=== PATIENT | female | born 1955 | race Caucasian/White ===

== ENCOUNTER → 2018-03-02 07:37 | Outpatient (CLI) | payer BC, SELFPAY ==
--- NOTE | 2018-03-02 07:54 | MR_ITS ---
MR lumbar spine wo con , MR 3-d myelogram/MRCP Ordering Physician: Elier Helms Patient Age: 62 years: Female HISTORY: ITS.REASON: LUMBAGO W/SCIATICA, LT LEG WEAKNESS, LEFT LEG NUMBNESS Low back pain. 2 weeks. Left leg pain numbness tingling. Patient bent forward and could not get up. TECHNIQUE: MRI lumbar spine without contrast Sagittal STIR, T1, T2, axial T1 and T2. On 1.5T Siemens wide bore MRI. 3-D MR myelogram image set obtained & performed on MRI workstation. Additional sagittal thin section T2 weighted dataset obtained from this latter acquisition as well (---76 CPT) COMPARISON :March 14, 2014 FINDINGS Slight progression of degenerative changes since 2013. L5/S1. Disc intact. Bilateral facet arthropathy only slightly narrows the central canal.. L4/5. Mild disc bulge most evident towards left foramen. Moderate/generous posterior element and facet hypertrophy. Bilateral foraminal and recess encroachment most pronounced on LEFT. Slight additional bulge the left since 2013 Mild spinal stenosis. L3/4 degenerative disc space narrowing most notable this level. Diffuse disc bulge with mild posterior hypertrophic ridging. Disc bulge most pronounced at encroach upon left foramen.. Generous facet and posterior element hypertrophy. Combination of features yield generous foraminal recess encroachment on LEFT more so than right. Mild progression of findings here since 2013. Borderline/Mild central canal stenosis L2/3. Mild disc space narrowing mild asymmetric bulge slightly more evident to the left. Bilateral Foraminal disc bulge most evident towards left foramen Mild to moderate left foraminal encroachment more so than right . L1/2, T12/L1 T 11/12. Disc intact neural foramen widely patent. Conus ends appropriately at L1. 3-D myelogram image set shows tapering, narrowing of the spinal canal most evident at L3/4 & L4/5. Scant on the left at L2/3 . The vertebral bodies appear intact. No lesions. Normal alignment. Facets appear satisfactory and unit L1 upper sacrum unremarkable. note: This study was dictated with a voice-recognition system. There may be typographical error is related to such. If they are significant please notify us for corrections IMPRESSION: Only slight progression of degenerative changes with slight additional encroachment upon left recess and left foramen L3/4 and L4/5 versus 2014 L4/5. It mild central canal stenosis and left foraminal encroachment. Only perhaps subtle progression since since 2014 Prominent facet hypertrophy mild disc bulge most evident towards left foramen. Recess and foraminal encroachment most evident the left. L3/L4 generous left foraminal & recess encroachment more so than right. Only perhaps subtle progression since since 2013 Borderline/mild spinal stenosis Degenerative disc space narrowing, with diffuse disc bulge most evident towards the left foramen. Bilateral facet hypertrophy. L2/3. Mild disc bulge towards left foramen. Mild facet hypertrophy.. Mild/moderate left foraminal encroachment L2 5/S1 Bilateral facet hypertrophy with mild disc bulge
== END ==
PROVIDERS: PCP Internal Medicine; Visit Provider Internal Medicine
DX: M54.42 Lumbago with sciatica, left side (principal); R29.898 Other symptoms and signs involving the musculoskeletal system
CPT/HCPCS: 72148; 76376

== ENCOUNTER → 2018-03-20 15:24 | Outpatient (CLI) | payer BC, SELFPAY ==
--- NOTE | 2018-03-20 | NVE_ITS ---
Venous Exam Indications: 729.5 Pain in limb. 729.81 Swelling of limb. IMPRESSIONS 1. There is no evidence of significant Reflux. 2. No evidence of deep vein thrombusinvolving the left lower extremity. 3. Superficial thrombophelbitis seen back of calf. History: c/o knot back of calf x 2 days Left lower extremity venous duplex evaluation. Doppler flow study including spectral analysis, color and hutchison scale imaging. Location: Vascular laboratory. Patient status: Outpatient. CRITICAL FINDINGS - Reported to: Dayana Saeed @ Dr. Helms office - 03/20/2018 - 15:55 - Superficial thrombophelbitis lt calf. Tables: Venous flow and imaging: + +-------+ + Location Overall Flow properties + +-------+ + Left common femoral Patent Normal phasicity; spontaneous; normal augmentation; compressible + +-------+ + Left saphenofemoral junction Patent Compressible + +-------+ + Left profunda femoral Patent Compressible + +-------+ + Left femoral Patent Normal phasicity; spontaneous; normal augmentation; compressible + +-------+ + Left greater saphenous Patent Normal phasicity; spontaneous; normal augmentation; compressible + +-------+ + Left popliteal Patent Normal phasicity; spontaneous; normal augmentation; compressible + +-------+ + Left posterior tibial Patent Compressible + +-------+ + Left peroneal Patent Compressible + +-------+ + Left gastrocnemius Patent Compressible + +-------+ + Left soleal Patent Compressible + +-------+ + (Report amended ) Electronically signed by: Ethan Carlosn [id number]
== END ==
PROVIDERS: PCP Internal Medicine; Visit Provider Internal Medicine
DX: M79.605 Pain in left leg (principal); M79.89 Other specified soft tissue disorders
CPT/HCPCS: 93971

== ENCOUNTER 2018-05-28 08:00 | Outpatient (RCR) | payer BC, SELFPAY | END 2018-05-28 08:05 | disposition home or self-care (01) | LOC: PT 08:00 | PROVIDERS: Visit Provider Physician Assistant | DX: M54.16 Radiculopathy, lumbar region (principal) | CPT/HCPCS: 97010; 97012; 97014; 97035; 97110; 97140; 97163; 97164; G0283 ==

== ENCOUNTER → 2018-06-19 08:26 | Outpatient (CLI) | payer BC, SELFPAY ==
--- NOTE | 2018-06-19 08:29 | MM_ITS ---
MM Dig screening mamm BI w/CAD CAD Screening COMPARISON: Digital mammograms with CAD 04/25/2016 and 03/23/2015 INDICATION: There is no personal or family history of breast cancer TECHNIQUE: Standard CC and MLO images were obtained. R2 CAD reviewed. FINDINGS: Scattered fibroglandular densities are seen throughout both breasts. There are few benign-appearing microcalcifications right breast. There are 2 tiny stable benign-appearing nodular densities near the axillary tail right breast. There is no suspicious lesion in either breast and there are no suspicious microcalcifications. IMPRESSION: Fibrofatty parenchyma no suspicious lesion seen BI-RADS Category: 2 Benign Finding(s) RECOMMENDED FOLLOW-UP: 1YR - 1 YEAR FOLLOW-UP (A letter has been sent to the patient regarding results of the study.)
== END ==
PROVIDERS: PCP Internal Medicine; Visit Provider Nurse Practitioner Obstetrics & Gynecology
DX: Z12.31 Encounter for screening mammogram for malignant neoplasm of breast (principal)
CPT/HCPCS: 77067

== ENCOUNTER 2018-07-08 09:01 | Observation (INO) ==
[2018-07-08 09:20] LABS: Basophils % 0.4 % (0.1-2.0); Eosinophils # 0.1 K/mm3 (0.0-0.4); Eosinophils % 1.2 % (0.1-12.0); Hemoglobin 14.6 g/dL (12.2-16.2); Lymphocytes # 2.3 K/mm3 (0.7-4.5); Lymphocytes % 24.5 % (10-50); Mean Corpuscular HGB Conc 34.7 g/dL (31.8-35.4); Mean Corpuscular Hemoglobin 31.5 pg (27.0-31.2); Mean Corpuscular Volume 90.8 fl (81-99); Mean Platelet Volume 7.7 fl (7.4-10.4); Monocytes # 0.5 K/mm3 (0.1-1.0); Monocytes % 4.9 % (1.7-9.3); Neutrophils # 6.6 K/mm3 (1.8-7.8); Platelet Count 207 K/mm3 (142-424); Red Blood Count 4.62 M/mm3 (4.20-5.40); Red Cell Distribution Width 12.8 % (11.5-17.5); White Blood Count 9.5 K/mm3 (4.8-10.8)
[2018-07-08 09:35] LABS: Anion Gap 13.9 mEq/L (5-15); Blood Urea Nitrogen 9 mg/dL (7-18); Calcium 9.2 mg/dL (8.5-10.1); Carbon Dioxide 25 mmol/L (21.0-32.0); Chloride 104 mmol/L (98-107); Glucose 185 mg/dL (74-106); Potassium 3.9 mmoL/L (3.5-5.1); Sodium 139 mmol/L (136-145)
[2018-07-08 09:42] LABS: Microscopic, Urine URINE MICROSCOPIC (MICROSCOPIC)
[2018-07-08 09:50] LABS: Appearance,Urine CLEAR (Clear); Bilirubin,Urine Negative (Negative); Blood, Urine Negative (Negative); Color,Urine STRAW (Yellow); Glucose,Urine (UA) Negative (Negative); Ketones,Urine Negative (Negative); Leukocyte Esterase,Urine 1+ (Negative); PH,Urine 6.5 (5.0-8.5); Protein,Urine Negative (Negative); Specific Gravity, Urine <= 1.005 (1.005-1.030); Urobilinogen,Urine 0.2 EU/dl (0.2)
[2018-07-08 10:06] LABS: Bacteria,Urine Trace /lpf
--- NOTE | 2018-07-08 10:30 | Emergency Department Note ---
ED Disposition Clinical Impression: Pulmonary embolism, bilateral Disposition: Admitted As Inpatient Condition on Discharge: Fair Referrals: Provider,Referral, [Primary Care Provider] - - Critical Care Critical Care Time: Yes Attestation: On 07/08/18, the high probability of a clinically significant, sudden or life threatening deterioration of the following system(s) required my full and direct attention, intervention and personal management. The time I documented below is in addition to time spent performing reported procedures but includes the following listed in this critical care notation. Vital system(s) involved:: Circulatory Failure My critical care processes included: Assessment & monitoring of V/S, Initial and Re-exams, Data Review/Interpretation, Coordinating Care, Medication Orders and management, Documentation Medical Decision Making - Graham Inquiry Pt receiving controlled substance: No Vital Signs: 07/08/18 09:02 07/08/18 09:20 07/08/18 09:32 Temperature 98.2 F Temperature Source Oral Pulse Rate [Apical] 75 69 68 Respiratory Rate 18 20 Blood Pressure [Right Arm] 159/87 H 127/66 Blood Pressure Mean [Right Arm] 111 86 Blood Pressure Source [Right Arm] Automatic Cuff Automatic Cuff Blood Pressure Position [Right Arm] Sitting Sitting 02 Sat by Pulse Oximetry 96 97 98 Oxygen Delivery Method Room Air Room Air Room Air 07/08/18 10:11 07/08/18 10:39 07/08/18 11:05 Temperature Temperature Source Pulse Rate [Apical] 65 68 77 Respiratory Rate Blood Pressure [Right Arm] 116/66 148/82 H 114/62 Blood Pressure Mean [Right Arm] 82 104 79 Blood Pressure Source [Right Arm] Automatic Cuff Automatic Cuff Automatic Cuff Blood Pressure Position [Right Arm] Sitting Sitting 02 Sat by Pulse Oximetry 97 97 97 Oxygen Delivery Method Room Air Room Air Room Air 07/08/18 12:11 07/08/18 12:33 Temperature Temperature Source Pulse Rate [Apical] 70 66 Respiratory Rate Blood Pressure [Right Arm] 139/68 124/66 Blood Pressure Mean [Right Arm] 91 85 Blood Pressure Source [Right Arm] Automatic Cuff Automatic Cuff Blood Pressure Position [Right Arm] Sitting Sitting 02 Sat by Pulse Oximetry 97 96 Oxygen Delivery Method Room Air Room Air - Lab Data Lab Results 07/08/18 09:10: WBC 9.5, RBC 4.62, Hgb 14.6, Hct 42.0, MCV 90.8, MCH 31.5 H, MCHC 34.7, RDW 12.8, Plt Count 207, MPV 7.7, Neut % (Auto) 69.0, Lymph % (Auto) 24.5, [place] % (Auto) 4.9, Eos % (Auto) 1.2, Baso % (Auto) 0.4, Neut # (Auto) 6.6, Lymph # (Auto) 2.3, [place] # (Auto) 0.5, Eos # (Auto) 0.1, Baso # (Auto) 0.0 07/08/18 09:10: Sodium 139, Potassium 3.9, Chloride 104, Carbon Dioxide 25, Anion Gap 13.9, BUN 9, Creatinine 0.92, Estimated Creat Clear 100, Estimated GFR 62, Est GFR ( Amer) 75, Glucose 185 H, Calcium 9.2, Troponin I < 0.02 07/08/18 09:35: Urine Color Straw, Urine Appearance Clear, Urine pH 6.5, Ur Specific [place] <= 1.005, Urine Protein Negative, Urine Glucose (UA) Negative, Urine Ketones Negative, Urine Blood Negative, Urine Nitrate Negative, Urine Bilirubin Negative, Urine Urobilinogen 0.2, Ur Leukocyte Esterase 1+ A, Urine RBC None, Urine WBC 10-20, Ur Squamous Epith Cells 5-10, Urine Bacteria Trace Result diagrams: 07/08/18 09:10 07/08/18 09:10 Orders (Tests/Meds): ED MEDICATIONS Generic Name Dose Route Start Last Admin Trade Name Freq PRN Reason Stop Dose Admin Ceftriaxone Sodium 1 gm/ 50 mls @ 100 mls/hr 07/08/18 10:45 07/08/18 11:00 Sodium Chloride IV 07/22/18 10:44 100 mls/hr Q24H [facility] Administration Protocol Miscellaneous 1 each 07/08/18 12:45 Heparin Drip Consult Request * 08/07/18 12:44 CONSULT PHARMACY [facility] Sodium Chloride 10 ml 07/08/18 09:10 Saline Flush 10ml Syringe IV 08/07/18 09:09 NEEDED PRN Maintain IV Site Discontinued Medications Generic Name Dose Route Start Last Admin Trade Name Freq PRN Reason Stop Dose Admin Ceftriaxone Sodium 1 gm/ 50 mls @ 100 mls/hr 07/08/18 10:15 Sodium Chloride IV 07/22/18 10:14 Q24H [facility] Protocol Azithromycin 500 mg/ Sodium 250 mls @ 250 mls/hr 07/08/18 10:15 Chloride IV 07/22/18 10:14 Q24H [facility] Protocol Ioversol 100 ml 07/08/18 12:10 07/08/18 12:10 Rad-Optiray 350 100ml Vial IV 07/08/18 12:11 100 ml ONCE ONE Administration Sodium Chloride 50 ml 07/08/18 12:10 07/08/18 12:10 Rad-Ns 50ml Vial IV 07/08/18 12:11 50 ml ONCE ONE Administration Sodium Chloride 10 ml 07/08/18 12:10 07/08/18 12:10 Rad-Saline Flush 10ml Syringe IV 07/08/18 12:11 10 ml ONCE ONE Administration ORDERS Category Date Time Status PT/PTT Stat Lab 07/08/18 09:10 Received Urine Culture Stat Micro 07/08/18 09:35 Received - CT Data CT Scan: Chest (CTA) Time Received: 12:[address] Reviewed: Yes: I discussed the CT results w/the radiologist Findings Narrative: Bilateral pulmonary emboli - US Data US Images: Lower Extremity Findings Narrative: As per [facility] procedure, ultrasound report received from mathematical engineering technician: Negative for DVT - ECG Data Tracing #1 EKG interpreted by Adrian Ortega MD: Rhythm: sinus Rate: 72 [place]: normal Ectopy: none Conduction: normal ST Segment Changes: none T Wave Changes: none Q Waves: none No evidence of acute ischemia or injury Normal electrocardiogram - Physician Consults Physician Consulted: kathy Time: 12:44 Reason -: Admission Comment/Response: Agrees to admit the patient to the hospital. We discussed the patient's clinical information, including history, exam, laboratory and radiolog y results and ED course. Per hospital procedure, I will write temporary bridge inpatient orders on the patient. Specific orders requested by the admitting physician: Heparin bolus and drip Medical Decision Narrative: March 20 the patient had a Doppler ultrasound of her left leg which showed superficial thrombophlebitis posterior left calf. General Adult HPI - General Chief complaint: Chest Pain Stated complaint: SOA, Chest pain Time Seen by Provider: 07/08/18 10:00 Mode of Arrival: Ambulatory Limitations: No Limitations Description of Symptoms (Recalled from ER Triage Doc. by RN): Pt reports feeling SOA since yesterday. Pt reports began having chest pain this morning, pt reports the pain woke her up. Pt reports pain is on the L side of her chest in her upper back and down her L arm. Pt reports pain has improved since it began but still present. - History of Present Illness HPI narrative: Complains of shortness of breath since yesterday. Has also developed pain in her left posterior chest and CVA area overnight which radiates into her left shoulder. It is not pleuritic. No cough or fever. States that she had a se mariam mac horse in her right leg last 6 days ago that went all the way up to her groin. She says it caused her to pass out and become very nauseated. Her leg was sore for 3 days afterwards. It does not hurt now. No swelling. She says she has a history of a blood clot in her left leg last February, not treated with blood thinners. - Related Data Home Medications Medication Instructions Recorded Confirmed Fexofenadine/Pseudoephedrine 1 each PO DAILY PRN 06/25/18 07/08/18 [Alee-D 24 Hour Tablet] Allergies Allergy/AdvReac Type Severity Reaction Status Date / Time SULFA (SULFONAMIDE) Allergy Intermediate I-HIVES Uncoded 04/22/17 15:22 Ciprofloxacin Allergy Unknown Uncoded 04/22/17 15:22 [facility] History - Hepatitis A Screen Drug use history?: No High risk sexual behaviors?: No History of sexually transmitted infection?: No Currently employed?: No Childcare worker?: No Do you have indoor plumbing?: Yes Do you have electricity?: Yes Attestation statement:: This patient has been screened for Hepatitis A risk factors. I have reviewed the patient's past medical history: Yes Medical History: Denies:: Cancer, Diabetes Mellitus Type 1, Diabetes Mellitus Type 2 Other Medical History: Reports: Other (allergies) Laterality Cases: Bilateral: Arthroscopy Shoulder, Tonsillectomy Other Surgeries: Yes: Tubal Ligation, Other (rotator cuff) - Social History Smoking Status: Current every day smoker Tobacco Type: cigarettes # Packs/Day (cigarettes): 2 Alcohol Intake: never Occupational Status: employed - Psychiatric History Expresses thoughts of harming self/others: None Suicide Plan Description: No Plan ROS Obtained: Yes All systems reviewed & no additional complaints - Constitutional Constitutional: Denies fever(s) - Cardiovascular Cardiovascular: Reports chest pain - Respiratory Respiratory: No cough, Yes dyspnea, No coughing up blood - Gastrointestinal Gastrointestingal: Denies: abdominal pain - Genitourinary Female Genitourinary: Denies dysuria, Reports flank pain, Denies urinary freq uency Physical Exam - General General appearance: alert, in no apparent distress - Head Head exam: atraumatic, normocephalic - Eye Eye exam: Present: normal appearance, PERRL, EOMI - ENT ENT exam: Present: mucous membranes moist - Neck Neck exam: Present: normal inspection, trachea midline - Chest Chest inspection: Present: normal inspection, symmetric chest wall rise. Absent: tenderness, rash - Respiratory Respiratory exam: Present: normal lung sounds bilaterally. Absent: respiratory distress - Cardiovascular Cardiovascular exam: Present: regular rate, normal rhythm, normal heart sounds - Abdominal Exam Abdominal exam: Present: soft. Absent: distention, tenderness - Extremities Exam Extremities exam: Present: normal inspection, other (Normal pedal pulses). Absent: tenderness, pedal edema - Neurological Exam Neurological exam: Present: alert, oriented X3 - Psychiatric Psychiatric exam: Present: normal affect, normal mood - Skin Skin exam: Present: warm, dry
--- NOTE | 2018-07-08 11:41 | Non-Invasive Vascular Report ---
"Venous Exam IMPRESSIONS No evidence of deep or superficial vein thrombosis involving the right lower extremity History: Right lower extremity pain. Risk factors: Hypertension. Obese. Patient had an episode of right leg pain 07/09/18 that seems to have resolved. Patient denies trauma. Right lower extremity venous duplex evaluation. Doppler flow study including spectral analysis, color and hutchison scale imaging. Location: Emergency department. Patient status: Emergency department. Tables: Venous flow and imaging: + +-------+ + |Location |Overall|Flow properties | + +-------+ + |Right common femoral |Patent |Normal phasicity; spontaneous; | | | |normal augmentation; compressible| + +-------+ + |Right saphenofemoral junction|Patent |Compressible | + +-------+ + |Right profunda femoral |Patent |Compressible | + +-------+ + |Right femoral |Patent |Normal phasicity; spontaneous; | | | |normal augmentation; compressible| + +-------+ + |Right greater saphenous |Patent |Normal phasicity; spontaneous; | | | |normal augmentation; compressible| + +-------+ + |Right popliteal |Patent |Normal phasicity; spontaneous; | | | |normal augmentation; compressible| + +-------+ + |Right posterior tibial |Patent |Compressible | + +-------+ + |Right peroneal |Patent |Compressible | + +-------+ + |Right gastrocnemius |Patent |Compressible | + +-------+ + |Right soleal |Patent |Compressible | + +-------+ + (Report amended ) Electronically signed by: Ethan Carlson [id number]"
[2018-07-08 12:53] LABS: Activated Partial Thrombo Time 27.9 seconds (23.6-34.0); INR 0.94 (0.9-1.1); Prothrombin Time 9.7 seconds (9.4-11.8)
--- NOTE | 2018-07-08 13:07 | Pharmacy Consult Notes ---
[facility] Pharmacy Heparin Dosing - Demographic Data Admission date:: 07/08/18 Date: 07/08/18 Time: 13:05 Allergies/Adverse Reactions: Allergies Allergy/AdvReac Type Severity Reaction Status Date / Time Sulfa (Sulfonamide Allergy Intermediate Hives Verified 07/08/18 12:51 Antibiotics) ciprofloxacin Allergy Unknown Verified 07/08/18 12:51 allergy reaction Height: 1.63 m Weight: 108.9 kg - Indication Medication therapy:: Heparin Patient Problems: Current Active Problems Pulmonary embolism, bilateral (Acute) Obesity, morbid, BMI 40.0-49.9 (Chronic) CVA?: No Bleeding problem?: No Kidney disease?: No [place]?: No Desired PTT range:: 60-80 seconds - Labs Anticoagulation Lab Results:: 07/08/18 09:10 Hgb 14.6 Hct 42.0 Plt Count 207 - Monitoring Dose Monitor 1 Date: 07/08/18 Time: 13:00 PTT Result:: 27.9 Infusion Rate:: 26 ML/HR WITH 5000 UNIT BOLUS Dose Monitor 2 Date: 07/08/18 Time: 19:30 PTT Result:: 44.6 Infusion Rate:: INCREASE TO 30ML/HR Dose Monitor 3 Date: 07/09/18 Time: 02:00 PTT Result:: 60.2 Infusion Rate:: 30 ML/HR Dose Monitor 4 Date: 07/09/18 Time: 09:00 PTT Result:: 63.0 Infusion Rate:: 30 ML/HR - Core Measures Is INR > or = 2 at discharge?: No Most Recent Labs:: Laboratory Results - last 24 hr 07/08/18 09:10: WBC 9.5, RBC 4.62, Hgb 14.6, Hct 42.0, MCV 90.8, MCH 31.5 H, MCHC 34.7, RDW 12.8, Plt Count 207, MPV 7.7, Neut % (Auto) 69.0, Lymph % (Auto) 24.5, [place] % (Auto) 4.9, Eos % (Auto) 1.2, Baso % (Auto) 0.4, Neut # (Auto) 6.6, Lymph # (Auto) 2.3, [place] # (Auto) 0.5, Eos # (Auto) 0.1, Baso # (Auto) 0.0 07/08/18 09:10: Sodium 139, Potassium 3.9, Chloride 104, Carbon Dioxide 25, Anion Gap 13.9, BUN 9, Creatinine 0.92, Estimated Creat Clear 100, Estimated GFR 62, Est GFR ( Amer) 75, Glucose 185 H, Calcium 9.2, Troponin I < 0.02 07/08/18 09:10: PT 9.7, INR 0.94, APTT 27.9 07/08/18 09:35: Urine Color Straw, Urine Appearance Clear, Urine pH 6.5, Ur Specific [place] <= 1.005, Urine Protein Negative, Urine Glucose (UA) Negative, Urine Ketones Negative, Urine Blood Negative, Urine Nitrate Negative, Urine Bilirubin Negative, Urine Urobilinogen 0.2, Ur Leukocyte Esterase 1+ A, Urine RBC None, Urine WBC 10-20, Ur Squamous Epith Cells 5-10, Urine Bacteria Trace Were Heparin and Warfarin started on the same day?: No If not, why?: PATIENT WAS SWITCHED TO ELIQUIS FROM HEPARIN DRIP
--- NOTE | 2018-07-08 13:17 | Pharmacy Consult Notes ---
[facility] Pharmacy VTE Monitoring - Patient Demographics Admission date: 07/08/18 Report Date: 07/08/18 Time: 13:16 Allergies/Adverse Reactions: Patient Allergies Sulfa (Sulfonamide Antibiotics) Allergy (Intermediate, Verified 07/08/18 12:51) Hives ciprofloxacin Allergy (Verified 07/08/18 12:51) Unknown allergy reaction Height: 1.63 m Weight: 108.9 kg Patient Problems: Current Active Problems Pulmonary embolism, bilateral (Acute) - VTE Risk Labs: VTE Related Lab Results Hgb 14.6 g/dL (12.2-16.2) 07/08/18 09:10 Hct 42.0 % (37.0-47.0) 07/08/18 09:10 Plt Count 207 K/mm3 (142-424) 07/08/18 09:10 PT 9.7 seconds (9.4-11.8) 07/08/18 09:10 INR 0.94 (0.9-1.1) 07/08/18 09:10 APTT 27.9 seconds (23.6-34.0) 07/08/18 09:10 BUN 9 mg/dL (7-18) 07/08/18 09:10 Creatinine 0.92 mg/dL (0.55-1.02) 07/08/18 09:10 Estimated Creat Clear 100 mL/min (50-200) 07/08/18 09:10 - Prophylaxis VTE Prophylaxis Ordered?: Yes Types of VTE Prophylaxis: Pharmacological Pharmacologic Type: Heparin (HEPARIN DRIP) - VTE Diagnosis Confirmed Treatment or plan recommended: Continue Current Treatment
--- NOTE | 2018-07-08 17:44 | History & Physical Report ---
*Admission Date: 07/08/18 *Chief complaint: Dyspnea and chest pain *History of present illness: 63-year-old white female with fairly minimal medical history who presented to the emergency department this morning with 24 hours of increased shortness of air with the sudden onset this morning of left-sided pleuritic chest pain. 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 Pleuritic chest pain prompted her to go to the ER. Workup was essentially negative to begin with but she also reported a significant history of right leg pain with leg cramping 1 week ago at her home that caused significant pain/nausea/vasovagal syncope and this prompted workup for Doppler testing of the right leg which was negative but CT scan of the chest showed bilateral pulmonary emboli. She is admitted for observation, heparinization and further diagnostic testing. She has a remote history of an SVT in February 2018, no treatment was started other than heat and supportive care, she has not been on aspirin therapy. She has the remote history of recurrent angioedema and hives, requiring EpiPen x1 but the last episode was 5 years ago. No other clotting disorder issues. No family history of clotting disorder. [facility] History I have reviewed the patient's past medical history: Yes Medical History: Denies:: Cancer, Diabetes Mellitus Type 1, Diabetes Mellitus Type 2, MRSA *Have you ever received a pneumonia vaccine?: No *Have you received a flu vaccine this season?: No Other Medical History: Reports: Arthritis, Other (allergies) Laterality Cases: Bilateral: Arthroscopy Shoulder, Tonsillectomy Other Surgeries: Yes: Tubal Ligation, Other (rotator cuff) Amputation: No Fractures: No - *Social History Educational Level: Attended College Smoking Status: Current every day smoker Tobacco Type: cigarettes # Packs/Day (cigarettes): 1 Alcohol Intake: never *Occupational Status:: employed Housing: house Household Members: spouse *Travel in the last 8 weeks: None - Psychiatric History Expresses thoughts of harming self/others: None Suicide Plan Description: No Plan Family Hx:: Coronary Artery Disease, Diabetes Comment: One brother has had a DVT, provoked by trauma Review of Systems - Review of Systems Review of systems:: pertinent systems reviewed and negative unless documented below - Constitutional Denies anorexia, Denies body ache(s), Denies chills, Denies excessive sweating, Denies fatigue, Denies fever(s), Denies lack of energy, Denies malaise - Eyes Denies blind spots, Denies blurry vision - ENT Denies abnormal hearing, Denies bleeding gums, Denies change in voice - *Cardiovascular Reports chest pain, Reports shortness of breath, Reports shortness of breath with activity, Reports leg swelling, Denies irregular heart rhythm, Denies lightheadedness, Denies shortness of breath when lying down, Denies rapid, pounding, or irregular heartbeat, Denies shortness of breath causing sudden awakening - *Respiratory Denies change in phlegm color, Denies chest congestion, Denies cough, Denies excessive phlegm production - *Gastrointestinal Denies abdominal pain, Denies belching, Denies bloating - *Genitourinary Denies abnormal periods, Denies abnormal vaginal bleeding - *Musculoskeletal Denies abnormal walking, Denies joint pain, Denies decreased muscle mass - Integumentary/Breasts Denies acne, Denies change in skin color, Denies changing lesions - *Neurologic Denies abnormal walking, Denies abnormal hearing - Psychiatric Denies abnormal sleep pattern, Denies hearing things others do not hear - Endocrine Denies cold intolerance, Denies excessive sweating, Denies rapid, pounding, or irregular heartbeat - Allergic/Immunologic Reports tongue swelling Meds Home Medications Medication Instructions Recorded Confirmed Type Fexofenadine/Pseudoephedrine 1 each PO DAILY PRN 06/25/18 07/08/18 History [Alee-D 24 Hour Tablet] Allergies Allergy/AdvReac Type Severity Reaction Status Date / Time Sulfa (Sulfonamide Allergy Intermediate Hives Verified 07/08/18 12:51 Antibiotics) ciprofloxacin Allergy Unknown Verified 07/08/18 12:51 allergy reaction Exam Vital signs and Labs for Last 24 Hours: Temp Pulse Resp BP Pulse Ox 98.2 F 73 19 153/75 H 98 07/08/18 15:25 07/08/18 15:25 07/08/18 15:25 07/08/18 15:25 07/08/18 15:25 Laboratory Results - last 24 hr 07/08/18 09:10: WBC 9.5, RBC 4.62, Hgb 14.6, Hct 42.0, MCV 90.8, MCH 31.5 H, MCHC 34.7, RDW 12.8, Plt Count 207, MPV 7.7, Neut % (Auto) 69.0, Lymph % (Auto) 24.5, [place] % (Auto) 4.9, Eos % (Auto) 1.2, Baso % (Auto) 0.4, Neut # (Auto) 6.6, Lymph # (Auto) 2.3, [place] # (Auto) 0.5, Eos # (Auto) 0.1, Baso # (Auto) 0.0 07/08/18 09:10: Sodium 139, Potassium 3.9, Chloride 104, Carbon Dioxide 25, Anion Gap 13.9, BUN 9, Creatinine 0.92, Estimated Creat Clear 100, Estimated GFR 62, Est GFR ( Amer) 75, Glucose 185 H, Calcium 9.2, Troponin I < 0.02 07/08/18 09:10: PT 9.7, INR 0.94, APTT 27.9 07/08/18 09:35: Urine Color Straw, Urine Appearance Clear, Urine pH 6.5, Ur Specific [place] <= 1.005, Urine Protein Negative, Urine Glucose (UA) Negative, Urine Ketones Negative, Urine Blood Negative, Urine Nitrate Negative, Urine Bilirubin Negative, Urine Urobilinogen 0.2, Ur Leukocyte Esterase 1+ A, Urine RBC None, Urine WBC 10-20, Ur Squamous Epith Cells 5-10, Urine Bacteria Trace I & O for Last 24 hours: Intake & Output 07/06/18 07/07/18 07/08/18 07/09/18 11:59 11:59 11:59 11:59 Weight 240 lb 240 lb 3 oz Narrative: Patient is morbidly obese but otherwise appears to be in good health. No JVD. Oropharynx clear. Cranial nerves and peripheral nerves are intact. Lungs are clear. Heart rate regular. Abdomen obese but soft, no skin lesions. Trace ankle edema bilaterally. Assessment and Plan (1) Obesity, morbid, BMI 40.0-49.9 Current visit: Yes Status: Chronic Category: Medical Code(s): E66.01 - Morbid (severe) obesity due to excess calories Chronic, complicates her care. (2) Pulmonary embolism, bilateral Current visit: Yes Status: Acute Category: Medical Code(s): I26.99 - Other pulmonary embolism without acute cor pulmonale Seems to be an unprovoked clot. I will order Doppler of the left leg to be complete tomorrow. Echocardiogram and carotid Doppler. Clotting disorder workup given lack of provoking event. Discussed options for oral anticoagulation with patient. Probable discharge home tomorrow on oral anticoagulation therapy.
--- NOTE | 2018-07-09 08:24 | Carotid Imaging Report ---
"Cerebrovascular Exam Indications: 780.2 Syncope and collapse. IMPRESSIONS 1. The bilateral vertebral arteries are patent with normal antegrade flow. 2. Study suggests less than 20% stenosis involving the right internal carotid artery. 3. Study suggests less than 20% stenosis involving the left internal carotid artery. History: Syncope. Risk factors: Current tobacco use. Carotid duplex study. Complete study and Doppler flow study including spectral analysis, color and hutchison scale imaging. Location: Bedside. Patient status: Inpatient. Tables: Arterial flow: + +--------+--------+ |Location |V sys |V ed | + +--------+--------+ |Right CCA - proximal|127cm/s |21.2cm/s| + +--------+--------+ |Right CCA - distal |104cm/s |23.6cm/s| + +--------+--------+ |Right ECA |83.3cm/s|--------| + +--------+--------+ |Right ICA - proximal|90.4cm/s|23.2cm/s| + +--------+--------+ |Right ICA - mid |80cm/s |35.8cm/s| + +--------+--------+ |Right ICA - distal |78.9cm/s|34.2cm/s| + +--------+--------+ |Right vertebral |61.2cm/s|--------| + +--------+--------+ |Left CCA - proximal |128cm/s |25.1cm/s| + +--------+--------+ |Left CCA - distal |103cm/s |22.3cm/s| + +--------+--------+ |Left ECA |78.2cm/s|--------| + +--------+--------+ |Left ICA - proximal |75.4cm/s|20.3cm/s| + +--------+--------+ |Left ICA - mid |99.2cm/s|31.4cm/s| + +--------+--------+ |Left ICA - distal |101cm/s |39.1cm/s| + +--------+--------+ |Left vertebral |44cm/s |--------| + +--------+--------+ Velocity ratios: + + + + + + | |Right, V sys|Right, V ed|Left, V sys|Left, V ed| + + + + + + |Max ICA/dist CCA|0.87 |1.52 |0.98 |1.75 | + + + + + + (Report amended ) Electronically signed by: Ethan Carlson [id number]"
--- NOTE | 2018-07-09 10:48 | Non-Invasive Vascular Report ---
"Venous Exam Indications: 729.5 Pain in limb. IMPRESSIONS 1. There is no evidence of significant Reflux. 2. Deep vein thrombosis involving the left popliteal vein History: Left lower extremity pain. PMH: Pulmonary embolus. Risk factors: Hypertension. Left lower extremity venous duplex evaluation. Doppler flow study including spectral analysis, color and hutchison scale imaging. Location: Bedside. Patient status: Inpatient. Tables: Venous flow and imaging: + + + + |Location |Overall |Flow properties | + + + + |Left common femoral |Patent |Normal phasicity; | | | |spontaneous; normal | | | |augmentation; | | | |compressible | + + + + |Left saphenofemoral |Patent |Compressible | |junction | | | + + + + |Left profunda femoral |Patent |Compressible | + + + + |Left femoral |Patent |Normal phasicity; | | | |spontaneous; normal | | | |augmentation; | | | |compressible | + + + + |Left greater saphenous |Patent |Normal phasicity; | | | |spontaneous; normal | | | |augmentation; | | | |compressible | + + + + |Left popliteal |Partially occluded|Normal phasicity; | | | |spontaneous; normal | | | |augmentation; partially | | | |compressible | + + + + |Left posterior tibial |Patent |Compressible | + + + + |Left peroneal |Patent |Compressible | + + + + |Left gastrocnemius |Patent |Compressible | + + + + |Left soleal |Patent |Compressible | + + + + (Report amended ) Electronically signed by: Ethan Carlson [id number]"
--- NOTE | 2018-07-09 14:21 | Discharge Summary ---
General - General Admission date:: 07/08/18 Discharge date: 07/09/18 HPI HPI: 63-year-old white female with fairly minimal medical history who presented to the emergency department this morning with 24 hours of increased shortness of air with the sudden onset this morning of left-sided pleuritic chest pain. 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 Pleuritic chest pain prompted her to go to the ER. Workup was essentially negative to begin with but she also reported a significant history of right leg pain with leg cramping 1 week ago at her home that caused significant pain/nausea/vasovagal syncope and this prompted workup for Doppler testing of the right leg which was negative but CT scan of the chest showed She is admitted for observation, heparinization and further diagnostic testing. bilateral pulmonary emboli. She has a remote history of an SVT in February 2018, no treatment was started other than heat and supportive care, she has not been on aspirin therapy. She has the remote history of recurrent angioedema and hives, requiring EpiPen x1 but the last episode was 5 years ago. No other clotting disorder issues. No family history of clotting disorder. Hospital Course Hospital Course: Patient was admitted and placed on a Heparin gtt. Venous dopplers, Echo and Carotid dopplers were obtained which were unremarkable. She is tolerating oral intake and able to ambulate to BR with minimal shortness of breath. Oxygen saturations are good on RA. Heparin gtt was d/c'd and she was given a dose of Eliquis. Discharge home on Eliquis 10 mg po BID x 7 days, then decrease to 5 mg po BID. FU with Dr. Monsivais on Friday. Objective Vital signs: Temp Pulse Resp BP Pulse Ox 98.0 F 62 18 118/83 96 07/09/18 11:24 07/09/18 11:24 07/09/18 11:24 07/09/18 11:24 07/09/18 11:24 Narrative: Alert and oriented x3. Rate and rhythm regular. Lung sounds clear and equal. No neuro deficits. Abd soft and nontender Results Labs on day of discharge: Labs from last 24 hours 07/09/18 07/09/18 07/08/18 09:25 02:47 20:13 APTT 63.0 H* 60.2 H* D 44.6 H D Preliminary micro results at discharge 07/08/18 09:35 Urine Culture - Preliminary Urine,Clean Catch NO GROWTH AFTER 24 HOURS DS: Diagnosis - Discharge Diagnosis (1) Obesity, morbid, BMI 40.0-49.9 Status: Chronic (2) Pulmonary embolism, bilateral Status: Acute Discharge Plan - Patient Discharge Instructions ACTIVITY: Continue current activity DIET: continue same diet Patient Instructions: DI for Pulmonary Embolism, DI for Urinary Tract Infection (UTI) - Follow up Plan Follow up with: Robert Monsivais MD [Staff Physician] - 07/13/18 Disposition: Home, Self-Alf Medications: Home Medications Medication Instructions Recorded Confirmed Type Apixaban [Eliquis] 5 mg PO BID 30 Days tab.ds.pk 07/09/18 Rx Prescriptions/Medication Reconciliation: New Apixaban [Eliquis] 5 mg PO BID 30 Days tab.ds.pk Discontinued Fexofenadine/Pseudoephedrine [Alee-D 24 Hour Tablet] 1 each PO DAILY PRN PRN Reason: allergies
--- NOTE | 2018-07-09 17:01 | Cardiology Report ---
PROCEDURE: 2-D M-mode and color Doppler study INDICATIONS FOR THE TEST: Chest pain COPD Heart Murmur Tobacco Smoking Palpitations Fatigue Syncope+ Edema+ Hypertension Diabetes Mellitus Rheumatic Fever SOB+LEMON Obesity+Hyperlipidemia Family History HD Additional History PE PATIENT INFORMATION HEIGHT: 64 WEIGHT:240 GENDER: Female B/P: 153/75 2-D/M-MODE INTERPRETATION: 2-D MEASUREMENTS OBSERVED VALUES IN CMS Right Ventricular Dimension (RVDd) 2.5 Interventricular Septum (Thickness)(IVsd) 1.2 Left Ventricular Internal Dimensions(LVIDd) 2.7 Left Ventricular Posterior Wall (Thickness)(LVPWd) 1.1 Aortic Root 2.9 Aortic Cusp Separation 2.0 Left Atrial Dimensions (LAD) 3.2 2D 1. Left atrium is normal size, left ventricle is normal size, left ventricle wall thickness is upper limit of the normal, preserved left ventricular systolic function, visually estimated ejection fraction of 55% with no regional wall motion abnormality. 2. The right atrium and right ventricle are normal size and contractility. 3. The aortic valve is minimally thickened and fibrosed. 4. The mitral and tricuspid valvular grossly normal. 5. The pulmonic valve is poorly visualized. 6. No significant pericardial effusion noted. DOPPLER INTERROGATION: Doppler interrogation of the aortic, mitral and tricuspid valvular presence of mild mitral and tricuspid regurgitation, tricuspid regurgitation jet velocity is inadequate for calculation of the right ventricular systolic pressure, grade 1 diastolic dysfunction seen without tissue Doppler evidence of raised left atrial pressure. CONCLUSION: 1. Normal left ventricular size, preserved left ventricular systolic function, visually estimated ejection fraction of 55% with no regional wall motion abnormality, grade 1 diastolic dysfunction seen without tissue Doppler evidence of raised left atrial pressure. 2. Mild mitral and tricuspid regurgitation 3. No significant pericardial effusion noted.
[2018-07-13 08:00] LABS: Anti-Thrombin III Antigen 91 % (72-124); Protein S Antigen, Total 122 % (60-150)
[2018-07-14 03:11] LABS: Protein C Antigen 119 % (60-150)
== END 2018-07-09 13:24 | disposition home or self-care (01) ==
LOC: ER 09:01 → 2ND 13:00 → INTOOBSV 13:00 → 2ND 14:05
PROVIDERS: ADMIT Internal Medicine Adolescent Medicine; ATTEND Internal Medicine Adolescent Medicine
CPT/HCPCS: 36415; 71020; 71046; 71275; 80048; 81001; 84484; 85025; 85220; 85301; 85302; 85305; 85306; 85610; 85730; 87086; 93005; 93306; 93880; 93971; 96365; 96375; 99284; G0378; Q9967

== ENCOUNTER → 2018-07-20 15:44 | Outpatient (CLI) | payer BC, SELFPAY ==
--- NOTE | 2018-07-20 | CT_ITS ---
CT head/brain wo con HISTORY: HISTORY of pulmonary emboli 07/08/2018 patient now on blood thinner ITS.REASON: INTRACTABLE HEADACHE ORDERING PHYSICIAN: Robert Monsivais MD PATIENT AGE: 63 years COMPARISON: None TECHNIQUE: Axial images obtained without contrast. Brain and bone windows reviewed. All CT scans at the facility use one or more dose reduction, viz: automated exposure control, ma/kV adjustment per patient size (including targeted exams where dose is matched to indication, i.e. head), or iterative reconstruction technique. FINDINGS: No acute intracranial findings. No midline shift, mass effect, intracranial hemorrhage, hydrocephalus. No subdural nor Extra-axial fluid collection is evident. . Posterior fossa unremarkable. The calvarium has an unremarkable appearance. Mastoid air cells well-developed and clear. No mastoid effusion. Visualized Ethmoid sphenoid and frontal sinuses clear. No sinus air-fluid levels.. Maxillary sinus is grossly unremarkable on the hook up view IMPRESSION: -------- No acute intracranial findings.. Negative CT of brain
[2018-07-20 16:20] LABS: Basophils # 0.1 K/mm3 (0-0.2); Basophils % 0.9 % (0.1-2.0); Eosinophils # 0.2 K/mm3 (0.0-0.4); Eosinophils % 2.8 % (0.1-12.0); Hematocrit 39.9 % (37.0-47.0); Hemoglobin 13.5 g/dL (12.2-16.2); Lymphocytes # 1.8 K/mm3 (0.7-4.5); Lymphocytes % 33.2 % (10-50); Mean Corpuscular HGB Conc 33.9 g/dL (31.8-35.4); Mean Corpuscular Hemoglobin 30.8 pg (27.0-31.2); Mean Corpuscular Volume 90.9 fl (81-99); Mean Platelet Volume 6.9 fl (7.4-10.4); Monocytes # 0.3 K/mm3 (0.1-1.0); Monocytes % 5.6 % (1.7-9.3); Neutrophils % 57.4 % (37.0-80.0); Platelet Count 402 K/mm3 (142-424); Red Blood Count 4.39 M/mm3 (4.20-5.40); Red Cell Distribution Width 12.7 % (11.5-17.5); White Blood Count 5.3 K/mm3 (4.8-10.8)
[2018-07-20 17:17] LABS: Erythrocyte Sedimentation Rate 49 mm/hr (0-30)
[2018-07-20 17:27] LABS: Alanine Aminotransferase 31 U/L (12-78); Albumin Level 3.4 gm/dL (3.4-5.0); Alkaline Phosphatase 69 U/L (46-116); Aspartate Amino Transferase 21 U/L (15-37); Bilirubin,Total 0.3 mg/dL (0.2-1.0); Blood Urea Nitrogen 12 mg/dL (7-18); Calcium 9.5 mg/dL (8.5-10.1); Carbon Dioxide 26 mmol/L (21.0-32.0); Chloride 106 mmol/L (98-107); Creatinine,Serum 1.07 mg/dL (0.55-1.02); Estimated Glomerular Filt Rate 52 ml/min (>60); GFR (African American) 63 ML/MIN (>60); Globulin 3.5 gm/dl (1.3-3.2); Glucose 116 mg/dL (74-106); Sodium 143 mmol/L (136-145); Total Protein,Serum 6.9 gm/dL (6.4-8.2)
== END ==
LOC: LAB 15:44 → RAD 15:59
PROVIDERS: PCP Internal Medicine Adolescent Medicine; Visit Provider Internal Medicine Adolescent Medicine
DX: R51 Headache (principal)
CPT/HCPCS: 36415; 70450; 80053; 85025; 85651

== ENCOUNTER → 2019-02-09 10:12 | Outpatient (POV) | payer BC, SELFPAY | PROVIDERS: Visit Provider Dermatology | DX: Z00.00 Encounter for general adult medical examination without abnormal findings (principal) ==

== ENCOUNTER → 2019-03-04 07:47 | Outpatient (CLI) | payer BC, SELFPAY ==
[2019-03-04 08:12] LABS: Basophils # 0.1 K/mm3 (0-0.2); Basophils % 0.8 % (0.1-2.0); Eosinophils # 0.1 K/mm3 (0.0-0.4); Eosinophils % 2.6 % (0.1-12.0); Hematocrit 42.1 % (37.0-47.0); Hemoglobin 14.3 g/dL (12.2-16.2); Lymphocytes # 2.6 K/mm3 (0.7-4.5); Lymphocytes % 46.3 % (10-50); Mean Corpuscular HGB Conc 33.9 g/dL (31.8-35.4); Mean Corpuscular Hemoglobin 31.8 pg (27.0-31.2); Mean Corpuscular Volume 93.8 fl (81-99); Mean Platelet Volume 7.7 fl (7.4-10.4); Monocytes # 0.3 K/mm3 (0.1-1.0); Monocytes % 4.6 % (1.7-9.3); Neutrophils # 2.6 K/mm3 (1.8-7.8); Neutrophils % 45.6 % (37.0-80.0); Platelet Count 249 K/mm3 (142-424); Red Blood Count 4.49 M/mm3 (4.20-5.40); White Blood Count 5.6 K/mm3 (4.8-10.8)
[2019-03-04 10:19] LABS: Alanine Aminotransferase 26 U/L (12-78); Albumin Level 3.4 gm/dL (3.4-5.0); Albumin/Globulin Ratio 1.1 (1.1-1.8); Alkaline Phosphatase 57 U/L (46-116); Anion Gap 12.2 mEq/L (5-15); Aspartate Amino Transferase 14 U/L (15-37); Bilirubin,Total 0.4 mg/dL (0.2-1.0); Blood Urea Nitrogen 17 mg/dL (7-18); Calcium 9.3 mg/dL (8.5-10.1); Carbon Dioxide 25 mmol/L (21.0-32.0); Chloride 106 mmol/L (98-107); Chol/HDL Ratio 4.6 (1-3.5); Cholesterol 179 mg/dL (140-200); Creatinine,Serum 0.95 mg/dL (0.55-1.02); Estimated Glomerular Filt Rate 60 ml/min (>60); GFR (African American) 72 ML/MIN (>60); Globulin 3.2 gm/dl (1.3-3.2); Glucose 148 mg/dL (74-106); HDL Cholesterol 39 mg/dL (29-89); LDL Cholesterol 104 mg/dL (0-130); Potassium 4.2 mmoL/L (3.5-5.1); Sodium 139 mmol/L (136-145); Thyroid Stimulating Hormone 5.21 uIU/ml (0.358-3.740); Total Protein,Serum 6.6 gm/dL (6.4-8.2); Triglycerides 178 mg/dL (30-200); VLDL Cholesterol 36 mg/dL (0-40)
[2019-03-04 15:16] LABS: Hemoglobin A1C 6.1 % (0.0-7.0)
== END ==
PROVIDERS: Visit Provider Internal Medicine Adolescent Medicine
DX: G43.109 Migraine with aura, not intractable, without status migrainosus (principal); R73.09 Other abnormal glucose; Z86.711 Personal history of pulmonary embolism
CPT/HCPCS: 36415; 80053; 80061; 83036; 84443; 85025

== ENCOUNTER → 2019-06-09 08:07 | Outpatient (CLI) | payer BC, SELFPAY ==
[2019-06-09 08:28] LABS: Basophils % 0.5 % (0.1-2.0); Eosinophils # 0.2 K/mm3 (0.0-0.4); Eosinophils % 3.1 % (0.1-12.0); Hematocrit 41.5 % (37.0-47.0); Hemoglobin 14.2 g/dL (12.2-16.2); Lymphocytes # 2.2 K/mm3 (0.7-4.5); Mean Corpuscular HGB Conc 34.2 g/dL (31.8-35.4); Mean Corpuscular Hemoglobin 30.9 pg (27.0-31.2); Mean Corpuscular Volume 90.3 fl (81-99); Monocytes # 0.2 K/mm3 (0.1-1.0); Monocytes % 4.5 % (1.7-9.3); Neutrophils # 2.7 K/mm3 (1.8-7.8); Neutrophils % 50.8 % (37.0-80.0); Platelet Count 263 K/mm3 (142-424); White Blood Count 5.4 K/mm3 (4.8-10.8)
[2019-06-09 09:50] LABS: Alanine Aminotransferase 31 U/L (12-78); Albumin Level 3.7 gm/dL (3.4-5.0); Albumin/Globulin Ratio 1.3 (1.1-1.8); Alkaline Phosphatase 59 U/L (46-116); Aspartate Amino Transferase 22 U/L (15-37); Bilirubin,Total 0.5 mg/dL (0.2-1.0); Blood Urea Nitrogen 13 mg/dL (7-18); Calcium 8.9 mg/dL (8.5-10.1); Carbon Dioxide 27 mmol/L (21.0-32.0); Chloride 106 mmol/L (98-107); Chol/HDL Ratio 4.7 (1-3.5); Cholesterol 179 mg/dL (140-200); Creatinine,Serum 1.13 mg/dL (0.55-1.02); Estimated Glomerular Filt Rate 49 ml/min (>60); GFR (African American) 59 ML/MIN (>60); Globulin 2.8 gm/dl (1.3-3.2); Glucose 153 mg/dL (74-106); HDL Cholesterol 38 mg/dL (29-89); LDL Cholesterol 103 mg/dL (0-130); Sodium 142 mmol/L (136-145); Thyroid Stimulating Hormone 2.64 uIU/ml (0.358-3.740); Total Protein,Serum 6.5 gm/dL (6.4-8.2); Triglycerides 188 mg/dL (30-200); VLDL Cholesterol 38 mg/dL (0-40)
== END ==
PROVIDERS: Visit Provider Internal Medicine Adolescent Medicine
DX: Z00.00 Encounter for general adult medical examination without abnormal findings (principal); E03.9 Hypothyroidism, unspecified; Z86.711 Personal history of pulmonary embolism
CPT/HCPCS: 36415; 80053; 80061; 84443; 85025

== ENCOUNTER → 2019-06-14 10:38 | Outpatient (CLI) | payer BC, SELFPAY ==
--- NOTE | 2019-06-14 10:48 | XR_ITS ---
PROCEDURE: XR HAND RT MIN 3V CLINICAL INDICATION: BILATERAL HAND OSTEOARTHRITIS COMPARISON: No exams were available for comparison FINDINGS: No fracture or dislocation. No lytic or blastic change. There is normal mineralization. There are mild osteoarthritic changes at the PIP joint of the 3rd digit Other findings:None. IMPRESSION: Mild osteoarthritic change PIP joint of the 3rd digit otherwise negative Dictated by: Ethan Carlson MD 06/14/2019 11:17 Electronically signed by Ethan Carlson MD in [facility] 06/14/2019 11:17
--- NOTE | 2019-06-14 10:48 | XR_ITS ---
PROCEDURE: XR HAND LT MIN 3V CLINICAL INDICATION: BILATERAL HAND OSTEOARTHRITIS COMPARISON: XR HAND RT MIN 3V from 06/14/2019 FINDINGS: No fracture or dislocation. No lytic or blastic change. There is normal mineralization. Minimal osteoarthritic change PIP joint of the 3rd digit Other findings:None. IMPRESSION: Minimal osteoarthritic change PIP joint 3rd digit otherwise negative Dictated by: Ethan Carlson MD 06/14/2019 11:18 Electronically signed by Ethan Carlson MD in [facility] 06/14/2019 11:18
== END ==
PROVIDERS: PCP Internal Medicine Adolescent Medicine; Visit Provider Internal Medicine Adolescent Medicine
DX: M19.042 Primary osteoarthritis, left hand (principal); M19.041 Primary osteoarthritis, right hand
CPT/HCPCS: 73130

== ENCOUNTER → 2019-06-22 09:33 | Outpatient (CLI) | payer BC, SELFPAY ==
--- NOTE | 2019-06-22 09:36 | MM_ITS ---
PROCEDURE: MM DIG SCREENING MAMM BI W/CAD CLINICAL INDICATION: SCREENING COMPARISON: [facility] DIG MAMM-SCREEN IVY from 03/23/2015 [facility] DIG MAMM-SCREEN IVY from 04/25/2016 [facility] MM Dig screening mamm BI w/CAD from 06/19/2018 TECHNIQUE: Standard CC and MLO images and 3D Tomosynthesis was obtained. R2 CAD reviewed. FINDINGS: Breasts are of average density. Benign appearing nodules in the upper-outer quadrant of the right breast are unchanged and likely benign lymph nodes. Benign appearing calcifications are seen bilaterally. There are no discrete masses suspicious clustered microcalcifications to suggest malignancy. IMPRESSION: BI-RAD Category: 2 benign findings FOLLOW-UP: 1 year follow-up recommended (A letter has been sent to the patient regarding results of the study.) Dictated by: Gumaro Conroy 06/22/2019 18:13 Electronically signed by Gumaro Conroy in [facility] 06/22/2019 18:13
== END ==
PROVIDERS: PCP Internal Medicine Adolescent Medicine; Visit Provider Internal Medicine Adolescent Medicine
DX: Z12.31 Encounter for screening mammogram for malignant neoplasm of breast (principal)
CPT/HCPCS: 77063; 77067

== ENCOUNTER → 2019-08-02 12:41 | Outpatient (CLI) | payer BC, SELFPAY ==
[2019-08-02 13:35] LABS: Basophils # 0.1 K/mm3 (0-0.2); Basophils % 0.8 % (0.1-2.0); Eosinophils # 0.2 K/mm3 (0.0-0.4); Eosinophils % 2.5 % (0.1-12.0); Hematocrit 43.6 % (37.0-47.0); Hemoglobin 14.6 g/dL (12.2-16.2); Lymphocytes # 2.7 K/mm3 (0.7-4.5); Lymphocytes % 41.3 % (10-50); Mean Corpuscular HGB Conc 33.5 g/dL (31.8-35.4); Mean Corpuscular Volume 92.3 fl (81-99); Mean Platelet Volume 7.7 fl (7.4-10.4); Monocytes # 0.3 K/mm3 (0.1-1.0); Monocytes % 4.5 % (1.7-9.3); Neutrophils # 3.3 K/mm3 (1.8-7.8); Platelet Count 260 K/mm3 (142-424); Red Blood Count 4.72 M/mm3 (4.20-5.40); Red Cell Distribution Width 13.4 % (11.5-17.5); White Blood Count 6.4 K/mm3 (4.8-10.8)
[2019-08-02 14:53] LABS: Alanine Aminotransferase 35 U/L (12-78); Albumin Level 4.3 g/dl (3.5-5.0); Albumin/Globulin Ratio 1.5 (1.1-1.8); Alkaline Phosphatase 55 U/L (38-126); Anion Gap 13.1 mEq/L (5-15); Aspartate Amino Transferase 37 U/L (14-36); Bilirubin,Total 0.4 mg/dl (0.2-1.3); Blood Urea Nitrogen 15 mg/dl (7-17); Calcium 10.1 mg/dl (8.4-10.2); Carbon Dioxide 26 mmol/L (22.0-30.0); Chloride 103 mmol/L (98-107); Creatine Kinase 78 U/L (30-135); Estimated Glomerular Filt Rate 63 ml/min (>60); GFR (African American) 77 ML/MIN (>60); Globulin 2.9 g/dL (1.3-3.2); Glucose 119 mg/dl (74-100); Potassium 4.1 mmoL/L (3.5-5.1); Sodium 138 mmol/L (136-145); Total Protein,Serum 7.2 g/dl (6.3-8.2)
[2019-08-02 14:59] LABS: C-Reactive Protein 6.8 mg/L (0-4)
[2019-08-02 15:02] LABS: Erythrocyte Sedimentation Rate 17 mm/hr (0-30)
[2019-08-03 13:50] LABS: Anti-Centromere B Antibodies <0.2 AI (0.0-0.9); Anti-Jo-1 <0.2 AI (0.0-0.9); Anti-Smith Antibody <0.2 AI (0.0-0.9); Antichromatin Antibodies <0.2 AI (0.0-0.9); Antiscleroderma-70 Antibodies 0.4 AI (0.0-0.9); RNP Antibodies <0.2 AI (0.0-0.9); Sjogren's Anti-SS-A <0.2 AI (0.0-0.9); Sjogren's Anti-SS-B <0.2 AI (0.0-0.9)
[2019-08-05 13:09] LABS: Anti-DNA (DS) Ab Qn 1 IU/mL (0-9)
== END ==
PROVIDERS: Visit Provider Internal Medicine Adolescent Medicine
DX: R21 Rash and other nonspecific skin eruption (principal); M79.10 Myalgia, unspecified site
CPT/HCPCS: 36415; 80053; 82550; 85025; 85651; 86140; 86225; 86235

== ENCOUNTER → 2019-09-09 08:22 | Outpatient (CLI) | payer BC, SELFPAY ==
[2019-09-09 08:48] LABS: Basophils # 0.1 K/mm3 (0-0.2); Basophils % 0.8 % (0.1-2.0); Eosinophils # 0.2 K/mm3 (0.0-0.4); Hematocrit 42.4 % (37.0-47.0); Lymphocytes # 2.6 K/mm3 (0.7-4.5); Lymphocytes % 42.7 % (10-50); Mean Corpuscular Volume 93.9 fl (81-99); Mean Platelet Volume 7.9 fl (7.4-10.4); Monocytes # 0.3 K/mm3 (0.1-1.0); Monocytes % 4.1 % (1.7-9.3); Neutrophils # 3.1 K/mm3 (1.8-7.8); Neutrophils % 49.4 % (37.0-80.0); Platelet Count 249 K/mm3 (142-424); Red Blood Count 4.51 M/mm3 (4.20-5.40); Red Cell Distribution Width 13.3 % (11.5-17.5); White Blood Count 6.2 K/mm3 (4.8-10.8)
[2019-09-09 09:27] LABS: Alanine Aminotransferase 35 U/L (12-78); Albumin Level 4.3 g/dl (3.5-5.0); Albumin/Globulin Ratio 1.6 (1.1-1.8); Alkaline Phosphatase 55 U/L (38-126); Aspartate Amino Transferase 36 U/L (14-36); Bilirubin,Total 0.4 mg/dl (0.2-1.3); Blood Urea Nitrogen 10 mg/dl (7-17); Calcium 9.6 mg/dl (8.4-10.2); Carbon Dioxide 23 mmol/L (22.0-30.0); Chloride 106 mmol/L (98-107); Estimated Glomerular Filt Rate 72 ml/min (>60); GFR (African American) 88 ML/MIN (>60); Globulin 2.7 g/dL (1.3-3.2); Glucose 157 mg/dl (74-100); Sodium 135 mmol/L (136-145)
[2019-09-09 09:58] LABS: Thyroid Stimulating Hormone 2.94 uIU/mL (0.465-4.68)
== END ==
PROVIDERS: Visit Provider Internal Medicine Adolescent Medicine
DX: E03.9 Hypothyroidism, unspecified (principal); Z86.711 Personal history of pulmonary embolism
CPT/HCPCS: 36415; 80053; 84443; 85025

== ENCOUNTER → 2019-09-21 07:50 | Outpatient (CLI) | payer BC, SELFPAY ==
--- NOTE | 2019-09-21 08:10 | CT_ITS ---
PROCEDURE: CT LUNG SCREENING CLINICAL INDICATION: FORMER SMOKER Thirty-five pack-year smoking history, asymptomatic for lung cancer [facility] TECHNIQUE: The exam was performed on a GE Light Speed [address] scanner using 2.90 mGy CTDI. A low dose helical CT CHEST was performed on a multi-detector scanner. All CT scans at the facility use one or more dose reduction, viz: automated exposure control, ma/kV adjustment per patient size (including targeted exams where dose is matched to indication, i.e. head), or iterative reconstruction technique. The LDCT was performed in a facility that meets the criteria for the screening program. Data regarding this exam was submitted to ACR which is an approved registry. The order for this exam indicates that it came as a result of a lung cancer screening counseling shard decision-making visit that included all the elements required of such a visit including smoking cessation. The radiologist interpreting this exam meets the CMS criteria for the LDCT lung cancer screening program. The exam is reported using the Lung-RADS classification scale and reported to the ACR registry. NOTE: This study was performed for the specific purposes of lung cancer screening and is not an alternative to diagnostic chest CT. RADIATION DOSE: CTDI vol(CT dose Index-volume) = 2.90mG DLP (Dose Length Product) = 91.69 mGcm Lung Rads Category: FINDINGS: COPD with mild prominence of the interstitium. Old granulomatous disease. Scattered areas of scarring no suspicious pulmonary nodules OTHER FINDINGS: There are few scattered small mediastinal nodes which are nonspecific and not significantly changed. IMPRESSION: Lung rads category 2 benign. Recommend 12 month LDCT screening Dictated by: Ethan Carlson MD 09/26/2019 11:00 Electronically signed by Ethan Carlson MD in [facility] 09/26/2019 11:00
== END ==
PROVIDERS: PCP Internal Medicine Adolescent Medicine; Visit Provider Internal Medicine Adolescent Medicine
DX: Z87.891 Personal history of nicotine dependence (principal); Z12.2 Encounter for screening for malignant neoplasm of respiratory organs

== ENCOUNTER → 2019-10-12 09:25 | Outpatient (POV) | payer BC, SELFPAY ==
[2019-10-12 09:55] VITALS: BP 138/92; PULSE 65; RESP 18; TEMP 36.8; O2SAT 98; BMI 45.5
--- NOTE | 2019-10-12 15:43 | HMH.PMCON ---
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 Patient has had good relief in the past with injections. She is on Xarelto we will find out if she can come off of this prior to her injection I will follow-up with her afterwards reassess her symptoms at that time she has been instructed to call the office if she has any issues prior to next appointment.Dr. Mcelroy has reviewed this note and agrees with this plan of care. This note was dictated using voice recognition software and may contain errors or omissions HPI - Data of Consult Consult date: 10/12/19 Requesting Physician: Michelle Griffiths APRN Primary Care Provider: Robert Monsivais MD - Consult Narrative Reason for consult: Back pain and leg pain History of present illness: Ms. Leyva is a 64 year old female who presents today for consultation in regards to her back and leg pain. She rates her pain a 1 out of 10 at this time however it does flare she is had much more pain in the recent months. She does have a MRI showing facet arthropathy mild spinal stenosis degenerative disc disease and disc bulge. Patient has had injections in the past which worked for her somewhat however she is having quite a bit more nerve pain in her legs especially her right leg. She did have a blood clot in his leg and she seems to continue to have some nerve pain related to that. Patient and I talked about options in regards to chronic pain management including injective therapies, neuro stimulation and intrathecal therapies were briefly mentioned. Patient currently on Xarelto. CC: Michelle Griffiths APRN [facility] History I have reviewed the patient's past medical history: Yes Medical History: Reports:: Deep Vein Thrombosis, Diabetes Mellitus Type 2, Hypertension Denies:: Cancer, Diabetes Mellitus Type 1, MRSA *Have you ever received a pneumonia vaccine?: Yes *Have you received a flu vaccine this season?: Yes Other Medical History: Reports: Arthritis, Thyroid Disease, Other (allergies) Laterality Cases: Bilateral: Arthroscopy Shoulder, Tonsillectomy Other Surgeries: Yes: Tubal Ligation, Other (rotator cuff) Amputation: No Fractures: No - *Social History Smoking Status: Former smoker Tobacco Type: cigarettes # Packs/Day (cigarettes): 1 Alcohol Intake: never *Occupational Status:: other Housing: house Household Members: other *Travel in the last 8 weeks: None Family Hx:: Coronary Artery Disease, Diabetes Review of Systems - Review of Systems ROS General: no recent weight change, no fever, no sleep disturbances Respiratory: no cough, no shortness of air, no recurring pulmonary infections Cardiovascular/Peripheral Vascular: No chest pain, No palpitations, no edema, no shortness of breath. Gastrointestinal: no new onset incontinence, normal bowel movements reported Genitourinary: no new onset incontinence Musculoskeletal: Back pain, leg pain Psychiatric: normal mood/ affect Neurological: [denies new onset weakness in extremities], [denies new onset balance issues] Meds Allergies Allergy/AdvReac Type Severity Reaction Status Date / Time Sulfa (Sulfonamide Allergy Intermediate Hives Verified 07/08/18 12:51 Antibiotics) ciprofloxacin Allergy Unknown Verified 07/08/18 12:51 allergy reaction Objective Vital signs: Temp Pulse Resp BP Pulse Ox 98.2 F 65 18 138/92 H 98 10/12/19 09:55 10/12/19 09:55 10/12/19 09:55 10/12/19 09:55 10/12/19 09:55 Narrative: Physi
== END ==
PROVIDERS: PCP Internal Medicine Adolescent Medicine; Visit Provider Clinical Nurse Specialist Family Health
DX: M47.896 Other spondylosis, lumbar region (principal)
CPT/HCPCS: 99202

== ENCOUNTER 2019-10-21 13:08 | Emergency (ER) | payer BC, SELFPAY ==
[2019-10-21 13:23] VITALS: BP 142/91; PULSE 72; RESP 19; TEMP 36.6; O2SAT 96; BMI 100.3
--- NOTE | 2019-10-21 13:27 | XR_ITS ---
PROCEDURE: XR FOOT LT MIN 3V CLINICAL INDICATION: splinter in foot COMPARISON: No exams were available for comparison FINDINGS: No fracture or dislocation. No lytic or blastic change. There is normal mineralization. The joint spaces are well-preserved. No significant degenerative/arthritic changes. No erosive changes evident. Other findings:There are prominent spurs of the calcaneus at the insertion of Achilles tendon and plantar tendon. There is no definite opaque or semi opaque foreign body with seen within the soft tissues of the foot IMPRESSION: Prominent calcaneal spurs otherwise unremarkable left foot Dictated by: Dr. Eduardo Joyce MD 10/21/2019 13:[address] Eduardo Joyce MD in [place] 10/21/2019 13:48
--- NOTE | 2019-10-21 13:33 | HMH.EDUTC ---
[facility] [place] Impression: Splinter in skin Disposition: Home, Self-Care Condition on Discharge: Good Instructions: Amoxicillin and Clavulanic Acid, DI for Splinter Removal Additional Instructions: Keep area clean and dry Watch for signs of infection such as but not limited too redness, drainage swelling, warmth etc Return if needed Follow up with family doctor if no improvement and immediately if any worsening of symptoms Take antibiotics as prescribed Straight to ER if any life threatening symptoms Prescriptions: Amoxicillin/Potassium Clav [Augmentin 500mg tab] 1 tab PO BID 5 Days #10 tab Transmission Status: Received by [facility] Referrals: Robert Monsivais MD [Primary Care Provider] - As needed Time of Disposition: 14:25 Medical Decision Making - Graham Inquiry Pt receiving controlled substance: No Graham was queried for this patient: No Vital Signs: 10/21/19 13:23 10/21/19 14:35 Temperature 97.9 F 97.9 F Temperature Source Oral Pulse Rate 72 Pulse Rate [Right Brachial] 72 Respiratory Rate 19 19 Blood Pressure 142/91 H Blood Pressure [Right Arm] 142/91 H Blood Pressure Mean [Right Arm] 108 Blood Pressure Source [Right Arm] Automatic Cuff Blood Pressure Position [Right Arm] Sitting 02 Sat by Pulse Oximetry 96 Oxygen Delivery Method Room Air Orders (Tests/Meds): ED MEDICATIONS Discontinued Medications Generic Name Dose Route Start Last Admin Trade Name Freq PRN Reason Stop Dose Admin Tetanus/Reduced Diphtheria/Acell Pertussis 0.5 ml 10/21/19 14:20 10/21/19 14:25 Adacel Tdap 0.5ml Syringe IM 10/21/19 14:21 0.5 ml .ONCE ONE Administration - Radiology Data #1 Image(s): Foot/Toes Image Reviewed: Yes I have reviewed radiologist's interpretation Prominent calcaneal spurs otherwise unremarkable left foot - Reevaluation(s) Time: 14:25 Reevaluation #1: Patient states that she has taken Augmentin before without complications or reactions [facility] [place] - General Stated complaint: AO [id number] splinter left foot, home Time Seen by Provider: 10/21/19 13:34 Mode of Arrival: Ambulatory Source of Information: Patient Limitations: No Limitations Description of Symptoms (Recalled from Triage Doc. by RN): PATIENT STATES SHE WAS ON HER DECK TODAY WITH HER GRANDSON AND GOT A SPLINTER IN HER LEFT HEEL HEENT Symptoms (Recalled from RN notes): No Resp Symptoms (Recalled from RN notes): No Skin Symptoms (Recalled from RN notes): Yes MS Symptoms (Recalled from RN notes): No Functional Status (Recalled from RN notes): WNL - History of Present Illness Provider Complaint: Patient states that she was on her deck at home around 11am when she felt something sharp in the bottom of her left heel States that she looked and it was a large splinter States that she immediately come to hospital to the [facility] but it wasnt open yet so she went home and tried to get it out and couldnt so she came back after [facility] opened to see if we could get it out - Related Data Home Medications Medication Instructions Recorded Confirmed Levothyroxine Sodium 100 mcg PO DAILY 10/13/19 [Levothyroxine 100mcg (0.1MG) Tab] Metformin HCl [Metformin 1000mg 500 mg PO DAILY 10/13/19 Tablets] Rivaroxaban [Xarelto 20mg Tablet*] 20 mg PO DAILY 10/13/19 Previous Rx's Medication Instructions Recorded Amoxicillin/Potassium Clav 1 tab PO BID 5 Days #10 tab 10/21/19 [Augmentin 500mg tab] Allergies Allergy/AdvReac Type Severity Reaction Status Date / Time Sulfa (Sulfonamide Allergy Intermediate Hives Verified 07/08/18 12:51 Antibiotics) ciprofloxacin Allergy Unknown Verified 07/08/18 12:51 allergy reaction - Worker's Comp Is this a Worker's Comp case?: No H History - Hepatitis A Screen Drug use history?: No High risk sexual behaviors?: No History of sexually transmitted infection?: No Currently employed?: No Childcare worker?: N
[2019-10-21 14:35] VITALS: BP 142/91; PULSE 72; RESP 19; TEMP 36.6; O2SAT 96
== END 2019-10-21 14:40 | disposition home or self-care (01) ==
PROVIDERS: Emergency Provider Nurse Practitioner; PCP Internal Medicine Adolescent Medicine
DX: S90.852A Superficial foreign body, left foot, initial encounter (principal); W45.8XXA Other foreign body or object entering through skin, initial encounter; Y92.018 Other place in single-family (private) house as the place of occurrence of the external cause; E11.9 Type 2 diabetes mellitus without complications; Z79.84 Long term (current) use of oral hypoglycemic drugs; Z87.891 Personal history of nicotine dependence; I10 Essential (primary) hypertension; E03.9 Hypothyroidism, unspecified; Z86.718 Personal history of other venous thrombosis and embolism; Z79.01 Long term (current) use of anticoagulants; Z23 Encounter for immunization
CPT/HCPCS: 10120; 73630; 90471; 90715; 99202

== ENCOUNTER 2020-01-14 09:00 | Outpatient (RCR) | payer BC, SELFPAY ==
--- NOTE | 2019-12-29 10:05 | HMH.PTOPEV ---
PT Outpatient Evaluation Rehab PT Outpatient Evaluation Start: 12/29/19 09:54 Freq: Status: Active Protocol: Document 12/29/19 09:54 FREDA (Rec: 12/29/19 10:05 FREDA [id number]) Electronically Signed By Shubham Hercules, PT 12/29/19 09:54 Outpatient Therapy Subjective History Subjective History Pt reports acute onset L sided LBP on 12/20/19 after 'bending over'. Pt reports pain progressed w/LLE radicular s/s to L knee area. Pt reports radicular s/s have improved since steroid injection, but ' it's still definitely there in my back.' Pt reports h/o chronic LBP, 'last episode was on the right'. Chief Complaint Pain,Stiff,Paresthesia Symptom Type Ache,Sharp,Dull Symptoms Relieved By Rest/Positioning,Ice, Prescription Meds Symptoms Aggravated By Standing,Bending/Stooping, Physical Activity,Twisting, Walking,Lifting Prior Functional Limitations None Current Functional Limitations Lifting,Housework,Standing, Walking,Bending/Stooping Symptom Description Constant but Variable Level of pain today (0-10) 2 Pain scale - at its best (0-10) 2 Pain scale - at its worst (0-10) 8 Lumbopelvic Eval Posture Thoracic Spine Posture Standing Position Neutral Lumbar Spine Posture Standing Position Increased Lordosis Assistive device Assistive Devices None / NA Gait Observation General Gait Pattern Observation Antalgic Gait Palapation tenderness bilateral lumbar spinal tenderness Yes: 3/4 paraspinal tenderness Yes: 3/4 buttock tenderness Yes: 3/4 Lumbar/Sacral Palpation Findings Tenderness,Trigger Point, Muscle Guarding Accessory Movement L-spine Vertebrae Accessory Movements Central P/A [place] that Elicit Symptoms L3 bilateral L4 bilateral L5 bilateral Range of Motion Lumbar Spine Active Flexion Range of 0-60 Motion (degrees) Lumbar Spine Active Extension Range of 0-10 Motion (degrees) Left Lumbar Spine Lateral Flexion Active 0-20 Range of Motion (degrees) Right Lumbar Spine Lateral Flexion 0-20 Active Range of Motion (degrees) Lumbar Spine ROM Limitations Pain Manual Muscle Test Bilateral Knee Extension Strength Grade 5 Normal Knee Flexion Strength Grade 5 Normal Hip Flexion Strength Grade
== END 2020-01-14 10:03 | disposition home or self-care (01) ==
LOC: PT 09:00
PROVIDERS: PCP Internal Medicine Adolescent Medicine; Visit Provider Internal Medicine Adolescent Medicine
DX: M54.32 Sciatica, left side (principal)
CPT/HCPCS: 97010; 97014; 97035; 97110; 97140; 97163; G0283

== ENCOUNTER → 2020-07-06 07:51 | Outpatient (CLI) | payer BC, SELFPAY ==
[2020-07-06 08:49] LABS: Basophils # 0.1 K/mm3 (0-0.2); Eosinophils # 0.1 K/mm3 (0.0-0.4); Eosinophils % 1.4 % (0.1-12.0); Hematocrit 45.8 % (37.0-47.0); Hemoglobin 15.1 g/dL (12.2-16.2); Lymphocytes # 3.2 K/mm3 (0.7-4.5); Lymphocytes % 46.4 % (10-50); Mean Platelet Volume 7.8 fl (7.4-10.4); Monocytes # 0.3 K/mm3 (0.1-1.0); Monocytes % 4.8 % (1.7-9.3); Neutrophils # 3.2 K/mm3 (1.8-7.8); Neutrophils % 46.3 % (37.0-80.0); Platelet Count 274 K/mm3 (142-424); Red Blood Count 4.88 M/mm3 (4.20-5.40); Red Cell Distribution Width 13.3 % (11.5-17.5); White Blood Count 6.9 K/mm3 (4.8-10.8)
[2020-07-06 09:23] LABS: Alanine Aminotransferase 29 U/L (12-78); Albumin Level 4.4 g/dl (3.5-5.0); Albumin/Globulin Ratio 1.5 (1.1-1.8); Alkaline Phosphatase 53 U/L (38-126); Anion Gap 11.5 mEq/L (5-15); Aspartate Amino Transferase 31 U/L (14-36); Bilirubin,Total 0.6 mg/dl (0.2-1.3); Blood Urea Nitrogen 17 mg/dl (7-17); Carbon Dioxide 30 mmol/L (22.0-30.0); Chloride 103 mmol/L (98-107); Chol/HDL Ratio 3.9 (1-3.5); Cholesterol 220 mg/dl (140-200); Estimated Glomerular Filt Rate 56 ml/min (>60); GFR (African American) 68 ML/MIN (>60); Glucose 135 mg/dl (74-100); HDL Cholesterol 57 mg/dl (40-60); Potassium 4.5 mmoL/L (3.5-5.1); Sodium 140 mmol/L (136-145); Total Protein,Serum 7.4 g/dl (6.3-8.2); Triglycerides 168 mg/dl (30-150); VLDL Cholesterol 34 mg/dL (0-40)
[2020-07-06 09:34] LABS: Direct LDL Cholesterol 130.83 mg/dL (100-129)
[2020-07-06 09:53] LABS: Thyroid Stimulating Hormone 3.02 uIU/mL (0.465-4.68)
== END ==
PROVIDERS: Visit Provider Internal Medicine Adolescent Medicine
DX: E03.9 Hypothyroidism, unspecified (principal); Z86.711 Personal history of pulmonary embolism
CPT/HCPCS: 36415; 80053; 80061; 84443; 85025

== ENCOUNTER → 2020-07-10 15:49 | Outpatient (CLI) | payer BC, SELFPAY ==
--- NOTE | 2020-07-10 15:52 | MM_ITS ---
PROCEDURE: MM DIG SCREENING MAMM BI W/CAD Digital Breast Tomosynthesis Included CLINICAL INDICATION: SCREENING There is no personal or family history of breast cancer. COMPARISON: MG DMSB DIG MAMM-SCREEN IVY from 04/25/2016 MG SCBI MM Dig screening mamm BI w/CAD from 06/19/2018 MG MM DIG SCREENING MAMM BI W/CAD from 06/22/2019 TECHNIQUE: Standard CC and MLO images and 3D Tomosynthesis was obtained. R2 CAD reviewed. FINDINGS: Mild scattered fibroglandular densities are seen throughout both breasts on a background of primarily fatty breast parenchyma. There has been some interval fatty replacement of the breast parenchyma when compared to previous studies. There are scattered benign-appearing microcalcifications in each breast there is no suspicious lesion and no suspicious microcalcifications. IMPRESSION: Fibrofatty parenchyma with no suspicious lesions seen BI-RAD Category: 2 Benign Finding(s) FOLLOW-UP: 1YR 1 Year Follow-up (A letter has been sent to the patient regarding results of the study.) Dictated by: Dr. Eduardo Joyce MD 07/16/2020 10:25 Dr. Eduardo Joyce MD in [place] 07/16/2020 10:25
== END ==
PROVIDERS: PCP Internal Medicine Adolescent Medicine; Visit Provider Internal Medicine Adolescent Medicine
DX: Z12.31 Encounter for screening mammogram for malignant neoplasm of breast (principal)
CPT/HCPCS: 77063; 77067

== ENCOUNTER → 2020-09-21 11:00 | Outpatient (CLI) | payer BC, SELFPAY ==
--- NOTE | 2020-09-21 11:31 | CA_ITS ---
APPROVED REPORT Right Lower Extremity Venous Study for DVT. Blacksmith Supervisor: Cinthya Thapa RDCS Indications Lower Extremity Pain: Right PAIN BEHIND RT KNEE Risk Factors Prior Phlebitis/DVT Obesity History of Smoking Past History DVT : Right Medications XARELTO Vein Imaging CFV (R): compressive, spontaneous, phasic, augmentation FEM (R): compressive, spontaneous, phasic, augmentation POP (R): compressive, spontaneous, phasic, augmentation PTV (R): Compressible GSV (R): Compressible Peroneals (R):Compressible GAS (R): Compressible Findings Study suggests no evidence DVT of the right lower extremity. Study suggests no evidence of SVT of the right lower extremity. Conclusion Study suggests no evidence DVT of the right lower extremity. Study suggests no evidence of SVT of the right lower extremity. Critical Notification Physician Notified Date: 09/21/2020 Time: 12:04 Physician Name: Sheldon Monsivais's office Electronically signed by : Ethan Carlson MD 09/21/2020 15:55:33
--- NOTE | 2020-09-21 12:58 | XR_ITS ---
PROCEDURE: XR LUMBAR SPINE MIN 4V CLINICAL INDICATION: LOW BACK PAIN,DORSALGIA COMPARISON: No exams were available for comparison FINDINGS: No fracture or dislocation. No lytic or blastic change. There is normal mineralization. There are 6 lumbar segments. There is normal alignment with no evidence of acute fracture or dislocation. There is mild multilevel degenerative disc disease from L1 to the sacrum with some decrease in the disc spaces and small endplate osteophytes. Other findings:Facet arthritic changes are present at L5 and L6. IMPRESSION: Lumbar spondylosis as described above. Dictated by: Ethan Carlson MD 09/21/2020 16:37 Ethan Carlson MD in [place] 09/21/2020 16:37
--- NOTE | 2020-09-21 12:58 | XR_ITS ---
PROCEDURE: XR SACROILIAC JOINT BI MIN 3V CLINICAL INDICATION: LOW BACK PAIN,DORSALGIA COMPARISON: No exams were available for comparison FINDINGS: No fracture or dislocation. No lytic or blastic change. There is normal mineralization. There are minimal degenerative changes of the SI joints with minimal spurring along the inferior aspect and minimal sclerosis. No SI joint effusion or blastic or lytic change apparent. Other findings:None. 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 Dictated by: Ethan Carlson MD 09/21/2020 16:38 Ethan Carlson MD in [place] 09/21/2020 16:38
[2020-09-21 14:38] LABS: Hemoglobin A1C 5.8 % (4.0-6.0)
[2020-09-21 15:10] LABS: Chloride 104 mmol/L (98-107); Potassium 4.2 mmoL/L (3.5-5.1); Sodium 139 mmol/L (136-145)
[2020-09-21 15:13] LABS: Alanine Aminotransferase 28 U/L (12-78); Albumin Level 4.4 g/dl (3.5-5.0); Albumin/Globulin Ratio 1.6 (1.1-1.8); Alkaline Phosphatase 72 U/L (38-126); Anion Gap 12.2 mEq/L (5-15); Aspartate Amino Transferase 32 U/L (14-36); Bilirubin,Total 0.6 mg/dl (0.2-1.3); Blood Urea Nitrogen 13 mg/dl (7-17); Carbon Dioxide 27 mmol/L (22.0-30.0); Cholesterol 193 mg/dl (140-200); Estimated Glomerular Filt Rate 72 ml/min (>60); GFR (African American) 87 ML/MIN (>60); Globulin 2.8 g/dL (1.3-3.2); Total Protein,Serum 7.2 g/dl (6.3-8.2); Triglycerides 138 mg/dl (30-150); VLDL Cholesterol 28 mg/dL (0-40)
[2020-09-21 15:14] LABS: Calcium 10.1 mg/dl (8.4-10.2); Chol/HDL Ratio 3.9 (1-3.5); Glucose 104 mg/dl (74-100); HDL Cholesterol 49 mg/dl (40-60)
[2020-09-21 15:25] LABS: Direct LDL Cholesterol 113.75 mg/dL (100-129)
== END ==
PROVIDERS: PCP Internal Medicine Adolescent Medicine; Visit Provider Internal Medicine Adolescent Medicine
DX: M25.561 Pain in right knee (principal); M54.9 Dorsalgia, unspecified; M54.5 Low back pain; E11.69 Type 2 diabetes mellitus with other specified complication; E78.5 Hyperlipidemia, unspecified
CPT/HCPCS: 36415; 72110; 72202; 80053; 80061; 83036; 93971

== ENCOUNTER → 2021-01-02 13:10 | Outpatient (POV) | payer BC, SELFPAY | PROVIDERS: Visit Provider Dermatology | DX: Z00.00 Encounter for general adult medical examination without abnormal findings (principal) ==

== ENCOUNTER → 2021-07-12 09:42 | Outpatient (CLI) | payer MEDICARE, SELFPAY ==
--- NOTE | 2021-07-12 09:45 | MM_ITS ---
PROCEDURE INFORMATION: Exam: MG Bilateral Screening 3D Mammography Exam date and time: 07/12/2021 9:45 AM Age: 66 years old Clinical indication: Encounter for screening mammogram for malignant neoplasm of breast TECHNIQUE: Imaging protocol: Bilateral Screening tomosynthesis and 2D mammography including computer-aided detection (CAD) when performed. COMPARISON: 1. MG MM DIG SCREENING MAMM BI W/CAD 07/10/2020 3:50 PM 2. MG MM DIG SCREENING MAMM BI W/CAD 06/22/2019 9:59 AM 3. MG SCBI MM Dig screening mamm BI w/CAD 06/19/2018 8:38 AM FINDINGS: MAMMOGRAPHY: Breast composition: There are scattered areas of fibroglandular density. Mass: No suspicious masses. Architectural distortion: No suspicious distortion. Calcifications: No suspicious calcifications. Asymmetric density: None. Skin thickening: None. Axillary adenopathy: None. IMPRESSION: No mammographic evidence of malignancy. Annual screening is recommended unless otherwise clinically indicated. ASSESSMENT: BI-RADS Category 1: Negative
== END ==
PROVIDERS: PCP Internal Medicine Adolescent Medicine; Visit Provider Internal Medicine Adolescent Medicine
DX: Z12.31 Encounter for screening mammogram for malignant neoplasm of breast (principal)
CPT/HCPCS: 77063; 77067

== ENCOUNTER → 2021-08-27 08:54 | Outpatient (CLI) | payer MEDICARE, SELFPAY ==
[2021-08-27 10:03] LABS: Basophils % 0.4 % (0.1-2.0); Eosinophils # 0.1 K/mm3 (0.0-0.4); Eosinophils % 2.6 % (0.1-12.0); Hematocrit 41.2 % (37.0-47.0); Lymphocytes # 2.2 K/mm3 (0.7-4.5); Lymphocytes % 40.5 % (10-50); Mean Corpuscular HGB Conc 34.1 g/dL (31.8-35.4); Mean Corpuscular Hemoglobin 30.8 pg (27.0-31.2); Mean Corpuscular Volume 90.5 fl (81-99); Mean Platelet Volume 7.6 fl (7.4-10.4); Monocytes # 0.3 K/mm3 (0.1-1.0); Neutrophils # 2.8 K/mm3 (1.8-7.8); Neutrophils % 51.4 % (37.0-80.0); Platelet Count 228 K/mm3 (142-424); Red Blood Count 4.55 M/mm3 (4.20-5.40); Red Cell Distribution Width 12.7 % (11.5-17.5); White Blood Count 5.4 K/mm3 (4.8-10.8)
[2021-08-27 10:11] LABS: Hemoglobin A1C 6.3 % (4.0-6.0)
[2021-08-27 10:28] LABS: Alanine Aminotransferase 32 U/L (12-78); Albumin Level 3.9 g/dl (3.5-5.0); Albumin/Globulin Ratio 1.6 (1.1-1.8); Alkaline Phosphatase 53 U/L (38-126); Aspartate Amino Transferase 30 U/L (14-36); Bilirubin,Total 0.6 mg/dl (0.2-1.3); Blood Urea Nitrogen 16 mg/dl (7-17); Calcium 9.2 mg/dl (8.4-10.2); Carbon Dioxide 26 mmol/L (22.0-30.0); Chloride 106 mmol/L (98-107); Chol/HDL Ratio 4.6 (1-3.5); Cholesterol 173 mg/dl (140-200); Estimated Glomerular Filt Rate 72 ml/min (>60); GFR (African American) 87 ML/MIN (>60); Globulin 2.4 g/dL (1.3-3.2); Glucose 201 mg/dl (74-100); HDL Cholesterol 38 mg/dl (40-60); Sodium 139 mmol/L (136-145); Total Protein,Serum 6.3 g/dl (6.3-8.2); Triglycerides 215 mg/dl (30-150); VLDL Cholesterol 43 mg/dL (0-40)
[2021-08-27 10:39] LABS: Direct LDL Cholesterol 93.38 mg/dL (100-129)
[2021-08-27 10:58] LABS: Thyroid Stimulating Hormone 2.86 uIU/mL (0.465-4.68)
== END ==
PROVIDERS: Visit Provider Internal Medicine Adolescent Medicine
DX: E03.9 Hypothyroidism, unspecified (principal); E78.5 Hyperlipidemia, unspecified; E11.69 Type 2 diabetes mellitus with other specified complication; Z79.84 Long term (current) use of oral hypoglycemic drugs
CPT/HCPCS: 36415; 80053; 80061; 83036; 84443; 85025

== ENCOUNTER → 2021-11-13 12:25 | Outpatient (CLI) | payer MEDICARE, SELFPAY ==
--- NOTE | 2021-11-13 12:33 | XR_ITS ---
FINAL REPORT CLINICAL HISTORY: lt shoulder pain,,, 13 years ago pt had rotator cuff surgery FINDINGS: LEFT SHOULDER Four views were obtained. There is no acute fracture or dislocation. There are moderate hypertrophic changes of the AC joint. No soft tissue abnormality is identified. IMPRESSION: Moderate hypertrophic changes of the AC joint. Reviewed, Interpreted and Dictated by Robin Cai MD Transcribed by Johanna Angeles Authenticated and [facility]
== END ==
PROVIDERS: PCP Internal Medicine Adolescent Medicine; Visit Provider Orthopaedic Surgery
DX: M25.512 Pain in left shoulder (principal)
CPT/HCPCS: 73030

== ENCOUNTER 2021-11-14 22:07 | Emergency (ER) | payer MEDICARE, SELFPAY ==
[2021-11-14 22:15] VITALS: BP 0/0; PULSE 0; RESP 0; TEMP -17.7; TEMP 0; O2SAT 0
== END 2021-11-14 22:17 | disposition left against medical advice (07) ==
PROVIDERS: Emergency Provider Emergency Medicine; PCP Internal Medicine Adolescent Medicine
DX: Z53.21 Procedure and treatment not carried out due to patient leaving prior to being seen by health care provider (principal)

== ENCOUNTER → 2021-11-20 07:52 | Outpatient (CLI) | payer MEDICARE, SELFPAY ==
--- NOTE | 2021-11-20 07:53 | MR_ITS ---
FINAL REPORT CLINICAL HISTORY: shoulder pain. LIMITED ROM X4-5MONHTS. NO INJURY OR TRAUMA. WEAKNESS IN ARM. HISTORY ROTATOR CUFF SURGERY 2008 FINDINGS: Multiplanar MR imaging of the left shoulder was performed without contrast. There are postoperative changes in the humeral head. There is a defect at the posterior footprint of the supraspinatus tendon, may represent postoperative change versus a tear. There is a partial thickness articular surface tear of the infraspinatus tendon involving greater than 50%. There is moderate AC joint arthrosis. A moderate amount of fluid is seen in the subacromial/subdeltoid bursa. There is a presumed subchondral cyst in the posterior humeral head. The glenoid labrum is intact. The long head of the biceps tendon is intact. Moderate glenohumeral joint effusion is seen. There is no evidence of fracture or dislocation. The musculature is intact. There is no evidence of soft tissue mass. IMPRESSION: Postoperative change versus tear of the supraspinatus tendon. Partial-thickness articular surface tear of the infraspinatus tendon. Reviewed, Interpreted and Dictated by Juan Zamora III, MD Transcribed by Johanna Angeles Authenticated and [facility]
== END ==
PROVIDERS: PCP Internal Medicine Adolescent Medicine; Visit Provider Orthopaedic Surgery
DX: G89.29 Other chronic pain (principal); M25.512 Pain in left shoulder
CPT/HCPCS: 73221

== ENCOUNTER 2022-06-25 09:33 | Emergency (ER) | payer MEDICARE, SELFPAY ==
--- NOTE | 2022-06-25 09:33 | ECG_ITS ---
APPROVED REPORT Exam: Resting ECG HR:66 bpm ECG Measurements Heart Rate 66 AXES NC 166 P 69 QRSd 86 QRS 55 QT 391 T 43 QTc 405 Conclusion SINUS RHYTHM LOW QRS VOLTAGE IN PRECORDIAL LEADS [QRS DEFLECTION < 1.0 mV IN CHEST LEADS] BORDERLINE ECG UNCONFIRMED REPORT Electronically signed by : Robert Monsivais MD 06/25/2022 20:02:39
[2022-06-25 09:42] VITALS: BP 128/71; PULSE 67; RESP 16; TEMP 36.5; O2SAT 96; BMI 44.2
--- NOTE | 2022-06-25 09:44 | XR_ITS ---
FINAL REPORT CLINICAL HISTORY: chest pain COMPARISON: 07/08/2018 FINDINGS: SINGLE-VIEW CHEST The heart size is normal. The mediastinum is normal. The lungs are clear. There is no pneumothorax. IMPRESSION: No acute cardiopulmonary process. Reviewed, Interpreted and Dictated by Juan aZmora III, MD Transcribed by Johanna Angeles Authenticated and [facility]
[2022-06-25 09:52] LABS: Basophils # 0.1 K/mm3 (0-0.2); Basophils % 1.2 % (0.1-2.0); Eosinophils # 0.2 K/mm3 (0.0-0.4); Eosinophils % 3.3 % (0.1-12.0); Hematocrit 42.7 % (37.0-47.0); Hemoglobin 14.2 g/dL (12.2-16.2); Lymphocytes # 2.2 K/mm3 (0.7-4.5); Lymphocytes % 33.6 % (10-50); Mean Corpuscular HGB Conc 33.2 g/dL (31.8-35.4); Mean Corpuscular Hemoglobin 30.6 pg (27.0-31.2); Mean Corpuscular Volume 92.4 fl (81-99); Mean Platelet Volume 7.8 fl (7.4-10.4); Monocytes # 0.3 K/mm3 (0.1-1.0); Monocytes % 4.8 % (1.7-9.3); Neutrophils # 3.7 K/mm3 (1.8-7.8); Neutrophils % 57.1 % (37.0-80.0); Platelet Count 254 K/mm3 (142-424); Red Blood Count 4.62 M/mm3 (4.20-5.40); Red Cell Distribution Width 13.1 % (11.5-17.5); White Blood Count 6.5 K/mm3 (4.8-10.8)
[2022-06-25 09:59] LABS: Anion Gap 4.2 mEq/L (5-15); Blood Urea Nitrogen 12 mg/dl (7-17); Carbon Dioxide 27 mmol/L (22.0-30.0); Chloride 109 mmol/L (98-107); Creatinine Clearance Estimated 46 mL/min (50-200); Estimated Glomerular Filt Rate 72 ml/min (>60); GFR (African American) 87 ML/MIN (>60); Glucose 135 mg/dl (74-100); Potassium 4.2 mmoL/L (3.5-5.1); Sodium 136 mmol/L (136-145)
[2022-06-25 10:01] VITALS: BP 149/74; PULSE 62; RESP 18; O2SAT 96
--- NOTE | 2022-06-25 10:01 | PC.NURSE ---
rad at BS for portable xray
[2022-06-25 10:15] LABS: Troponin I < 0.01 ng/ml (0.00-0.034)
--- NOTE | 2022-06-25 10:19 | HMH.EDGENADL ---
Discharge Plan Disposition Patient Disposition: Home, Self-Care Condition: Good Chief Complaint: Chest Pain Prescriptions Prescriptions: No Action levothyroxine 100 MCG tablet 100 mcg PO DAILY metformin 1,000 MG tablet 500 mg PO DAILY rivaroxaban 20 MG tablet 20 mg PO DAILY Referrals Follow up/Referrals: Robert Monsivais MD [Primary Care Provider] - See instructions Arian Alvarado MD [Staff Physician] - See instructions (OP cards workup for stable angina ruleout) Activity Restrictions/Add. Instructions Additional Instructions/Restrictions: Follow-up with cardiology, they will call you or you can call them to schedule an appointment the worsening you are scheduled for further cardiac work-up. If you have any other concerns, return to the ER for further evaluation. Clinical Impressions Clinical Impression: Chest pain Qualifiers: Chest pain type: unspecified Qualified Code(s): R07.9 - Chest pain, unspecified Discharge ED Provider: Fabricio Woods General Adult HPI General Chief complaint: Chest Pain Stated complaint: chest pain Time Seen by Provider: 06/25/22 09:40 Mode of Arrival: Ambulatory Source of Information: Patient Limitations: No Limitations Description of Symptoms (Recalled from ER Triage Doc. by RN): pt comes in with midsternal chest pain that began this am. pt reports that she thought it may be gerd so she took otc medication, but had no relief. symptoms do not radiate but do come and go. History of Present Illness HPI narrative: This is a 67-year-old female with history of DVT/PE on Xarelto, prediabetes, chronic back pain who is presenting with chest pain/epigastric pain. Patient states that around 6 AM on 06/25, she began having a burning epigastric pain. Intermittent, mild to moderate in intensity, also intermittently radiates to her back. She states it felt like indigestion, so she took Zantac without relief because she is also having nausea. Discomfort is made better by sitting upright, made worse by lying flat, but patient does deny PND or orthopnea. Also denies fevers, chills, diaphoresis. No neurologic deficits. Related Data Home Medications Medication Instructions Recorded Confirmed levothyroxine 100 mcg tablet 100 mcg PO DAILY hypothyroidism 10/13/19 11/13/21 metformin 1,000 mg tablet 500 mg PO DAILY Diabetes 10/13/19 11/13/21 rivaroxaban 20 mg tablet 20 mg PO DAILY anticoagulation 10/13/19 11/13/21 Allergies Allergy/AdvReac Type Severity Reaction Status Date / Time Sulfa (Sulfonamide Allergy Intermediate Hives Verified 06/25/22 10:34 Antibiotics) ciprofloxacin Allergy Unknown Verified 06/25/22 10:34 allergy reaction [facility] Disclaimer: The information contained in this section may have been updated after the patient was seen, as this information can be updated by other users. Social History Smoking Status: Former smoker second hand exposure: Yes alcohol intake: never current occupational status: other Travel in the last 8 weeks: None household members: other housing: house caffeine: No ROS Obtained: Yes All systems reviewed & no additional complaints except as documented Physical Exam General General appearance: alert and in no apparent distress Head Head exam: atraumatic, normocephalic and normal inspection Eye Eye exam: Present normal appearance, PERRL and EOMI ENT ENT exam: Present normal exam, normal oropharynx, mucous membranes moist, TM's normal bilaterally and normal external ear exam Neck Neck exam: Present normal inspection, full ROM and trachea midline; Absent meningismus or lymphadenopathy Chest Chest inspection: Present normal inspection and symmetric chest wall rise; Absent tenderness Respiratory Respiratory exam: Present normal lung sounds bilaterally; Absent respiratory distress Cardiovascular Cardiovascular exam: Present regular rate and normal
[2022-06-25 10:31] VITALS: BP 120/59; PULSE 58; RESP 18; O2SAT 96
[2022-06-25 10:32] LABS: Alanine Aminotransferase 23 U/L (12-78); Aspartate Amino Transferase 36 U/L (14-36); Bilirubin,Unconjugated 0.5 mg/dL (0.0-1.1)
[2022-06-25 10:33] LABS: Alkaline Phosphatase 45 U/L (38-126); Bilirubin,Direct 0.4 mg/dl (0.0-0.4); Bilirubin,Indirect 0.5 mg/dL (0.0-0.9); Bilirubin,Total 0.9 mg/dl (0.2-1.3); Lipase 93 U/L (23-300)
[2022-06-25 11:01] VITALS: BP 109/61; PULSE 56; RESP 16; O2SAT 97
[2022-06-25 13:44] LABS: Troponin I < 0.01 ng/ml (0.00-0.034)
[2022-06-25 14:30] VITALS: BP 119/60; PULSE 73; RESP 18; TEMP 36.6; O2SAT 99
== END 2022-06-25 14:35 | disposition home or self-care (01) ==
PROVIDERS: Emergency Provider Emergency Medicine; PCP Internal Medicine Adolescent Medicine
DX: R07.89 Other chest pain (principal); R10.13 Epigastric pain; M54.9 Dorsalgia, unspecified; G89.29 Other chronic pain; R73.03 Prediabetes; Z79.01 Long term (current) use of anticoagulants; Z86.711 Personal history of pulmonary embolism; Z86.718 Personal history of other venous thrombosis and embolism; Z87.891 Personal history of nicotine dependence
CPT/HCPCS: 71045; 80048; 80076; 83690; 84484; 85025; 93005; 96374; 99285; J2405

== ENCOUNTER → 2022-07-16 15:44 | Outpatient (CLI) | payer MEDICARE, SELFPAY ==
--- NOTE | 2022-07-16 15:47 | MM_ITS ---
PROCEDURE INFORMATION: Exam: MG Bilateral Screening 3D Mammography Exam date and time: 07/16/2022 3:48 PM Age: 67 years old Clinical indication: Screening examination TECHNIQUE: Imaging protocol: Bilateral Screening tomosynthesis and 2D mammography including computer-aided detection (CAD) when performed. COMPARISON: 1. MG MM DIG SCREENING MAMM BI W/CAD 07/12/2021 9:40 AM 2. MG MM DIG SCREENING MAMM BI W/CAD 07/10/2020 3:50 PM FINDINGS: MAMMOGRAPHY: Breast composition: There are scattered areas of fibroglandular density. Mass: None. Architectural distortion: None. Calcifications: No suspicious calcifications. Asymmetric density: None. Skin thickening: None. Axillary adenopathy: None. IMPRESSION: No mammographic evidence of malignancy. Annual screening is recommended unless otherwise clinically indicated. ASSESSMENT: BI-RADS Category 1: Negative
== END ==
PROVIDERS: PCP Internal Medicine Adolescent Medicine; Visit Provider Internal Medicine Adolescent Medicine
DX: Z12.31 Encounter for screening mammogram for malignant neoplasm of breast (principal)
CPT/HCPCS: 77063; 77067

== ENCOUNTER 2022-12-19 08:22 | Day surgery (SDC) | payer MEDICARE, SELFPAY ==
[2022-12-03 13:57] VITALS: BMI 44.2
[2022-12-19] VITALS (7 sets, daily range): BP systolic 103–148; BP diastolic 51–84; PULSE 52–62; RESP 14–18; TEMP 36.5; O2SAT 93–97
[2022-12-19 09:17] LABS: POC Glucose,Bedside 127 (70-110)
--- NOTE | 2022-12-19 09:19 | EXP.ANES.CKL ---
[facility] Disclaimer: The information contained in this section may have been updated after the patient was seen, as this information can be updated by other users. Medical History Deep vein thrombosis (DVT) Diabetes mellitus, type 2 Hx pulmonary embolism Hypothyroid Surgical History History of bilateral tubal ligation History of tonsillectomy Hx of rotator cuff surgery Family History Other Family history of stroke Social History Smoking Status: Former smoker second hand exposure: Yes alcohol intake: never substance use type: denies use current occupational status: retired Travel in the last 8 weeks: None household members: other housing: house lives independently: No marital status: education level: college service: No senior care: No caffeine: Yes do you feel safe at home: Yes victim of physical abuse: No victim of emotional abuse: No victim of sexual abuse: No would you like helpful sources: No [facility] Anesthesia Checklist Patient Identification Patient Identification: Arm Band Structural Data Admitted From: Home Planned Operative Procedure/s: Colonoscopy Consent for Planned Operative Procedure(s) Verified: Yes Verified Documents: Surgical Consent and History and Physical NPO Status Verified Time NPO: 00:00 Additional verifications Anesthesia Reactions: No Airway Assessment Mallampati Score:: Class III C-Spine Mobility Assessed: Yes TMJ Mobility Assessed: Yes Dentition: Good Dentition Neurological Assessment Level of Consciousness: Awake and Alert Anesthesia Plan Anesthesia Risk discussed: Yes Anesthesia Plan: Verified ASA Class: III Anesthesia Type: MAC
--- NOTE | 2022-12-19 09:50 | HMH.SCOPE ---
Procedure: Date: 12/19/22 Patient Date of :: 1955 Procedure Performed:: Diagnostic colonoscopy Indications:: +Cologuard Performing Provider:: Sangeeta Patton MD Referring Provider:: Robert Monsivais Sedation:: Propofol Procedure:: After placing the patient in the left lateral decubitus position, the colonoscopy was gently inserted into the rectum and under direct visualization advanced to the cecum which was identified by transillumination in the right lower quadrant, identification of the ileocecal valve, appendiceal orifice, and cecal strap. Color, texture, mucosa, and anatomy of the colon were carefully examined with the scope. Findings:: Anal canal: normal Rectum: normal Sigmoid colon: normal without polyps or inflammatory changes Descending colon: normal without polyps or inflammatory changes Splenic flexure: normal Transverse colon: normal without polyps or inflammatory changes Hepatic flexure: normal Ascending colon: normal without polyps or inflammatory changes Cecum: normal Terminal ileum: not visualized Impression: Normal colonoscopy Recommendations:: Follow up examination in about TEN years or so, sooner if clinically indicated. Complications:: None Estimated blood obtained (mL): 0 Colonoscopy Component Colonoscopy Component Was a colonoscopy performed during today's procedure?: Yes Recommended follow up colonoscopy of at least 10 years?: Yes
== END 2022-12-19 10:40 | disposition home or self-care (01) ==
PROVIDERS: PCP Internal Medicine Adolescent Medicine; Visit Provider Internal Medicine Gastroenterology
DX: R19.5 Other fecal abnormalities (principal); E11.9 Type 2 diabetes mellitus without complications
CPT/HCPCS: 45378; 82962

== ENCOUNTER → 2023-01-27 12:54 | Outpatient (CLI) | payer MEDICARE, SELFPAY ==
--- NOTE | 2023-01-27 13:03 | CT_ITS ---
FINAL REPORT TECHNIQUE: Thin section axial images were obtained through the lungs using a low-dose technique per lung cancer screening protocol. Reconstruction images were obtained using the axial data. Exam was performed using dose reduction technique. CLINICAL HISTORY: NICOTINE USE former smoker quit 5 years ago. smoked 1 ppd x 40 years COMPARISON: 09/21/2019 FINDINGS: CTDLvol 2.9 DLP: 102.12 Former smoker 40 pack year history Lungs: No acute pulmonary abnormality. No suspicious nodules. There is evidence of prior granulomatous disease. Lymph nodes: No thoracic lymphadenopathy. Mediastinum: Heart size is normal. Pleura/pericardium: No pleural or pericardial effusion. Other: No acute abnormality in the upper abdomen. IMPRESSION: No suspicious pulmonary nodule or mass. Lung RADS: 1 Recommendation: 12-month follow-up LDCT Reviewed, Interpreted and Dictated by Migdalia Abarca MD Transcribed by Nicole Benson Authenticated and [facility]
--- NOTE | 2023-01-27 13:17 | MR_ITS ---
FINAL REPORT TECHNIQUE: Multiplanar and multisequence imaging of the lumbar spine was obtained without contrast. CLINICAL HISTORY: LEFT SIDED SCIATICA.LOW BACK PAIN. BILATERAL LEG PAIN. NUMBNESS AND TINGLING IN RIGHT THIGH. NO INJURY OR TRAUMA COMPARISON: 02/20/2018 FINDINGS: There is normal alignment of the lumbar vertebral bodies. Vertebral body height is preserved. The spinal cord ends at the level of L1. There is normal signal intensity within the substance of the distal spinal cord. No acute bone marrow edema or pathologic marrow replacement. No acute paraspinal abnormality is identified. L1-2: An annular bulge is present without evidence of significant canal or neural foraminal narrowing. L2-3: An annular bulge is present with degenerative endplate change and facet osteoarthropathy. There is mild canal and mild bilateral neural foraminal narrowing present. L3-4: An annular bulge is present with degenerative endplate change and facet osteoarthropathy. There is mild canal stenosis as well as moderate bilateral neural foraminal narrowing. L4-5: An annular bulge is present with degenerative endplate change and facet osteoarthropathy. There is mild to moderate canal stenosis with moderate right and severe left neural foraminal narrowing. L5-S1: An annular bulge is present with degenerative endplate change and facet osteoarthropathy. There is mild to moderate right neural foraminal narrowing. When compared to the prior MRI of 2018 the degenerative change at most levels of the spine has progressed. IMPRESSION: Multilevel lumbar degenerative change identified, most severe at the L3-4 and L4-5 levels. The overall degenerative change has progressed since the prior MRI of 2018. Reviewed, Interpreted and Dictated by Migdalia Abarca MD Transcribed by Nicole Benson Authenticated and [facility]
== END ==
PROVIDERS: PCP Internal Medicine Adolescent Medicine; Visit Provider Internal Medicine Adolescent Medicine
DX: Z87.891 Personal history of nicotine dependence (principal); M54.32 Sciatica, left side; Z12.2 Encounter for screening for malignant neoplasm of respiratory organs
CPT/HCPCS: 71271; 72148; 76376

== ENCOUNTER 2023-04-03 13:00 | Outpatient (RCR) | payer MEDICARE, SELFPAY | END 2023-04-03 14:00 | disposition home or self-care (01) | LOC: PT 13:00 | PROVIDERS: PCP Internal Medicine Adolescent Medicine; Visit Provider Orthopaedic Surgery | DX: M54.50 Low back pain, unspecified (principal); M46.96 Unspecified inflammatory spondylopathy, lumbar region | CPT/HCPCS: 97010; 97014; 97035; 97110; 97163; 97164; 97530; G0283 ==

== ENCOUNTER 2023-07-24 13:18 | Outpatient (CLI) | payer MEDICARE, SELFPAY ==
--- NOTE | 2023-07-24 13:26 | MM_ITS ---
PROCEDURE INFORMATION: Exam: MG Bilateral Screening 3D Mammography Exam date and time: 07/24/2023 1:17 PM Age: 68 years old Clinical indication: Screening examination TECHNIQUE: Imaging protocol: Bilateral Screening tomosynthesis and 2D mammography including computer-aided detection (CAD) when performed. COMPARISON: 1. MG MM DIG SCREENING MAMM BI W/CAD 07/16/2022 3:48 PM 2. MG MM DIG SCREENING MAMM BI W/CAD 07/12/2021 9:40 AM FINDINGS: MAMMOGRAPHY: Breast composition: There are scattered areas of fibroglandular density. Mass: None. Architectural distortion: None. Calcifications: No suspicious calcifications. Asymmetric density: None. Skin thickening: None. Axillary adenopathy: None. IMPRESSION: No mammographic evidence of malignancy. Annual screening is recommended unless otherwise clinically indicated. The ASSESSMENT: BI-RADS Category 1: Negative
== END 2023-07-24 23:59 ==
LOC: RAD 13:19
PROVIDERS: PCP Internal Medicine Adolescent Medicine; Visit Provider Internal Medicine Adolescent Medicine
DX: Z12.31 Encounter for screening mammogram for malignant neoplasm of breast (principal)
CPT/HCPCS: 77063; 77067

== ENCOUNTER 2023-10-07 11:00 | Outpatient (CLI) | payer MEDICARE, SELFPAY ==
--- NOTE | 2023-10-07 11:05 | ECG_ITS ---
APPROVED REPORT Exam: Resting ECG HR:62 bpm ECG Measurements Heart Rate 62 AXES NE 100 P -67 QRSd 88 QRS 41 QT 383 T 36 QTc 387 Conclusion SINUS RHYTHM NORMAL RHYTHM ECG UNCONFIRMED REPORT Electronically signed by : Robert Monsivais MD 10/07/2023 17:28:12
== END 2023-10-07 23:59 | disposition home or self-care (01) ==
PROVIDERS: PCP Internal Medicine Adolescent Medicine; Visit Provider Anesthesiology
DX: Z01.818 Encounter for other preprocedural examination (principal); M48.062 Spinal stenosis, lumbar region with neurogenic claudication
CPT/HCPCS: 93005

== ENCOUNTER 2024-04-20 10:47 | Outpatient (RCR) | payer MEDICARE, SELFPAY ==
--- NOTE | 2024-04-20 11:41 | HMH.PTOPEV ---
PT Outpatient Evaluation Rehab PT Outpatient Evaluation Start: 04/20/24 11:27 Freq: Status: Active Protocol: Document 04/20/24 11:27 LYDIA (Rec: 04/20/24 11:40 LYDIA [id number]) E-signed By Yang Vega, PT Outpatient Therapy Subjective History Subjective History The patient is a 68 yof who presents to [facility] outpatient Physical Therapy with complaints of R Sided low back pain into her buttock and R hip. She reports that she had a L4-L5 Laminectomy in October and has been dealing with nerve pain into her R thigh since then, but the current pain is different. She reports that it is the worst when she is trying to sleep at night, particularly when trying to lay on her R side. She also reports pain with stairs and with walking longer distances. She reports that she does not sleep well at night. The patient reports that the pain is fairly constant. She reports a PMH of a DVT ~ 6 yrs ago. New diagnosis of cancer in past 12 No months? Chief Complaint Pain,Weakness Symptom Type Ache,Dull Symptoms Relieved By OTC Meds Symptoms Aggravated By Sitting,Standing,Bending/ Stooping,Walking Prior Functional Limitations None Current Functional Limitations Lifting,Housework,Sleeping, Sitting,Squatting,Walking, Stairs Symptom Description Constant and Continuous Level of pain today (0-10) 4 Pain scale - at its best (0-10) 4 Pain scale - at its worst (0-10) 10 Lumbopelvic Eval Special Tests Hip Calvin (DEVAN) Test Positive Right Hip Piriformis Test Positive Right Hip/Knee Eval Gait Observation General Gait Pattern Observation Antalgic Gait Palpation Tenderness right Knee Palpation Overall Comment HIP: TTP 3/4 to trochanter, glute med Hip Palpation Findings Tenderness MMT Hip Flexion Strength Grade 3+ Fair+ Hip Abduction Strength Grade 2+ Poor+ Hip Extension Strength Grade 2+ Poor+ Knee Extension Strength Grade 4- Good- Knee Flexion Strength Grade 4- Good- Oswestry Index Section 1 Pain Intensity The pain is moderate and does not vary much Section 2 Personal Care (Washing,Dresing) change my way of washing or dressing in order to avoid pain Section 3 Lifting I can only lift very light weights at most Section 4 Walking I cannot walk at all without increasing pain Section 5 Sitting Pain prevents me from sitting for more than 1/2 hour Section 6 Standing I cannot stand more than 1/2 hour without increasing pain Section 7 Sleeping Because of my pain, my normal night's sleep is less than 4 hours Section 8 Social Life Pain has no significant effect on my social life apart from limiting Section 9 Traveling I get extra pain while traveling, but it does not compel me to seek al Section 10 Changing Degreee of Pain My pain is neither getting better or worse Score and Risk Level Oswestry Sc 29 Oswestry Risk Level Severe Disability Miscellaneous Dx PT Eval Objective Objective 5xSTS: 25s TUs Tandem Stance R: 12s Tandem Stance L: 16s Outpatient Therapy Assessment Impairments Problems/Impairmments Palpation Tenderness,Impaired Strength,Impaired Endurance, Impaired Walking,Impaired Sitting,Impaired Household Care,Impaired Stair Climbing, Impaired Balance,Impaired TUG Time,Subjective C/O Pain Prognosis Rehab Potential Good Comment The patient presents with pain that is isolated into the R buttock and hip. The patient's comparable sign was reproduced with DEVAN positioning of the R hip, manual muscle test of gluteus medius (R) and palpation of the greater trochanter/glute medius. The patient's signs and symptoms are consistent with gluteal tendinopathy. Skilled PT is indicated for this pt to address her current impairments, as well as prevent further injuries and to return to her PLOF. Clinical Impression Consistent with Diagnosis Yes Short Term Goals Number of Weeks 4 Decreased Palpation Tenderness Yes: 1/4 to R hip Increase Strength Yes: 4/5 to R hip and knee Increase Endurance Yes: 5XSTS 19s Increase Ability to Sit Yes: 30 minutes without increasing pain Improve Balance Yes: Tandem Stance 30 each Improve Oswestry Score Yes: Moderate Disability Decrease Subjective C/O Pain Yes: 610 at worst Patient to be Ind w/ HEP Yes Usp Goals Number of Weeks 8 Decreased Palpation Tenderness Yes: 0/4 to R hip Increase Strength Yes: 5/5 to R hip/knee Increase Ability to Sit Yes: 1 hour without increasing pain Improve Ability to Climb Stairs Yes: Flight of Stairs without increasing pain Improve Oswestry Score Yes: Mild Disability Decrease TUG Time Yes: 12s Decrease Subjective C/O Pain Yes: 310 at worst Patient to be Ind w/ Advanced HEP Yes Outpatient Therapy Plan of Care Treatment Plan May Include Therapeutic Exercise Including Home Yes Exercise Program Manual Therapy Techniques Yes Neuromuscular Re-education Yes Therapeutic Activities to Return to Yes Previous Functional/Work Level Gait Training Yes ADL/Self Care Education Yes Mechanical Traction Yes Dry Needling Yes Thermal Modalities Yes Electrical Stimulation Yes Ultrasound/Phonophoresis Yes Manual Lymphatic Drainage Yes Eval/Re-Eval Yes Frequency Times per week 2 Duration Number of Weeks 8 Addendums This patient is a candidate for social No or vocational rehab? Patient/Guardian verbally acknowledges Yes understanding of treatment program and consents to further treatment? Patient/Guardian verbally acknowledges Yes understanding of diagnosis, prognosis and goals for treatment? Eval Complexity PT Charges 16056 - Moderate Complexity Shoulder/Elbow Eval Shoulder Objective Measurements Elbow Objective Measurements PHYSICIAN CERTIFICATION: I certify the specified therapy services for Lizeth Leyva are required, authorized, and reviewed every 30 days.
== END 2024-04-20 23:59 | disposition home or self-care (01) ==
LOC: PT 10:47
PROVIDERS: Visit Provider Internal Medicine Adolescent Medicine
DX: M54.50 Low back pain, unspecified (principal)
CPT/HCPCS: 97163

== ENCOUNTER 2024-06-02 14:54 | Outpatient (CLI) | payer MEDICARE, SELFPAY ==
--- NOTE | 2024-06-02 15:01 | XR_ITS ---
FINAL REPORT TECHNIQUE: Chest PA & Lateral CLINICAL HISTORY: ACUTE COUGH COMPARISON: 06/25/2022 FINDINGS: 2 views of the chest were performed. The heart size is normal. The mediastinum is within normal limits. There is no acute cardiopulmonary process. There are no pleural effusions. There is no pneumothorax. The bony thorax appears intact. IMPRESSION: No acute cardiopulmonary process. Reviewed, Interpreted and Dictated by Robin Cai MD Transcribed by Angela Davis Authenticated and . [facility]
== END 2024-06-02 23:59 | disposition home or self-care (01) ==
LOC: RAD 14:56
PROVIDERS: PCP Internal Medicine Adolescent Medicine; Visit Provider Physician Assistant
DX: R05.1 Acute cough (principal)
CPT/HCPCS: 71046

== ENCOUNTER 2024-06-03 14:00 | Outpatient (RCR) | payer MEDICARE, SELFPAY ==
--- NOTE | 2024-05-18 14:22 | HMH.RHREAS ---
Rehab Reassessment Rehab OP Re-assessment Start: 05/06/24 10:09 Freq: Status: Active Protocol: Document 05/18/24 14:14 LYDIA (Rec: 05/18/24 14:22 LYDIA [id number]) E-signed By Yang Vega, PT Oswestry Index Section 1 Pain Intensity The pain is moderate and does not vary much Section 2 Personal Care (Washing,Dresing) my way of washing or dressing even though it causes some pain Section 3 Lifting Pain prevents me from lifting weights off the floor Section 4 Walking I have some pain when walking but it does not increase with distance Section 5 Sitting Pain prevents me from sitting for more than 1/2 hour Section 6 Standing I cannot stand more than 1/2 hour without increasing pain Section 7 Sleeping Because of my pain, my normal night's sleep is less than 4 hours Section 8 Social Life My social life is normal but increases the degree of pain Section 9 Traveling I get extra pain while traveling, but it does not compel me to seek al Section 10 Changing Degreee of Pain My pain seems to be getting better, but improvement is slow Score and Risk Level Oswestry Sc 21 Oswestry Risk Level Moderate Disability Rehab Re-assessment Subjective Subjective Pt reports modest improvements thus far. She mostly attributes this to being sick around [place] and only having a few visits so far. The pt reports that she has noticed a lot of improvement going up/down stairs, which she is doing pain free. She reports that she is still having a lot of trouble sleeping, particularly when laying on her R side. She reports that she went back to her neurosurgeon yesterday, and she is receiving an SI injection next Friday. She reports that over the last two weeks, the worst her pain has reached is a 5/10. She reports that it is constantly at a 3/10. Objective Objective Notes TERE: Improved to MOD Disability TTP: 2/4 to R hip (greater trocahnter) MMT: - B hip flexion 4/5 - B knee extension 5/5 - B knee flexion 5/5 - B hip ABD 4/5 TUs 5XSTS: 18s Tandem Stance: 30 B Assessment Progress Assessment Progressing as Expected Assessment Notes Pt has made some progress so far in her rehab process. She has demonstrated improvements in strength, balance and some improvement in pain. However, she continues to present with some decrements in each of these areas. Skilled PT remains indicated for this pt to promote a return to her PLOF and to address her current impairments. Patient goals met ST,3,4,5,6,7,8 LT,[address] LT,2,4,5,7,8 Plan Plan Continue as per initial POC Frequency of Therapy 2/week Duration of therapy 4 weeks Time and Billing Re-Eval Time 11 Re-Eval Billing Units 0 Charge for PT reassessment? No PHYSICIAN CERTIFICATION: I certify the specified therapy services for Lizeth Leyva are required, authorized, and reviewed every 30 days.
== END 2024-06-03 23:59 | disposition home or self-care (01) ==
LOC: PT 14:00
PROVIDERS: Visit Provider Internal Medicine Adolescent Medicine
DX: M54.50 Low back pain, unspecified (principal)
CPT/HCPCS: 97014; 97110; 97530; G0283

== ENCOUNTER 2024-08-11 13:24 | Outpatient (CLI) | payer MEDICARE, SELFPAY ==
--- NOTE | 2024-08-11 13:25 | MM_ITS ---
PROCEDURE INFORMATION: Exam: MG Bilateral Screening 3D Mammography Exam date and time: 08/11/2024 1:26 PM Age: 69 years old Clinical indication: Screening examination TECHNIQUE: Imaging protocol: Bilateral Screening tomosynthesis and 2D mammography including computer-aided detection (CAD) when performed. COMPARISON: 1. MG MM DIG SCREENING MAMM BI W/CAD 07/24/2023 1:17 PM 2. MG MM DIG SCREENING MAMM BI W/CAD 07/16/2022 3:48 PM FINDINGS: MAMMOGRAPHY: Breast composition: There are scattered areas of fibroglandular density. Mass: No suspicious masses. Architectural distortion: None. Calcifications: No suspicious calcifications. Asymmetric density: None. Skin thickening: None. Axillary adenopathy: None. IMPRESSION: No mammographic evidence of malignancy. Annual screening is recommended unless otherwise clinically indicated. ASSESSMENT: BI-RADS Category 1: Negative.
--- NOTE | 2024-08-11 13:25 | CT_ITS ---
FINAL REPORT CLINICAL HISTORY: .screening former smoker quit 6 years ago 1ppd x40 years COMPARISON: 01/27/2023 FINDINGS: CT CHEST LOW DOSE SCREENING HISTORY: Screening exam for lung cancer. DOSE: CTDI vol: 2.90 mGy, DLP: 96.64 mGy*cm TECHNIQUE: Axial CT without IV contrast administration using low dose protocol. This study was performed with techniques to keep radiation doses as low as reasonably achievable, (ALARA). Individualized dose reduction techniques using automated exposure control or adjustment of mA and/or kV according to the patient's size were employed. No acute lung disease is present. No pulmonary lesions are seen suspicious for neoplasm. There is evidence of old calcified granulomatous disease. No pleural or pericardial effusion is seen. No adenopathy or mass lesion is present. IMPRESSION: No evidence of lung cancer LUNG RADS CATEGORY 1 RECOMMENDATION: 12 month LDCT follow up Reviewed, Interpreted and Dictated by Butch Tamayo MD Transcribed by Hailey Breen Authenticated and [facility]
[2024-08-11 14:55] VITALS: PULSE 64; PULSE 68
[2024-08-11] MEDS: ALBUTEROL 0.083% 2.5 MG/3 ML NEB IH (14:55)
--- OUTSIDE RECORDS SUMMARY | 2024-08-12 22:17 | XMS_ITS | Data Portability ---
Author Organization [facility] [place] [facility] Address [address] [place] [address] Care Team Providers Care Line And Frame Poler Name Role Phone LESLIE BREWER Primary Care Provider [phone] Assessment Encounter Date Assessment Date Assessment LastModified by Organization Details LastModified Time 08/13/2021 08/13/2021 66-year-old female presenting for follow-up with regards to back pain. She has a history of chronic back pain with right-sided radicular symptoms. She also has a history of piriformis syndrome on the left. She has done well with injection therapy on in the past. At her last visit she was started on Celebrex to help with generalized aches secondary to osteoarthritis . She returns today noting good improvement symptoms. Patient will follow-up as needed for any additional treatment measures. Not available 08/13/2021 15:48:06 02/18/2022 02/18/2022 66-year-old female presenting for follow-up with regards to back pain. She has a history of chronic back pain with right-sided radicular symptoms. She also has a history of piriformis syndrome on the left. She has done well with injection therapy on in the past. she messaged the clinic requesting repeat epidural steroid injection and recently underwent repeat L4-5 lumbar epidural steroid injection. She returns today noting minimal benefit. On further questioning however she reports entirely left sided pain which is consistent with her piriformis syndrome. We discussed piriformis injection to help with symptoms. Risks and benefits of the procedure were explained to the patient she wishes to proceed. We'll plan to schedule the patient for left piriformis injection at the next available appointment. I will prescribe baclofen in the interim to hopefully help with some of the muscular pain and allow her an improved night's rest. Side effects reviewed with her today including sedation. Patient will follow-up in one month for further evaluation. [email or web address] Not available 02/18/2022 15:05:49 04/01/2022 04/01/2022 66-year-old female presenting for follow-up with regards to back pain. Patient has a history of left posterior buttock discomfort with radiation down the leg. Pain is consistent with piriformis syndrome. At her last visit she underwent left piriformis injection. She returns today noting complete resolution of symptoms. She is quite happy with her symptomatic improvement. She is welcome to follow-up as needed for any additional treatment measures. Not available 04/01/2022 14:44:51 Plan of Treatment Reminders Order Date Submit Date Provider Last Modified By Organization Details Last Modified Time Details Appointments None recorded. Lab None recorded. Referral None recorded. Procedures None recorded. Surgeries None recorded. Imaging None recorded. Medication Orders Celebrex 200 mg capsule [address] [place] [address] Pharmacy, [address] [place] [address], [place], [facility], 15:56:46 Patient TargetsNo targets recorded. Patient Instructions Encounter Date Encounter Id Patient Instructions Last Modified By Organization Details Last Modified Time 08/13/2021 [id number] WRAP-UP Thank you for visiting [facility] at [facility] today. At today's visit the following were addressed: - Refills Thank you for visiting the [facility]. -Because of the high volume of calls we receive and the high demand for our clinical services, please allow for 24 hours for us to respond to patient calls. We are generally unable to discuss patient care advice over the telephone. If you are experiencing a medication side effect or complication, you can call and let us know, but we will typically not make a medication substitution or filter changer the telephone. -Acute exacerbations of pain and flare ups are quite common in chronic pain states and need to be dealt with as part of the termite control servicer management plan. Please make an appointment with us if you wish to discuss a matter in any detail. Should you still need to call, please do so at . For additional information and services provided by our clinic you may visit our Pain Management Clinic website at: [email or web address] Thank you for choosing [facility]. It was a pleasure to see you in clinic today. Please contact us with any questions or concerns at . Not available 08/13/2021 15:45:14 02/18/2022 [id number] WRAP-UP Thank yo u for visiting [facility] at [facility] today. At today's visit the following were addressed: - Margaret vasquez Thank you for visiting the [facility]. -Because of the high volume of calls we receive and the high demand for our clinical services, please allow for 24 hours for us to respond to patient calls. We are generally unable to discuss patient care advice over the telephone. If you are experiencing a medication side effect or complication, you can call and let us know, but we will typically not make a medication substitution or filter changer the telephone. -Acute exacerbations of pain and flare ups are quite common in chronic pain states and need to be dealt with as part of the skilled nursing management plan. Please make an appointment with us if you wish to discuss a matter in any detail. Should you still need to call, please do so at . For additional information and services provided by our clinic you may visit our Pain Management Clinic website at: [email or web address] Thank you for choosing [facility]. It was a pleasure to see you in clinic today. Please contact us with any questions or concerns at . Not available 02/18/2022 15:04:48 04/01/2022 [id number] WRAP-UP Thank you for visiting [facility] at [facility] today. At today's visit the following were addressed: - POLA Thank you for visiting the [facility]. -Because of the high volume of calls we receive and the high demand for our clinical services, please allow for 24 hours for us to respond to patient calls. We are generally unable to discuss patient care advice over the telephone. If you are experiencing a medication side effect or complication, you can call and let us know, but we will typically not make a medication substitution or filter changer the telephone. -Acute exacerbations of pain and flare ups are quite common in chronic pain states and need to be dealt with as part of the skilled nursing management plan. Please make an appointment with us if you wish to discuss a matter in any detail. Should you still need to call, please do so at . For additional information and services provided by our clinic you may visit our Pain Management Clinic website at: [email or web address] Thank you for choosing [facility]. It was a pleasure to see you in clinic today. Please contact us with any questions or concerns at . Not available 04/01/2022 14:44:08 Reason for Referral None Reported. Problems No Known Problems Procedures Surgical History Date Name Laterality Status Provider Name and Address Organization Details Recorded Time 03/14/20 22 Piriformis [place] [address] [place] [address], [phone], [facility] 03/14/2022 09:37:01 01/03/20 22 Injection; Interlaminar Epidural Steroid completed ELISE LEBLANC MD [address] [place] [address], [phone], [facility] 01/02/2022 09:37:33 05/16/19 22 Piriformis Injection completed ELISE LEBLANC MD [address] [place] [address], [phone], [facility] 05/16/2021 12:07:16 03/08/20 21 Injection; Interlaminar Epid[place] [address] [place] [address], [phone], [facility] 03/08/2021 13:16:13 Ears/Nose/Throat Surgery completed [facility] 11/14/2016 14:07:36 District Director Surgery completed [facility] 11/14/2016 14:07:39 Orthopedic Surgery completed [facility] 11/14/2016 14:07:44 Imaging Results None recorded. Procedure Notes None recorded. Medical Equipment None Reported. Allergies Allergen ID Allergen Name Allergen Category Reaction Reaction Severity Criticality Documentation Date Start Date Code Code System Note Provider Name and Address Organization Details Recorded Time 859514 Substance with sulfonami de structure and antibacte rial mechanism of action (substanc e) medicatio n Not available Not available Not available 03/29/20162008 49566 8003 SNOMED Comme nt: Creat ed By: Candis Duran eated Date: 2008 8:27: 47 AM; Not Available [facility] 02:52:03 Medications Name Sig Start Date Stop Date Status Note LastModified by Organization Details LastModified Time Celebrex 200 mg capsule Take 1 capsule every day by oral route as needed. 2021 active Not Available Not Available Not Avai lable baclofen 10 mg tablet Take 1 tablet 3 times a day by oral route as needed. 2021 active Not Available Not Available Not Avai lable Advil 200 mg tablet Every two hours active Duration : 10 days;Vikash quency: q2h;Medi cation Descript ion: ibuprofe n; Route:or al; refills: 0; Quantity :120 tablet Not Available Not Available Not Available Percocet 5 mg-325 mg tablet 1-2 PO q 4-6 hours prn surgical pain 02/07 completed Not Available Not Available Not Available diazepam 5 mg tablet Take 2 tablets as needed by oral route. 2020 active NDC: 0904-588 0-61 Not Available Not Available Not Available Zantac active Medicati on Descript ion: ranitidi ne; refills: 0 Not Available Not Available Not Available Claritin Daily active Frequenc y: daily;Me dication Descript ion: loratadi ne; Dosage:1 ; Route:or al; refills: 0; Quantity :30 Not Available Not Available Not Available fexofenad ine 11/14 completed Medicati on Descript ion: fexofena dine; Route:or al; refills: 0 Not Available Not Available Not Available sodium,po tassium,m ag sulfates 17.5 gram-3.13 gram-1.6 gram oral soln Take by oral route for 1 day. active Not Available Not Available No t Available Xarelto 10 mg tablet Take 1 tablet every day by oral route. active Not Available Not Available No t Available Vitals Date Recorded Body weight Pain severity - 0-10 verbal numeric rating [Score] - Reported Systolic blood pressure Diastolic blood pressure Provider Name and Address Organization Details Last Updated DateTime 08/13/2021 048585.7 6 g 0 126 mm[Hg] 80 mm[Hg] [facility] 08/13/2021 15:29:48 Date Recorded Body weight Pain severity - 0-10 verbal numeric rating [Score] - Reported Systolic blood pressure Diastolic blood pressure Provider Name and Address Organization Details Last Updated DateTime 02/18/2022 612370.46 g 6 100 mm[Hg] 64 mm[Hg] Karolina Romero [facility] 02/18/2022 14:29:07 Date Recorded Body weight Pain severity - 0-10 verbal numeric rating [Score] - Reported Systolic blood pressure Diastolic blood pressure Provider Name and Address Organization Details Last Updated DateTime 04/01/2022 042689.4 6 g 0 128 mm[Hg] 80 mm[Hg] [facility] 04/01/2022 14:23:58 Social History Question Answer Notes LastModified by Organizat ion Details LastModified Time Tobacco Smoking Status Current [facility] 14:07:21 What Is Your Level Of Alcohol Consumption? None Information not available 02/19/2021 What Was The Date Of Your Most Recent Tobacco Screening? 04/01/2022 Information not available 04/01/2022 Sex: Unknown Functional Status None recorded. Mental Status None recorded. Family History Relationship Description Onset Age of this Age Resolved Age Notes LastModified by Organization Details LastModified Time Unspecified Relation Arthritis [email or web address] Not available 2016 14:07:00 Medical History Condition Response Diabetes N Allergies/Hayfever Y Thyroid Disease N Arthritis Y Heart Conditions N Tuberculosis N Migraines N Asthma N Pneumonia N Blood Thinners N Sleep Apnea N High Cholesterol N Anesthesia Complications N Heart Attack ([place]) N Hypertension N Gynecological HistoryNo gynecological history recorded. Obstetrics History GPAL:G 0 P 0 0 0 0 Past Encounters Encounter ID Performer Location Encounter Start Date Encounter Closed Date Diagnosis/Indication Diagnosis SNOMED-CT Code Diagnosis ICD10 Code Diagnosis Note [id number] Chris TIM MD [facility] [address] [place] [address] 11/14/2016 13:57:10 11/15/2016 07:42:36 Full thickness rotator cuff tear 884589851 M75.121 Arthritis of acromioclavicular joint 690850811 M13.549 [id number] Chris TIM MD SURGERY SCHEDULE [address] [place] [id number] 01/29/2017 06:37:11 01/29/2017 06:42:29 [id number] Chris TIM MD [facility] [address] [place] [address] 6 02/07/2017 09:30:47 02/07/2017 11:26:10 Full thickness rotator cuff tear 645093250 M75.110 [id number] Chris TIM MD [facility] [address] [place] [address] 6 03/13/2017 08:54:13 03/13/2017 14:13:47 Full thickness rotator cuff tear 539147259 M75.527 [id number] [facility]ICK [facility] [address] [place] [id number] 03/16/2018 12:54:01 03/17/2018 11:52:36 Lumbar radiculopathy 316837966 M54.16 Patient provided CD of lumbar MRI ? Moderate lumbar Spondylosi s ? Moderate foraminal stenosis at L3-4 L4-5 . No severe critical neurocompr ession. No acute fracture. 62-year-ol d female with history of left lumbar radiculopa thy And moderate lumbar spondylosi s and stenosis on MRI. MRI images reviewed with Dr. Lozada.. We did not appreciate any severe neurocompr ession. She does have moderate Foraminal stenosis in the lower lumbar spine. We do not recommend surgery at this time. We recommend that she anticipate physical therapy and if refractory , be evaluated for a left L3-4 transforam inal epidural steroid injection by pain management . She can follow up with our clinic in the future should her symptoms become progressiv e and refractory to these treatment measures. The patient agrees with this plan. [id number] ISAURA DICK PA-C NEUROSURG [facility] [address] [facility] [place] [id number] 01/04/2021 09:59:34 01/04/2021 11:21:31 Lumbar radiculopathy 526245333 M54.16 65-year-ol d female with known foraminal stenosis at L3-4 and L4-5 with worsening bilateral lumbar radiculopa thy. The patient has a diminished until her reflex on the right. Symptoms are not responding to anti-infla mmatories or physical therapy. We need to update the patient's lumbar MRI without contrast. I would also like to order standing flexion-ex tension x-rays to rule out instabilit y. Once these images are updated, we will review them and contact the patient. We'll also have the patient back after the pictures are reviewed to discuss any treatment options which may be in the form of spine surgery versus further spine injections . [id number] ELISE LEBLANC MD [facility] [address] [place] [address] 1 02/19/2021 12:51:07 02/19/2021 13:25:15 Spinal stenosis of lumbar region 24931127 M48.061 Lumbar radiculopathy 128 550362 M54.16 [id number] ELISE LEBLANC [facility] [address] [place] [id number] 03/08/2021 12:39:56 03/09/2021 09:01:27 Lumbar radiculopathy 019685623 M54.16 [id number] ELISE LEBLANC MD PA[facility]INE [address] [place] [address] 1 04/10/2021 13:51:11 04/10/2021 14:27:14 Lumbar radiculopathy 736535816 M54.16 Degenerati on of lumbar intervertebral disc 41935863 M51.36 [id number] ELISE LEBLANC MD PA[facility] MED[facility]INE [address] [place], [place] [id number] 1 05/10/2021 09:57:52 05/10/2021 10:44:37 Left-sided piriformis syndrome 4765003048 14707 M54.32 Lumbar radiculopathy 128 306824 M54.16 Degenerati on of lumbar intervertebral disc 93553807 M51.36 [id number] ELISE LEBLANC MD [facility] [address] [place] [address] 1 05/16/2021 12:01:44 05/17/2021 11:54:26 Left-sided piriformis syndrome 9816432802 35680 M54.32 [id number] ELISE LEBLANC MD PA[facility] MED[facility]INE [address] [place] [address] 1 06/15/2021 15:05:38 06/15/2021 15:55:46 Lumbar radiculopathy 050534400 M54.16 Left-sided piriformis syndrome 4459804792 63487 M54.32 Myofascial pain 83346414 9 M79.10 [id number] ELISE LEBLANC MD PA[facility]INE [address] [place] [address] 1 08/13/2021 15:07:10 08/13/2021 15:59:23 Lumbar radiculopathy 684884705 M54.16 Degenerati on of lumbar intervertebral disc 28470619 M51.36 Left-sided piriformis syndrome 3021263861 53070 M54.32 [id number] ELISE LEBLANC MD [facility] [employer] N[employer] [facility]ARGES [address] [place] [address] 1 01/02/2022 08:38:06 01/04/2022 09:57:46 Lumbar radiculopathy 469161268 M54.16 [id number] ELISE LEBLANC MD PA[facility] MED[facility]INE [address] [place] [address] 1 02/18/2022 13:34:58 02/18/2022 15:12:39 Left-sided piriformis syndrome 7411248501 76777 M54.32 [id number] ELISE LEBLANC MD [facility] N[facility] [address] [place] [address] 1 03/14/2022 09:35:30 03/14/2022 15:31:33 Left-sided piriformis syndrome 6085128859 15951 M54.32 [id number] ELISE LEBLANC MD PA[facility] MEDICINE [address] [place] [id number] 04/01/2022 13:27:26 04/01/2022 14:41:27 Left-sided piriformis syndrome 1509251842 40279 M54.32 Health Concerns Section Related Observation LastModified by Organization Detai ls LastModified Time None Recorded Concern Status LastModified by Organization Details LastModified Time None Recorded Advance Directives Directive None Recorded Payers Encounter Date Sequence Insurance Name Policy Number Policy Krishna Covered Member ID Krishna Member ID Guarantor Name 08/13/2021 1 [employer] (MEDICARE REPLACEMENT/A DVANTAGE - PPO) Lizeth Robles [place] [id number] Lizeth Margaret [employer] 01/02/2022 1 [employer] (MEDICARE REPLACEMENT/A DVANTAGE - PPO) Lizeth Robels [employer] [id number] Lizeth Margaret [place] 02/18/2022 1 [employer] (MEDICARE REPLACEMENT/A DVANTAGE - PPO) Lizeth Margaret [place] [id number] Lizeth Margaret [employer] 03/14/2022 1 [employer] (MEDICARE REPLACEMENT/A DVANTAGE - PPO) Lizeth Robles [place] [id number] Lizeth Margaret Gordon 04/01/2022 1 [employer] (MEDICARE REPLACEMENT/A DVANTAGE - PPO) Lizeth Robles [employer] [id number] Lizeth Margaret MorrisonEmpire Notes Date Note Type Note Provider Name and Address Organization Details Recorded Time 08/13/2021 text/html 66-year-old fema jace presenting for follow-up with regards to back and joint discomfort. At her last visit she was started on Celebrex. ELISE LEBLANC MD [address] [place] [address], [phone], [facility] 08/13/2021 15:52:28 02/18/2022 text/html Pain Management Interval HistoryReported bypatient.Notes:2021 - L4L5 LESI - 20% 66-year-old female presenting for follow-up with regards to back pain. At her last visit she underwent repeat lumbar epidural steroid injection. ELISE LEBLANC MD [facility] [place], [phone], [facility] 02/18/2022 15:06:47 04/01/2022 text/html Pain Management Interval HistoryReported bypatient.Notes:03/14 - L piriformis - 100% 66-year-old female presenting for follow-up with regards to back pain. Patient has a history of piriformis syndrome on the left and underwent left piriformis injection at the last visit. ELISE LEBLANC MD [facility] [place], [address], [facility] 04/01/2022 14:45:08 OBGyn Episode No OBEpisode recorded.
--- OUTSIDE RECORDS SUMMARY | 2024-08-12 22:17 | XMS_ITS | Clinical Summary ---
Author Organization [facility] , [facility] Address [address] [place] [address] Phone Care Team Providers Care Costuming Supervisor Name Role Phone OSMAN FRORESTER, LESLIE Unavailable [phone] Kathrine FORRESTER, Beth Unavailable [phone] Reason for Visit and Chief Complaint The Chief Complaint is: low back pain Problems Includes: Problems addressed during this encounter and other active Problems Current Visit Onset Date Resolved Date Provider Madhu mustafa Status Lower Back Pain 02/24/2023 Beth carl MD Active Last Documented On 3 8:54AM ; [facility], [facility] Plan of Treatment - Patient screened for future fall risk: documentation of any fall with injury in past year - Last Documented On 02/23/2024 2:36PM ; [facility], [facility] Future Appointments Date Time Location Provi jose Follow Up 08/16/2024 1:15PM [facility] ZACHARY Chisholm MD Last Documented On 5 3:56PM ; [facility], [facility] Follow Up 10/25/2024 1:15PM [facility] ZACHARY Chisholm MD Last Documented On 4 2:15PM ; [facility], [facility] Instructions to patient Lose weight Last Documented On 4 2:02PM ; [facility], [facility] Assessments Includes: Assessments from this encounter Findings - Overweight - Last Documented On 02/23/2024 2:36PM ; [facility], [facility] Fall Risk Assessment: - Last Documented On 02/23/2024 2:36PM ; [facility], [facility] This patient has been identified as a fall risk. Balance/gait along with postural blood pressure, vision and home fall hazards have been assessed. Medications have been reviewed, and recommendations made with regard to contributing factors for future falls. - Last Documented On 02/23/2024 2:36PM ; [facility], [facility] Plan of care: Consideration of vitamin D supplementation along with balance and strength training with consideration for formal physical therapy has been discussed with the patient. - Last Documented On 02/23/2024 2:36PM ; [facility], [facility] Instructions Includes: Instructions from this encounter Instructions to patient Lose weight Last Documented On 4 2:02PM ; [facility] Medical Equipment - Implanted Devices Includes: Current Devices No Medical Equipment Recorded Medications Includes: Medications discussed during this encounter and other current Medications Current Medications (continue as prescribed) Losartan Potassium 25 MG Oral Tablet 07/09/2023 Prov ider: LESLIE BREWER MD Diagnosis: Last Documented On 4 9:03AM By Beth Chisholm ; [facility] Xarelto 20 MG Oral Tablet 06/09/2023 Provider: ST MARLEEN BREWER MD Diagnosis: Last Documented On 4 9:03AM By Beth Chisholm ; [facility] Rybelsus 7 MG Oral Tablet 06/09/2023 Provider: ST MARLEEN BREWER MD Diagnosis: Last Documented On 4 9:03AM By Beth Chisholm ; [facility] Levothyroxine Sodium 50 MCG Oral Tablet 06/07/2023 Daquan boxder: LESLIE BREWER MD Diagnosis: Last Documented On 4 9:03AM By Beth Chisholm ; [facility] Past Medications on file Gabapentin 100 MG Oral Capsule 10/20/2023 - 11/19/2023 Provider: Beth Chisholm MD Diagnosis: Low back pain, unspecified Take 1 capsule PO at bedtime as needed Last Documented On 4 3:15PM By Beth Chisholm ; [facility] HYDROcodone-Acetaminophen 10 -325 MG Oral Tablet 10/09/2023 - 10/16/2023 Provider: Bteh Chisholm MD 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, lumbar region Take 1 tablet PO Q4H NEED ED-may take with tylenol Last Documented On 4 11:38AM By Beth Chisholm ; [facility], [facility] Methocarbamol 750 MG Oral Tablet 10/08/2023 - 11/07/2023 Provider: Beth Chisholm MD Diagnosis: Spinal stenosis, lumbar region without neurogenic noah Take 1 tablet PO up to 3 bonnie es a day as needed Last Documented On 4 5:50PM By Beth Chisholm ; [facility], [facility] Docusate Sodium 100 MG Oral Capsule 10/08/2023 - 11/07/2023 Provider: Beth Chisholm MD Diagnosis: Spinal stenosis, lumbar region without neurogenic noah Take 1 capsule PO twice a da y for constipation Last Documented On 4 5:50PM By Beth Chisholm ; [facility], [facility] Medrol 4 MG Oral Tablet Ther apy Pack 05/14/2023 - 06/13/2023 Provider: ANGEL Billy Diagnosis: take as directed Last Documented On 4 11:56AM By Angela Green ; [facility], [facility] Medications Administered Includes: Administered Medications from this encounter No Administered Medications Recorded Vital Signs Includes: Vital Signs from this encounter Vital Name 02/23/2024 02:05P Height (in) 64 Weight (lb) 250 Body Mass Index 42.9 Body Surface Area 2.2 Pain Level 1 Note: cd Last Documented: On 02/23/2024 2:05PM ; [facility], [facility] Results Includes: Results discussed during this encounter No Results Recorded For Specified Dates History of Present Illness Includes: History of Present Illness from this encounter AVEL Leyva is a 68 year old female. - Allergy list reviewed - Problem list reviewed - Medication list reviewed - Previous history of new onset pain Injury is not work related or an automotive accident - Pain is constant (100% of the time) - Patient pain level from 1-10: 1 - Yes, previous treatment. - History of Physical Therapy @ [facility] - History of Home Exercise - History of Injections 03/06/2023 Bilat L4-S1 Facet Inj 04/17/2023 Bilat L4-S1 Facet Inj 2023 L4-5 [facility] - - Review of medications documented Medications used for this condition: This is a 68-year-old female following up with me 4 months status post L4-5 decompression. Overall, read is doing well. She still has some paraspinal musculature pain in the right buttock and pain over the right greater trochanter. Otherwise she was doing very well. Social History Description Last Updated Tobacco non-user 02/24/2023 Last Documented On 4 2:02PM ; [facility], [facility] Caffeine use 02/24/2023 Last Documented On 4 2:02PM ; [facility], [facility] No recent change in diet 02/24/2023 Last Documented On 4 2:02PM ; [facility], [facility] Not a current smoker. 02/24/2023 Last Documented On 4 2:02PM ; [facility], [facility] Not exercising regularly 02/24/2023 Last Documented On 4 2:02PM ; [facility], [facility] Not using alcohol 02/24/2023 Last Documented On 4 2:02PM ; [facility], [facility] Not using drugs 02/24/2023 Last Documented On 4 2:02PM ; [facility], [facility] Smoking Status Unknown Procedures and Surgical History Includes: Procedures from this encounter Procedures Code Diagnosis Performing Provider Service L ocation Service Date use of tobacco assessment performed 1000F Last Documented On 4 2:02PM ; [facility], [facility] review of medications documented 1160F Last Documented On 4 2:02PM ; [facility], [facility] an X-ray was performed 02/24/2023 [facility] @ [facility] ~ 11/17/2023 LSsoldotna @ [facility] [id number] Last Documented On 4 2:04PM ; [facility], [facility] an MRI was performed 01/27/2023 LSsoldotna @ [facility] [id number] Last Documented On 4 2:02PM ; [facility], [facility] Surgical History Last Updated History of back surgery 10/09/2023 L4[facility]5 Decompression @ [facility] 10/20/2023 Last Documented On 4 2:02PM ; [facility], [facility] Medical History Includes: Medical History addressed during this encounter Description Last Updated History of History of Blood Clots 2022 Last Documented On 4 2:02PM ; [facility] Family History Includes: Family History addressed during this encounter Description Last Updated Stroke / Seizures 02/24/2023 Last Documented On 4 2:02PM ; [facility] Review of Systems Includes: Review of Systems from this encounter Systemic: Not feeling tired, no recent weight loss, and no recent weight gain. Head: No headache and no sinus pain. Eyes: No vision problems and no Cataracts. Glasses/Contacts. No Glaucoma. Otolaryngeal: No hearing loss and no tinnitus. Cardiovascular: No chest pain or discomfort, no palpitations, no Hypertension, and no High Cholesterol. Pulmonary: No daytime asthma symptoms and no chronic cough. No wheezing. Gastrointestinal: No heartburn and no abdominal pain. No Indigestion, no Peptic Ulcer, no GI Stomach Bleed, no Ulcers, and no Acid Reflux. Endocrine: No hot flashes. Muscle weakness and Diabetes. No Hypothyroid. Hyperthyroid. Hematologic: No easy bleeding, no tendency for easy bruising, and no Anemia. Musculoskeletal: Arthritis and lower back pain. No soft tissue swelling. Pain localized to one or more joints. Neurological: No dizziness and no convulsions. Numbness. Psychological: No anxiety, no emotional lability, no depression, and no insomnia. Not crying for no reason. Skin: No dry skin. No Ulcers, no Scars, and no rash. Allergic and Immunologic: Complaint of seasonal allergic reaction. Mental Status Includes: Mental Status from this encounter Description No anxiety Functional Status Includes: Functional Status from this encounter No Functional Status Recorded Physical Exam Includes: Physical Exam from this encounter Allergies Includes: Active Allergies Substance Type Reaction Onset Date Resolved Date Statu s Sulfa Antibiotics Allergy Hives / Urticaria 02/24/2023 Active Last Documented On 5 3:29PM ; [facility] Encounters Encounter Provider Location Date Check-In Time Check-Out Time Diagnosis Follow Up Beth wallis MD [facility] 4 2:01PM 2:16PM Overweight Insurance Includes: Active Insurance Policies Plan Name Member ID Group # Subscriber Relationship Effect jaqui Dates 1 - [employer] [id number] Lizeth Thomas 05/20/2021 - Unknown Clinical Notes Includes: Clinical Notes from this encounter * Progress note Date Encounter Last Documented by 02/23/2024 Follow Up Last documented on 02/23/2024; 2:36 PM, Beth Leyva MD; [facility], [facility] Active Problems & Conditions - Lower Back Pain Chief Complaint The Chief Complaint is: Low back pain. Referred Here Referred by PCP. History of Present Illness Lizeth Levya is a 68 year old female. - Allergy list reviewed - Problem list reviewed - Medication list reviewed - Previous history of new onset pain Injury is not work related or an automotive accident - Pain is constant (100% of the time) - Patient pain level from 1-10: 1 - Yes, previous treatment. - History of Physical Therapy @ [facility] - History of Home Exercise - History of Injections 03/06/2023 Bilat L4-S1 Facet Inj 04/17/2023 Bilat L4-S1 Facet Inj 2023 L4-5 [facility] - - Review of medications documented Medications used for this condition: This is a 68-year-old female following up with me 4 months status post L4-5 decompression. Overall, read is doing well. She still has some paraspinal musculature pain in the right buttock and pain over the right greater trochanter. Otherwise she was doing very well. Current Medication - Levothyroxine Sodium 50 MCG Oral Tablet once a day 90 days, 0 refills - Losartan Potassium 25 MG Oral Tablet once a day 90 days, 0 refills - Rybelsus 7 MG Oral Tablet once a day 30 days, 0 refills - Xarelto 20 MG Oral Tablet once a day 90 days, 0 refills Past Medical/Surgical History Diagnoses: History of Blood Clots Surgical: - Back surgery 10/09/2023 L4-5 Decompression @ [facility] Social History Not a current smoker. Current diet: No recent change in diet. Caffeine use: Caffeine use. Tobacco use: Tobacco non-user. Alcohol: Not using alcohol. Drug Use: Not using drugs. Habits: Not exercising regularly. Allergies - Sulfa Antibiotics Reaction: Hives / Urticaria Family History Stroke / Seizures Review Of Systems Systemic: Not feeling tired, no recent weight loss, and no recent weight gain. Head: No headache and no sinus pain. Eyes: No vision problems and no Cataracts. Glasses/Contacts. No Glaucoma. Otolaryngeal: No hearing loss and no tinnitus. Cardiovascular: No chest pain or discomfort, no palpitations, no Hypertension, and no High Cholesterol. Pulmonary: No daytime asthma symptoms and no chronic cough. No wheezing. Gastrointestinal: No heartburn and no abdominal pain. No Indigestion, no Peptic Ulcer, no GI Stomach Bleed, no Ulcers, and no Acid Reflux. Endocrine: No hot flashes. Muscle weakness and Diabetes. No Hypothyroid. Hyperthyroid. Hematologic: No easy bleeding, no tendency for easy bruising, and no Anemia. Musculoskeletal: Arthritis and lower back pain. No soft tissue swelling. Pain localized to one or more joints. Neurological: No dizziness and no convulsions. Numbness. Psychological: No anxiety, no emotional lability, no depression, and no insomnia. Not crying for no reason. Skin: No dry skin. No Ulcers, no Scars, and no rash. Allergic and Immunologic: Complaint of seasonal allergic reaction. Physical Findings - Vitals taken 02/23/2024 02:05 pm cd Height 64 in Weight 250 lbs Body Mass Index 42.9 kg/m2 Body Surface Area 2.2 m2 Pain Level 1 General: Alert and oriented x3 Focused musculoskeletal exam of the spine: Surgical incision is well-healed and clean, dry, and intact. There are no signs or symptoms concerning for infection Moving the bilateral upper and lower extremities similar to preoperative state with no new focal deficits Ambulating similar to preoperative state She was exquisitely tender over the right greater trochanter User Defined 5 This is a 68-year-old female 4 months status post L4-5 decompression. It was nice seeing Lizeth in the office today. I told her that I think things are going well. I am going to set her free until about 8 months from now she can follow up for a 1 year postoperative checkup. She can call in the meantime with any issues. Fall Risk Assessment: This patient has been identified as a fall risk. Balance/gait along with postural blood pressure, vision and home fall hazards have been assessed. Medications have been reviewed, and recommendations made with regard to contributing factors for future falls. Plan of care: Consideration of vitamin D supplementation along with balance and strength training with consideration for formal physical therapy has been discussed with the patient. Assessment - Overweight Previous Tests Imaging: X-Ray: An X-ray was performed 02/24/2023 [facility] @ [facility] 11/17/2023 [facility] @ [facility]. MRI Scan: An MRI was performed 01/27/2023 [facility] @ [facility]. Counseling/Education - Tobacco non-user - Use of tobacco assessment performed - Lose weight Plan - Patient screened for future fall risk: documentation of any fall with injury in past year Practice Management Use of tobacco assessment performed Review of medications documented. Care Team - LESLIE BREWER MD - MEDICAL CLAIMS ASSISTANT Notes This dictation was done with voice recognition software and may contain errors and omissions.
--- OUTSIDE RECORDS SUMMARY | 2024-08-12 22:17 | XMS_ITS | Clinical Summary ---
Author Organization [facility] Address [address] [place] [address] Phone Care Team Providers Care Partridge Farmer Name Role Phone OSMAN FORRESTER, LESLIE Unavailable [phone] Kathrine FORRESTER, Beth Unavailable [phone] Reason for Visit and Chief Complaint The Chief Complaint is: low back pain Problems Includes: Problems addressed during this encounter and other active Problems Current Visit Onset Date Resolved Date Provider Madhu mustafa Status Lower Back Pain 02/24/2023 Beth carl MD Active Last Documented On 3 8:54AM ; [facility], [facility] Plan of Treatment - Patient screened for future fall risk: documentation of any fall with injury in past year - Last Documented On 07/07/2024 3:57PM ; [facility], [facility] Future Appointments Date Time Location Provi jose Follow Up 08/16[facility]20[facility] 1[facility] ZACHARY Chisholm MD Last Documented On 5 3:56PM ; [facility], [facility] Follow Up 10/25/2024 1:15PM [facility] ZACHARY Chisholm MD Last Documented On 4 2:15PM ; [facility], [facility] Instructions to patient Lose weight Last Documented On 5 3:29PM ; [facility], [facility] Assessments Includes: Assessments from this encounter Findings - Overweight - Last Documented On 07/07/2024 3:57PM ; [facility] 68-year-old female status post L4-5 laminectomy with right SI joint arthropathy. - Last Documented On 07/07/2024 3:57PM ; [facility], [facility] It was nice seeing Lizeth. I told her I want her to continue with her physical therapy which dedicated to abductor strengthening particularly on the right side. We can also send her for a right SI joint injection to help - Last Documented On 07/07/2024 3:57PM ; [facility] Instructions Includes: Instructions from this encounter Instructions to patient Lose weight Last Documented On 5 3:29PM ; [facility] Medical Equipment - Implanted Devices Includes: Current Devices No Medical Equipment Recorded Medications Includes: Medications discussed during this encounter and other current Medications Current Medications (continue as prescribed) Losartan Potassium 25 MG Oral Tablet 07/09/2023 Prov ider: LESLIE BREWER MD Diagnosis: Last Documented On 4 9:03AM By Beth Chisholm ; [facility] Xarelto 20 MG Oral Tablet 06/09/2023 Provider: ST MARLEEN BREWER MD Diagnosis: Last Documented On 4 9:03AM By Beth Chisholm ; [facility] Rybelsus 7 MG Oral Tablet 06/09/2023 Provider: ST MARLEEN BREWER MD Diagnosis: Last Documented On 4 9:03AM By Beth Chisholm ; [facility] Levothyroxine Sodium 50 MCG Oral Tablet 06/07/2023 P rovider: LESLIE BREWER MD Diagnosis: Last Documented On 4 9:03AM By Beth Chisholm ; [facility] Past Medications on file Gabapentin 100 MG Oral Capsule 10/20/2023 - 11/19/2023 Provider: Beth Chisholm MD Diagnosis: Low back pain, unspecified Take 1 capsule PO at bedtime as needed Last Documented On 4 3:15PM By Beth Chisholm ; [facility] HYDROcodone-Acetaminophen 10 -325 MG Oral Tablet 10/09/2023 - 10/16/2023 Provider: Beth Chisholm MD 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, lumbar region Take 1 tablet PO Q4H NEED ED-may take with tylenol Last Documented On 4 11:38AM By Beth Chisholm ; [facility] Methocarbamol 750 MG Oral Tablet 10/08/2023 - 11/07/2023 Provider: Beth Chisholm MD Diagnosis: Spinal stenosis, lumbar region without neurogenic noah Take 1 tablet PO up to 3 bonnie es a day as needed Last Documented On 4 5:50PM By Beth Chisholm ; [facility] Docusate Sodium 100 MG Oral Capsule 10/08/2023 - 11/07/2023 Provider: Beth Chisholm MD Diagnosis: Spinal stenosis, lumbar region without neurogenic noah Take 1 capsule PO twice a da y for constipation Last Documented On 4 5:50PM By Beth Chisholm ; [facility], [facility] Medrol 4 MG Oral Tablet Ther apy Pack 05/14/2023 - 06/13/2023 Provider: ANGEL Billy Diagnosis: take as directed Last Documented On 4 11:56AM By Angela Green ; [facility], [facility] Medications Administered Includes: Administered Medications from this encounter No Administered Medications Recorded Vital Signs Includes: Vital Signs from this encounter Vital Name 05/17/2024 03:35P Height (in) 64 Weight (lb) 254 Body Mass Index 43.6 Body Surface Area 2.2 Pain Level 3 Note: clw Last Documented: On 05/17/2024 3:35PM ; [facility], [facility] Results Includes: Results discussed during this [...] treatment. - History of Physical Therapy @ [facility] - History of Home Exercise - History of Injections 03/06/2023 Bilat L4-S1 Facet Inj 04/17/2023 Bilat L4-S1 Facet Inj 2023 L4-5 [facility] - - Review of medications documented Medications used for this condition: This is a 68-year-old female it was about 9 months status post L4-5 laminectomy. She was very well with this. She was here today with sort of 2 separate complaints. On the 1 hand, she reports pain that is clicking sort of at the thoracolumbar junction right around the bra line. On the other hand she was some pain in her right buttock. Social History Description Last Updated Tobacco non-user 02/24/2023 Last Documented On 3:29PM ; [facility], [facility] Caffeine use 02/24/2023 Last Documented On 3:29PM ; [facility], [facility] No recent change in diet 02/24/2023 Last Documented On 3:29PM ; [facility], [facility] Not a current smoker. 02/24/2023 Last Documented On 3:29PM ; [facility], [facility] Not exercising regularly 02/24/2023 Last Documented On 3:29PM ; [facility], [facility] Not using alcohol 02/24/2023 Last Documented On 3:29PM ; [facility], [facility] Not using drugs 02/24/2023 Last Documented On 3:29PM ; [facility], [facility] Smoking Status Unknown Procedures and Surgical History Includes: Procedures from this encounter Procedures Code Diagnosis Performing Provider Service L ocation Service Date use of tobacco assessment performed 1000F Last Documented On 3:29PM ; [facility], [facility] review of medications documented 1160F Last Documented On 3:29PM ; [facility], [facility] an X-ray was performed 02/24/2023 [facility] @ [facility] ~ 11/17/2023 [facility] @ [facility] [id number] Last Documented On 3:29PM ; [facility], [facility] an MRI was performed 01/27/2023 [facility] @ [facility] [id number] Last Documented On 3:29PM ; [facility], [facility] Surgical History Last Updated History of back surgery 10/09/2023 L4-5 Decompression @ [facility] 10/20/2023 Last Documented On 3:29PM ; [facility], [facility] Medical History Includes: Medical History addressed during this encounter Description Last Updated Past surgical history non-contributory 1 Last Documented On 5 3:29PM ; [facility] History of History of Blood Clots 2022 Last Documented On 5 3:29PM ; [facility] Family History Includes: Family History addressed during this encounter Description Last Updated Stroke / Seizures 02/24/2023 Last Documented On 5 3:29PM ; [facility] Review of Systems Includes: Review of Systems [...] Active Last Documented On 5 3:29PM ; [facility] Encounters Encounter Provider Location Date Check-In Time Check-Out Time Diagnosis Follow Up Beth wallis MD [facility] 5 3:21PM 4:01PM Overweight Insurance Includes: Active Insurance Policies Plan Name Member ID Group # Subscriber Relationship Effect jaqui Dates 1 - [employer] [id number] Lizeth Leyva Self 05/20/2021 - Unknown Clinical Notes Includes: Clinical Notes from this encounter * Progress note Date Encounter Last Documented by 05/17/2024 Follow Up Last documented on 07/07/2024; 3:57 PM, Beth Leyva MD; [facility], [facility] Active Problems & Conditions - Lower Back Pain Chief Complaint The Chief Complaint is: Low back pain. Referred Here Referred by PCP. History of Present Illness Lizeth Leyva is a 68 year old female. - Allergy list reviewed - Problem list reviewed - Medication list reviewed - Previous history of new onset pain Injury is not work related or an automotive accident - Pain is constant (100% of the time) - Patient pain level from 1-10: 1 - Yes, previous treatment. - History of Physical Therapy @ [facility] - History of Home Exercise - History of Injections 03/06/2023 Bilat L4-S1 Facet Inj 04/17/2023 Bilat L4-S1 Facet Inj 2023 L4-5 [facility] - - Review of medications documented Medications used for this condition: This is a 68-year-old female it was about 9 months status post L4-5 laminectomy. She was very well with this. She was here today with sort of 2 separate complaints. On the 1 hand, she reports pain that is clicking sort of at the thoracolumbar junction right around the bra line. On the other hand she was some pain in her right buttock. Current Medication - Levothyroxine Sodium 50 MCG [...] Medical/Surgical History Diagnoses: History of Blood Clots Past surgical history non-contributory. Surgical: - Back surgery 10/09/2023 L4-5 Decompression @ [facility] Social History Not a current smoker. Current [...] allergic reaction. Physical Findings - Vitals taken 05/17/2024 03:35 pm clw Height 64 in Weight 254 lbs Body Mass Index 43.6 kg/m2 Body Surface Area 2.2 m2 Pain Level 3 General: Alert and Oriented A&Ox3 Focused Musculoskeletal Exam of the Spine: Patient is able to ambulate in the room without assistive device No focal tenderness to palpation in the Lumbar Spine Motor HF KE AD EHL GS Right 5/5 5/5 5/5 5/5 5/5 Left 5/5 5/5 5/5 5/5 5/5 Sensation L2 L3 L4 L5 S1 Right 2 2 2 2 2 Left 2 2 2 2 2 Patellar reflex is 2+ bilaterally Achilles reflex is 2+ bilaterally No ankle clonus Symmetric, palpable posterior tibialis pulse bilaterally Positive right DEVAN, Gaenslen's, thigh thrust Tests Lumbar Spine X-ray Ap, Lateral, Flexion, and Extension views of the lumbar spine were obtained in the office today It was evidence of a prior L4-5 laminectomy with no obvious postoperative instability User Defined 5 Fall Risk Assessment: This patient has been [...] therapy has been discussed with the patient. 68-year-old female status post L4-5 laminectomy with right SI joint arthropathy. It was nice seeing Lizeth. I told her I want her to continue with her physical therapy which dedicated to abductor strengthening particularly on the right side. We can also send her for a right SI joint injection to help Assessment - Overweight Previous Tests Imaging: X-Ray: [place] [facility] 11/17/2023 [facility] @ [facility]. MRI Scan: An MRI was performed 01/27/2023 [facility] @ [facility]. Counseling/Education - Tobacco non-user - Use of tobacco assessment performed - Lose weight Plan - Patient screened for future fall risk: documentation of any fall with injury in past year Practice Management Use of tobacco assessment performed Review of medications documented. Care Team - LESLIE BREWER MD - TRANSFER TABLE OPERATOR HELPER Notes This dictation was done with voice recognition software and may contain errors and omissions. Health Reminders - Assess BMI satisfied 05/17/2024. - Assess Tobacco Use satisfied 02/24/2023. - Follow Up Plan BMI Management satisfied 05/17/2024.
--- OUTSIDE RECORDS SUMMARY | 2024-08-12 22:17 | XMS_ITS | Clinical Summary ---
Author Organization [facility] , [facility] Address [address] [place] [address] Phone Care Team Providers Care Ship Wirer Name Role Phone OSMAN FORRESTER, LESLIE Unavailable [phone] Kathrine FORRESTER, Beth Unavailable [phone] Reason for Visit and Chief Complaint The Chief Complaint is: low back pain Problems Includes: Problems addressed during this encounter and other active Problems Current Visit Onset Date Resolved Date Provider Madhu mustafa Status Lower Back Pain 02/24/2023 Beth carl MD Active Last Documented On 3 8:54AM ; [facility] Plan of Treatment - Patient screened for future fall risk: documentation of any fall with injury in past year - Last Documented On 11/07/2023 8:58AM ; [facility], [facility] Future Appointments Date Time Location Provi jose Follow Up 08/16/2024 1:[facility]PM [facility] ZACHARY Chisholm MD Last Documented On 5 3:56PM ; [facility] Follow Up 10/25/2024 1:15PM [facility] ZACHARY Chisholm MD Last Documented On 4 2:15PM ; [facility], [facility] Instructions to patient Lose weight Last Documented On 4 2:42PM ; [facility], [facility] Assessments Includes: Assessments from this encounter Findings - Overweight - Last Documented On 11/07/2023 8:58AM ; [facility], [facility] Fall Risk Assessment: - Last Documented On 11/07/2023 8:58AM ; [facility], [facility] This patient has been identified as a fall risk. Balance/gait along with postural blood pressure, vision and home fall hazards have been assessed. Medications have been reviewed, and recommendations made with regard to contributing factors for future falls. - Last Documented On 11/07/2023 8:58AM ; [facility] Plan of care: Consideration of vitamin D supplementation along with balance and strength training with consideration for formal physical therapy has been discussed with the patient. - Last Documented On 11/07/2023 8:58AM ; [facility], [facility] Instructions Includes: Instructions from this encounter Instructions to patient Lose weight Last Documented On 4 2:42PM ; [facility] Medical Equipment - Implanted Devices Includes: Current Devices No Medical Equipment Recorded Medications Includes: Medications discussed during this encounter and other current Medications New / Renewed during this visit Beth Chisholm MD on 10/20/2023 Gabapentin 100 MG Oral Capsule Provider: Beth carl MD 30 day supply: 30 capsule, 0 refills Diagnosis: Low back pain, unspecified Take 1 capsule PO at bedtime as needed Pharmacy: [facility] [address] [place], [address] - Last Documented On 4 3:15PM By Beth Chisholm ; [facility] Current Medications (continue as prescribed) Losartan Potassium 25 MG Oral Tablet 07/09/2023 Prov ider: LESLIE BREWER MD Diagnosis: Last Documented On 4 9:03AM By Beth Chisholm ; [facility] Xarelto 20 MG Oral Tablet 06/09/2023 Provider: ST MARLEEN BREWER MD Diagnosis: Last Documented On 4 9:03AM By Beth Chisholm ; [facility] Rybelsus 7 MG Oral Tablet 06/09/2023 Provider: ST MARLEEN BREWER MD Diagnosis: Last Documented On 4 9:03AM By Beth Chisholm ; [facility] Levothyroxine Sodium 50 MCG Oral Tablet 06/07/2023 Daquan titus: LESLIE BREWER MD Diagnosis: Last Documented On 4 9:03AM By Beth Chisholm ; [facility] Past Medications on file HYDROcodone-Acetaminophen 10 -325 MG Oral Tablet 10/09/2023 - 10/16/2023 Provider: Beth Chisholm MD 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, lumbar region Take 1 tablet PO Q4H NEED ED-may take with tylenol Last Documented On 4 11:38AM By Beth Chisholm ; [facility], [facility] Methocarbamol 750 MG Oral Tablet 10/08/2023 - 11/07/2023 Provider: Beth Chisholm MD Diagnosis: Spinal stenosis, lumbar region without neurogenic noah Take 1 tablet PO up to 3 bonnie es a day as needed Last Documented On 4 5:50PM By Beth Chisholm ; [facility], [facility] Docusate Sodium 100 MG Oral Capsule 10/08/2023 - 11/07/2023 Provider: Beth Chisholm MD Diagnosis: Spinal stenosis, lumbar region without neurogenic noah Take 1 capsule PO twice a da y for constipation Last Documented On 4 5:50PM By Beth Chisholm ; [facility] Medrol 4 MG Oral Tablet Ther apy Pack 05/14/2023 - 06/13/2023 Provider: ANGEL Billy Diagnosis: take as directed Last Documented On 4 11:56AM By Angela Green ; [facility] Medications Administered Includes: Administered Medications from this encounter No Administered Medications Recorded Vital Signs Includes: Vital Signs from this encounter Vital Name 10/20/2023 02:44P Height (in) 64 Weight (lb) 252 Body Mass Index 43.3 Body Surface Area 2.2 Note: HL Last Documented: On 10/20/2023 2:44PM ; [facility], [facility] Results Includes: Results discussed during this [...] treatment. - History of Physical Therapy @ [facility] - History of Home Exercise - History of Injections 03/06/2023 Bilat L4-S1 Facet Inj 04/17/2023 Bilat L4-S1 Facet Inj 2023 L4-5 [place] - - Review of medications documented Medications used for this condition: This is a 68-year-old female following up 2 weeks after a L4-5 decompression. Overall, read is doing very well. She denies any fevers or chills. Denies any drainage from her incision. Her only complaint is a little bit of burning in her right anterolateral thigh. Social History Description Last Updated Tobacco non-user 02/24/2023 Last Documented On 4 2:42PM ; [facility], [facility] Caffeine use 02/24/2023 Last Documented On 4 2:42PM ; [facility], [facility] No recent change in diet 02/24/2023 Last Documented On 4 2:42PM ; [facility], [facility] Not a current smoker. 02/24/2023 Last Documented On 4 2:42PM ; [facility], [facility] Not exercising regularly 02/24/2023 Last Documented On 4 2:42PM ; [facility] Not using alcohol 02/24/2023 Last Documented On 4 2:42PM ; [facility] Not using drugs 02/24/2023 Last Documented On 4 2:42PM ; [facility], [facility] Smoking Status Unknown Procedures and Surgical History Includes: Procedures from this encounter Procedures Code Diagnosis Performing Provider Service L ocation Service Date use of tobacco assessment performed 1000F Last Documented On 4 2:42PM ; [facility], [facility] patient screened for future fall risk: documentation of any fall with injury in past year 1100F Last Documented On 4 2:42PM ; [facility], [facility] review of medications documented 1160F Last Documented On 4 2:42PM ; [facility], [facility] an X-ray was performed 02/24/2023 [place] @ [facility] [id number] Last Documented On 4 2:42PM ; [facility], [facility] an MRI was performed 01/27/2023 [place] @ [facility] [id number] Last Documented On 4 2:42PM ; [facility] Surgical History Last Updated History of back surgery 10/09/[address] L4-[address] [facility] 10/20/2023 Last Documented On 4 8:58AM ; [facility] Medical History Includes: Medical History addressed during this encounter Description Last Updated History of History of Blood Clots 2022 Last Documented On 4 2:42PM ; [facility] Family History Includes: Family History addressed during this encounter Description Last Updated Stroke / Seizures 02/24/2023 Last Documented On 4 2:42PM ; [facility] Review of Systems Includes: Review of [...] Active Last Documented On 5 3:29PM ; [facility] Encounters Encounter Provider Location Date Check-In Time Check-Out Time Diagnosis Post Op Beth wallis MD [facility] 4 2:33PM 3:03PM Overweight Insurance Includes: Active Insurance Policies Plan Name Member ID Group # Subscriber Relationship Effect jaqui Dates 1 - [employer] [id number] Lizeth Leyva Self 05/20/2021 - Unknown Clinical Notes Includes: Clinical Notes from this encounter * Progress note Date Encounter Last Documented by 10/20/2023 Post Op Last documented on 11/07/2023; 8:58 AM, Beth Leyva MD; [facility], [facility] Active Problems & Conditions - Lower [...] treatment. - History of Physical Therapy @ [facility] - History of Home Exercise - History of Injections 03/06/2023 Bilat L4-S1 Facet Inj 04/17/2023 Bilat L4-S1 Facet Inj 2023 L4-5 [facility] - - Review of medications documented Medications used for this condition: This is a 68-year-old female following up 2 weeks after a L4-5 decompression. Overall, read is doing very well. She denies any fevers or chills. Denies any drainage from her incision. Her only complaint is a little bit of burning in her right anterolateral thigh. Current Medication - Chlorhexidine Gluconate 0.12% Mouth/Throat Solution use as directed 14 days, 0 refills - HYDROcodone-Acetaminophen 7.5-325 MG Oral Tablet twice a day 30 days, 0 refills - Levothyroxine Sodium 50 MCG Oral Tablet [...] - Back surgery 10/09/[address] L4-[address] [facility] Social History Not a current smoker. [...] allergic reaction. Physical Findings - Vitals taken 10/20/2023 02:44 pm HL Height 64 in Weight 252 lbs Body Mass Index 43.3 kg/m2 Body Surface Area 2.2 m2 General: Alert and oriented x3 Focused musculoskeletal exam of the spine: Surgical incision is well-healed and clean, dry, and intact. There are no signs or symptoms concerning for infection Moving the bilateral upper and lower extremities similar to preoperative state with no new focal deficits Ambulating similar to preoperative state User Defined 5 This is a 68-year-old female who is 2 weeks status post an L4-5 decompression. It was great seeing Lizeth doing so well after surgery. We will see her back in 4 weeks which will constitute a 6 week postoperative visit. We will get AP and lateral views of the spine at that visit. Fall Risk Assessment: This patient has been [...] Imaging: X-Ray: [place] was [place] [facility]. MRI Scan: An MRI was performed 01/27/2023 [facility] @ [facility]. Counseling/Education - Tobacco non-user - Use of tobacco assessment performed - Lose weight Plan StartCited - Low back pain, unspecified Gabapentin 100 MG capsule Take 1 capsule PO at bedtime as needed, 30 days, 0 refills EndCited - Patient screened for future fall risk: documentation of any fall with injury in past year Practice Management Use of tobacco assessment performed and patient screened for future fall risk documentation of any fall with injury in past year Review of medications documented. Care Team - LESLIE BREWER MD - TEST DESK TROUBLE LOCATOR Notes This dictation was done with voice recognition software and may contain errors and omissions.
--- OUTSIDE RECORDS SUMMARY | 2024-08-12 22:17 | XMS_ITS ---
Care Plan - [facility], [facility] Created on: August 12, 2024 Lizeth Leyva : 1955 Sex: Female Author Organization [facility] Address [address] [place] [address] Phone Care Team Providers Care Coke Crusher Operator Name Role Phone OSMAN FORRESTER, LESLIE Unavailable [phone] Kathrine FORRESTER, Beth Unavailable [phone]
--- OUTSIDE RECORDS SUMMARY | 2024-08-12 22:17 | XMS_ITS | Clinical Summary ---
Author Organization [facility] , [facility] Address [address] [place] [address] Phone Care Team Providers Care Optical Mechanic Name Role Phone OSMAN FORRESTER, LESLIE Unavailable [phone] Kathrine FORRESTER, Beth Unavailable [phone] Reason for Visit and Chief Complaint The Chief Complaint is: low back pain Problems Includes: Problems addressed during this encounter and other active Problems Current Visit Onset Date Resolved Date Provider Madhu mustafa Status Lower Back Pain 02/24/2023 Beth carl MD Active Last Documented On 3 8:54AM ; [facility], [facility] Plan of Treatment - Patient screened for future fall risk: documentation of any fall with injury in past year - Last Documented On 11/20/2023 11:07AM ; [facility], [facility] Fall Risk Assessment: This patient has been [...] with the patient. - Last Documented On 11/20/2023 11:07AM ; [facility], [facility] Future Appointments Date Time Location Provi jose Follow Up 08/16/2024 1:15PM [facility] ZACHARY Chisholm MD Last Documented On 5 3:56PM ; [facility], [facility] Follow Up 10/25/2024 1:15PM [facility] ZACHARY Chisholm MD Last Documented On 4 2:15PM ; [facility], [facility] Instructions to patient Lose weight Last Documented On 4 3:02PM ; [facility], [facility] Assessments Includes: Assessments from this encounter Findings - Overweight - Last Documented On 11/20/2023 11:07AM ; [facility], [facility] Instructions Includes: Instructions from this encounter Instructions to patient Lose weight Last Documented On 4 3:02PM ; [facility], [facility] Medical Equipment - Implanted Devices Includes: Current Devices No Medical Equipment Recorded Medications Includes: Medications discussed during this encounter and other current Medications Current Medications (continue as prescribed) Losartan Potassium 25 MG Oral Tablet 07/09/2023 Prov ider: LESLIE BREWER MD Diagnosis: Last Documented On 4 9:03AM By Beth Chisholm ; [facility], [facility] Xarelto 20 MG Oral Tablet 06/09/2023 Provider: ST MARLEEN BREWER MD Diagnosis: Last Documented On 4 9:03AM By Beth Chisholm ; [facility], [facility] Rybelsus 7 MG Oral Tablet 06/09/2023 Provider: ST MARLEEN BREWER MD Diagnosis: Last Documented On 4 9:03AM By Beth Chisholm ; [facility], [facility] Levothyroxine Sodium 50 MCG Oral Tablet 06/07/2023 P rovider: LESLIE BREWER MD Diagnosis: Last Documented On 4 9:03AM By Beth Chisholm ; [facility], [facility] Past Medications on file Gabapentin 100 MG Oral Capsule 10/20/2023 - 11/19/2023 Provider: Beth Chisholm MD Diagnosis: Low back pain, unspecified Take 1 capsule PO at bedtime as needed Last Documented On 4 3:15PM By Beth Chisholm ; [facility] HYDROcodone-Acetaminophen 10 -325 MG Oral Tablet 10/09/2023 - 10/16/2023 Provider: Beth Chisholm MD 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, lumbar region Take 1 tablet PO Q4H NEED ED-may take with tylenol Last Documented On 4 11:38AM By Beth Chisholm ; [facility], [facility] Methocarbamol 750 MG Oral Tablet 10/08/2023 - 11/07/2023 Provider: Beth Chisholm MD Diagnosis: Spinal stenosis, lumbar region without neurogenic noah Take 1 tablet PO up to 3 bonnie es a day as needed Last Documented On 4 5:50PM By Beth Chisholm ; [facility], [facility] Docusate Sodium 100 MG Oral Capsule 10/08/2023 - 11/07/2023 Provider: Beth Chisholm MD Diagnosis: Spinal stenosis, lumbar region without neurogenic noah Take 1 capsule PO twice a da y for constipation Last Documented On 4 5:50PM By Beth Chisholm ; [facility], [facility] Medrol 4 MG Oral Tablet Ther apy Pack 05/14/2023 - 06/13/2023 Provider: ANGEL Billy Diagnosis: take as directed Last Documented On 4 11:56AM By Angela Green ; [facility], [facility] Medications Administered Includes: Administered Medications from this encounter No Administered Medications Recorded Vital Signs Includes: Vital Signs from this encounter Vital Name 11/17/2023 03:09P Height (in) 64 Weight (lb) 258 Body Mass Index 44.3 Body Surface Area 2.2 Pain Level 0 Last Documented: On 11/17/2023 3:09PM ; [facility], [facility] Results Includes: Results discussed during this [...] time) - Patient pain level from 1-10: was 0 0 3-4 RIGHT LEG NERVE PAIN - Yes, previous treatment. - History of Physical Therapy @ [facility] [place] - History of Home Exercise - History of Injections 03/06/2023 Bilat L4-S1 Facet Inj 04/17/2023 Bilat L4-S1 Facet Inj 2023 L4-5 GARRET - - Review of medications documented Medications used for this condition: This is a 68-year-old female following up with me 6 weeks status post an L4-5 decompression. She continues to do very well from a postoperative standpoint. She today complains of some right lateral hip pain that radiates down her right IT band. Social History Description Last Updated Tobacco non-user 02/24/2023 Last Documented On 4 3:02PM ; [facility] Caffeine use 02/24/2023 Last Documented On 4 3:02PM ; [facility] No recent change in diet 02/24/2023 Last Documented On 4 3:02PM ; [facility] Not a current smoker. 02/24/2023 Last Documented On 4 3:02PM ; [facility] Not exercising regularly 02/24/2023 Last Documented On 4 3:02PM ; [facility] Not using alcohol 02/24/2023 Last Documented On 4 3:02PM ; [facility] Not using drugs 02/24/2023 Last Documented On 4 3:02PM ; [facility] Smoking Status Unknown Procedures and Surgical History Includes: Procedures from this encounter Procedures Code Diagnosis Performing Provider Service Location Service Date DRAIN/INJECT, JOINT/BURSA (RIGHT) Trochanteric bursitis, right hip Beth Chisholm MD [facility] 11/17/2023 Last Documented On 4 9:16AM ; [facility] Inj, Methylprednisolone acetate, 1 mg J1010 Trochanteric bursitis, right hip Beth Chisholm MD [facility] 11/17/2023 Last Documented On 4 9:16AM ; [facility] X-RAY EXAM OF LOWER SPINE 2-3 VIEWS LIMITED 61727 Spinal stenosis, lumbar region with neurogenic claudication Beth Chisholm MD [facility] 11/17/2023 Last Documented On 4 9:16AM ; [facility] use of tobacco assessment performed 1000F Last Documented On 4 3:02PM ; [facility] review of medications documented 1160F Last Documented On 4 3:02PM ; [facility] an X-ray was performed 02/24/2023 [facility] @ [facility] [id number] Last Documented On 4 3:02PM ; [facility] an MRI was performed 01/27/2023 D[facility] @ [facility] [place] [phone] [id number] Last Documented On 4 3:02PM ; [facility] Surgical History Last Updated History of back surgery 10/09/2023 L4-5 Decompression @ [facility] 10/20/2023 Last Documented On 4 3:02PM ; [facility] Medical History Includes: Medical History addressed during this encounter Description Last Updated Past surgical history non-contributory 1 Last Documented On 4 3:02PM ; [facility] History of History of Blood Clots 2022 Last Documented On 4 3:02PM ; [facility] Family History Includes: Family History addressed during this encounter Description Last Updated Stroke / Seizures 02/24/2023 Last Documented On 4 3:02PM ; [facility] Review of Systems Includes: Review [...] Active Last Documented On 5 3:29PM ; [facility], [facility] Encounters Encounter Provider Location Date Check-In Time Check-Out Time Diagnosis Post Op Beth wallis MD [facility] 4 2:53PM 3:31PM Overweight Insurance Includes: Active Insurance Policies Plan Name Member ID Group # Subscriber Relationship Effect jaqui Dates 1 - [employer] [id number] Lizeth Leyva Self 05/20/2021 - Unknown Clinical Notes Includes: Clinical Notes from this encounter * Progress note Date Encounter Last Documented by 11/17/2023 Post Op Last documented on 11/20/2023; 11:07 AM, Beth Leyva MD; [facility], [facility] Active Problems & Conditions - Lower [...] time) - Patient pain level from 1-10: was 0 0 3-4 RIGHT LEG NERVE PAIN - Yes, previous treatment. - History of Physical Therapy @ [facility] [place] - History of Home Exercise - History of Injections 03/06/2023 Bilat L4-S1 Facet Inj 04/17/2023 Bilat L4-S1 Facet Inj 2023 L4-5 [place] - - Review of medications documented Medications used for this condition: This is a 68-year-old female following up with me 6 weeks status post an L4-5 decompression. She continues to do very well from a postoperative standpoint. She today complains of some right lateral hip pain that radiates down her right IT band. Current Medication - Chlorhexidine Gluconate 0.12% Mouth/Throat [...] - Back surgery 10/09/2023 L4-5 Decompression @ [facility] Social History Not a current smoker. Current [...] allergic reaction. Physical Findings - Vitals taken 11/17/2023 03:09 pm Height 64 in Weight 258 lbs Body Mass Index 44.3 kg/m2 Body Surface Area 2.2 m2 Pain Level 0 Pain Level Note NERVE PAIN IN RIGHT LEG 3-4 General: Alert and oriented x3 Focused musculoskeletal exam of the spine: Surgical incision is well-healed and clean, dry, and intact. There are no signs or symptoms concerning for infection Moving the bilateral upper and lower extremities similar to preoperative state with no new focal deficits Ambulating similar to preoperative state She was exquisitely tender over the right greater trochanter Tests X-ray lumbar spine. AP and lateral views of the lumbar spine were reviewed by me in the office today. There was no obvious postoperative instability although there is evidence of an L4-5 decompression. User Defined 5 This is a 68-year-old female 6 weeks status post L4-5 decompression doing very well from a postoperative standpoint now with right greater trochanteric bursitis. It was nice seeing Lizeth back in the office. I told her that she has no restrictions from a spine surgery standpoint. We also provided her a right greater trochanteric bursa injection to see if this cooled off some of her symptoms. Hip bursa injection The risks of the procedure was explained to the patient and verbal consent was obtained. The patient was allowed to stand holding onto the exam table. This skin over the hip bursa region was prepped with Betadine solution. Using a 25-gauge spinal needle directing it at 90? - toward the hip bursa, the right hip bursa was injected with 80 mg Depo-Medrol and 3 cc's of Marcaine half percent plain. Needle was withdrawn and Band-Aid was applied. The patient tolerated the procedure well Assessment - Overweight Previous Tests Imaging: X-Ray: An X-ray was performed 02/24/2023 D[facility] @ [facility]. MRI Scan: An MRI was performed 01/27/2023 D[facility] @ [facility] [place]. Counseling/Education - Tobacco non-user - Use of tobacco assessment performed - Lose weight Plan - Patient screened for future fall risk: documentation of any fall with injury in past year Fall Risk Assessment: This patient has been [...] therapy has been discussed with the patient. Practice Management Use of tobacco assessment performed Review of medications documented. Care Team - LESLIE BREWER MD - [employer] Notes This dictation was done with voice recognition software and may contain errors and omissions.
--- OUTSIDE RECORDS SUMMARY | 2024-08-12 22:17 | XMS_ITS | Clinical Summary ---
Author Organization [facility] , [facility] Address [address] [place] [address] Phone Care Team Providers Care Biomechanical Engineer Name Role Phone OSMAN FORRESTER, LESLIE Unavailable [phone] Kathrine FORRESTER, Beth Unavailable [phone] Reason for Visit and Chief Complaint SI joint injection Problems Includes: Problems addressed during this encounter and other active Problems All Visits Onset Date Resolved Date Provider Condition S tatus Lower Back Pain 02/24/2023 Beth carl MD Active Last Documented On 8:54AM ; [facility] Plan of Treatment Diagnosis: SI Joint OA Procedure: Patient presents today for injection into the Right SI joint under fluoroscopy. Patient was placed on the fluoroscopy table. Patient was examined determining the localized area of pain over the right SI joint. Once this was performed the skin was then prepped with ChloraPrep and skin anesthetized with 1% lidocaine. Fluoroscopic guidance was used to place the 22-gauge needle into the sacroiliac joint at the most painful area. At that point a small amount of contrast was injected to confirm placement within the joint. And once confirmed an injection of bupivacaine and 40 mg of Kenalog was injected. Patient tolerated the procedure well. Sterile dressing was placed over the puncture site. And patient left the procedure room in stable condition. Follow-up evaluation approximately 10 minutes postprocedure revealing- % pain relief Patient could not tell if she had any relief yet. She will let us know at her follow up appointment. - Last Documented On 07/07/2024 9:25AM ; [facility], [facility] Future Appointments Date Time Location Provi jose Follow Up 08/16/2024 1:15PM [facility] Last Documented On 5 3:56PM ; [facility], [facility] Follow Up 10/25/2024 1:15PM [facility] ZACHARY Chisholm MD Last Documented On 4 2:15PM ; [facility], [facility] Assessments Includes: Assessments from this encounter No Assessments Recorded Medical Equipment - Implanted Devices Includes: Current Devices No Medical Equipment Recorded Medications Includes: Medications discussed during this encounter and other current Medications Current Medications (continue as prescribed) Losartan Potassium 25 MG Oral Tablet 07/09/2023 Prov ider: LESLIE BREWER MD Diagnosis: Last Documented On 4 9:03AM By Beth Chisholm ; [facility] Xarelto 20 MG Oral Tablet 06/09/2023 Provider: ST MARLEEN BREWER MD Diagnosis: Last Documented On 4 9:03AM By Beth Chisholm ; [facility] Rybelsus 7 MG Oral Tablet 06/09/2023 Provider: ST MARLEEN BREWER MD Diagnosis: Last Documented On 4 9:03AM By Beth Chisholm ; [facility] Levothyroxine Sodium 50 MCG Oral Tablet 06/07/2023 P rovider: LESLIE BREWER MD Diagnosis: Last Documented On 4 9:03AM By Beth Chisholm ; [facility] Medications Administered Includes: Administered Medications from this encounter No Administered Medications Recorded Results Includes: Results discussed during this encounter No Results Recorded For Specified Dates History of Present Illness Includes: History of Present Illness from this encounter No History of Present Illness Recorded Social History No Social History Recorded - Smoking Status Unknown Procedures and Surgical History Includes: Procedures from this encounter Procedures Code Diagnosis Performing Provider Service Location Service Date INJECT SACROILIAC JOINT (RIGHT) 41569 Sacroiliitis, not elsewhere classified Beth Chisholm MD [facility] 05/25/2024 Last Documented On 5 1:23PM ; [facility] Triamcinolone/Kenalog, 10mg per cc [id number] Sacroiliitis, not elsewhere classified Beth Chisholm MD [facility] 05/25/2024 Last Documented On 5 1:23PM ; [facility] Medical History Includes: Medical History addressed during this encounter No Medical History Recorded Family History Includes: Family History addressed during this encounter No Family History Recorded Review of Systems Includes: Review of Systems from this encounter No Review of Systems Recorded Mental Status Includes: Mental Status from this encounter No Mental Status Recorded Functional Status Includes: Functional Status from this encounter No Functional Status Recorded Physical Exam Includes: Physical Exam from this encounter No Physical Exam Recorded Allergies Includes: Active Allergies Substance Type Reaction Onset Date Resolved Date Statu s Sulfa Antibiotics Allergy Hives / Urticaria 02/24/2023 Active Last Documented On 5 3:29PM ; [facility] Encounters Encounter Provider Location Date Check-In Time Check-Out Time Diagnosis SI joint injection ANGEL SALAZAR PA-C [facility] 05/25/19 25 10:15AM 10:28AM Insurance Includes: Active Insurance Policies Plan Name Member ID Group # Subscriber Relationship Effect jaqui Dates 1 - [employer] [id number] Lizeth Leyva Self 05/20/2021 - Unknown Clinical Notes Includes: Clinical Notes from this encounter * Progress note Date Encounter Last Documented by 05/25/2024 SI joint injection Last document ed on 07/07/2024; 9:25 AM, ANGEL SALAZAR PA-C; [facility] Plan Diagnosis: SI Joint OA Procedure: Patient presents today for injection into the Right SI joint under fluoroscopy. Patient was placed on the fluoroscopy table. Patient was examined determining the localized area of pain over the right SI joint. Once this was performed the skin was then prepped with ChloraPrep and skin anesthetized with 1% lidocaine. Fluoroscopic guidance was used to place the 22-gauge needle into the sacroiliac joint at the most painful area. At that point a small amount of contrast was injected to confirm placement within the joint. And once confirmed an injection of bupivacaine and 40 mg of Kenalog was injected. Patient tolerated the procedure well. Sterile dressing was placed over the puncture site. And patient left the procedure room in stable condition. Follow-up evaluation approximately 10 minutes postprocedure revealing- % pain relief Patient could not tell if she had any relief yet. She will let us know at her follow up appointment. Notes This dictation was done with voice recognition software and may contain errors and omissions.
--- OUTSIDE RECORDS SUMMARY | 2024-08-12 22:18 | XMS_ITS ---
Author Organization [facility] , [facility] Address [address] [place] [address] Phone Care Team Providers Care Ship Erector Name Role Phone OSMAN FORRESTER, LESLIE Unavailable [phone] Kathrine FORRESTER, Beth Unavailable [phone] Problems Includes: Active, inactive, and resolved Problems All Visits Onset Date Resolved Date Provider Condition S tatus Lower Back Pain 02/24/2023 Beth carl MD Active Last Documented On 3 8:54AM ; [facility], [facility] Plan of Treatment Findings Encounter Date Patient screened for future fall risk: documentation of any fall with injury in past year Follow Up with Beth Chisholm MD 05/17/2024 Last Documented On 5 3:57PM ; [facility], [facility] Patient screened for future fall risk: documentation of any fall with injury in past year Follow Up with Beth Chisholm MD 02/23/2024 Last Documented On 4 2:36PM ; [facility], [facility] Patient screened for future fall risk: documentation of any fall with injury in past year Post Op with Beth Chisholm MD 11/17/2023 Last Documented On 4 11:07AM ; [facility] Patient screened for future fall risk: documentation of any fall with injury in past year Post Op with Beth Chisholm MD 10/20/2023 Last Documented On 4 8:58AM ; [facility], [facility] Patient screened for future fall risk: documentation of any fall with injury in past year Follow Up with Beth Chisholm MD 09/08/2023 Last Documented On 4 12:21PM ; [facility] Future Appointments Date Time Location Provi jose Follow Up 08/16/2024 1:15PM [facility] ZACHARY Chisholm MD Last Documented On 5 3:56PM ; [facility] Follow Up 10/25/2024 1:15PM [facility] ZACHARY Chisholm MD Last Documented On 4 2:15PM ; [facility] Instructions to patient Lose weight Last Documented On 5 3:29PM ; [facility] Lose weight Last Documented On 4 2:02PM ; [facility] Lose weight Last Documented On 4 3:02PM ; [facility] Lose weight Last Documented On 4 2:42PM ; [facility] Lose weight Last Documented On 4 9:00AM ; [facility] Lose weight Last Documented On 4 1:13PM ; [facility] Lose weight Last Documented On 4 10:29AM ; [facility] Lose weight Last Documented On 3 9:32AM ; [facility] Lose weight Last Documented On 3 9:02AM ; [facility] Assessments Includes: Assessments for all patient encounters Findings Encounter Date Overweight Follow Up with Beth Leyva MD 05/17/2024 Last Documented On 5 3:57PM ; [facility] Overweight Follow Up with Beth Leyva MD 02/23/2024 Last Documented On 4 2:36PM ; [facility] Overweight Post Op with Beth zurita MD 11/17/2023 Last Documented On 4 11:07AM ; [facility] Overweight Post Op with Beth zurita MD 10/20/2023 Last Documented On 4 8:58AM ; [facility] Overweight Follow Up with Beth Leyva MD 09/08/2023 Last Documented On 4 12:21PM ; [facility] Overweight Follow Up with ANGEL Mcdonald 08/19/2023 Last Documented On 4 2:07PM ; [facility] Overweight Follow Up with ANGEL Mcdonald 05/14/2023 Last Documented On 4 11:48AM ; [facility] Overweight Follow Up with Beth Leyva MD 03/31/2023 Last Documented On 3 12:52PM ; [facility] Overweight Physician Specified with Beth Chisholm MD 02/24/2023 Last Documented On 3 12:56PM ; [facility] Instructions Includes: Instructions for all patient encounters Instructions to patient Lose weight Last Documented On 5 3:29PM ; [facility] Lose weight Last Documented On 4 2:02PM ; [facility] Lose weight Last Documented On 4 3:02PM ; [facility] Lose weight Last Documented On 4 2:42PM ; [facility] Lose weight Last Documented On 4 9:00AM ; [facility] Lose weight Last Documented On 4 1:13PM ; [facility] Lose weight Last Documented On 4 10:29AM ; [facility] Lose weight Last Documented On 3 9:32AM ; [facility] Lose weight Last Documented On 3 9:02AM ; [facility] Medical Equipment - Implanted Devices Includes: Current and historical Devices No Medical Equipment Recorded Medications Includes: Current and historical Medications Current Medications (continue as prescribed) Losartan Potassium 25 MG Oral Tablet 07/09/2023 Prov ider: LESLIE BREWER MD Diagnosis: Last Documented On 4 9:03AM By Beth Chisholm ; [facility] Xarelto 20 MG Oral Tablet 06/09/2023 Provider: ST MARLEEN BREWER MD Diagnosis: Last Documented On 4 9:03AM By Beth Chisholm ; [facility] Rybelsus 7 MG Oral Tablet 06/09/2023 Provider: ST MARLEEN BREWER MD Diagnosis: Last Documented On 4 9:03AM By Beth Chisholm ; [facility], [facility] Levothyroxine Sodium 50 MCG Oral Tablet 06/07/2023 Daquan titus: LESLIE BREWER MD Diagnosis: Last Documented On 4 9:03AM By Beth Chisholm ; 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, lumbar region Take 1 tablet PO Q4H NEED ED-may take with tylenol Last Documented On 4 11:38AM By Beth Chisholm ; [facility] Methocarbamol 750 MG Oral Tablet 10/08/2023 - 11/07/2023 Provider: Beth Chisholm MD Diagnosis: Spinal stenosis, lumbar region without neurogenic noah Take 1 tablet PO up to 3 bonnie es a day as needed Last Documented On 4 5:50PM By Beth Chisholm ; [facility] Docusate Sodium 100 MG Oral Capsule 10/08/2023 - 11/07/2023 Provider: Beth Chisholm MD Diagnosis: Spinal stenosis, lumbar region without neurogenic noah Take 1 capsule PO twice a da y for constipation Last Documented On 4 5:50PM By Beth Chisholm ; [facility], [facility] HYDROcodone-Acetaminophen 7. 5-325 MG Oral Tablet 08/25/2023 - 09/24/2023 Provider: LESLIE BREWER MD Diagnosis: Last Documented On 4 2:04PM By Linette Gonzales ; [facility], [facility] Chlorhexidine Gluconate 0.12 % Mouth/Throat Solution 07/15/2023 - 07/29/2023 Provider: Diagnosis: Last Documented On 4 2:05PM By Linette Gonzales ; [facility], [facility] Medrol 4 MG Oral Tablet Ther apy Pack 05/14/2023 - 06/13/2023 Provider: ANGEL Billy Diagnosis: take as directed Last Documented On 4 11:56AM By Angela Green ; [facility], [facility] Baclofen 10 MG Oral Tablet 02/24/2023 - 03/27/2023 Pro vider: Diagnosis: Last Documented On 4 9:02AM By Beth Chisholm ; [facility], [facility] Methocarbamol 500 MG Oral Tablet 02/10/2023 - 02/26/20 Provider: LESLIE BREWER MD Diagnosis: Last Documented On 4 9:02AM By Beth Chisholm ; [facility], [facility] Xarelto 20 MG Oral Tablet 11/27/2022 - 02/27/2023 Prov ider: LESLIE BREWER MD Diagnosis: Last Documented On 4 9:02AM By Beth Chisholm ; [facility], [facility] Losartan Potassium 25 MG Ora l Tablet 04/05/2022 - 07/04/2022 Provider: LESLIE Giang Diagnosis: Last Documented On 4 9:02AM By Beth Chisholm ; [facility], [facility] Levothyroxine Sodium 50 MCG Oral Tablet 02/25/2022 - 05/28/2022 Provider: LESLIE Giang Diagnosis: Last Documented On 4 9:02AM By Beth Chisholm ; [facility], [facility] Medications Administered Includes: Administered Medications in patient's chart No Administered Medications Recorded Vital Signs Includes: Vital Signs from 08/13/2023 through 08/12/2024 Vital Name 05/17/2024 03:35P 02/23/2024 02:05P 11/17/2023 03:09P 10/20/2023 02:44P 09/08/2023 09:01A Height (in) 64 64 64 64 64 Weight (lb) 254 250 258 252 248.6 Body Mass Index 43.6 42.9 44.3 43.3 42.7 Body Surface Area 2.2 2.2 2.2 2.2 2.1 Pain Level 3 1 0 Note: clw cd HL LC Last Documented: On 05/17/2024 3:35PM ; [facility] On 02/23/2024 2:05PM ; [facility] On 11/17/2023 3:09PM ; [facility] On 10/20/2023 2:44PM ; [facility] On 09/08/2023 9:02AM ; [facility] Vital Name 08/19/2023 01:16P Height (in) 64 Weight (lb) 245 Body Mass Index 42.1 Body Surface Area 2.1 Note: pw Last Documented: On 08/19/2023 1:16PM ; [facility] Results Includes: Results from 08/13/2023 through 08/12/2024 No Results Recorded For Specified Dates History of Present Illness History of Present Illness not supported for this document type No History of Present Illness Recorded Social History Description Last Updated Tobacco non-user 02/24/2023 Last Documented On 3 12:56PM ; [facility] Caffeine use 02/24/2023 Last Documented On 3 12:56PM ; [facility] No recent change in diet 02/24/2023 Last Documented On 3 12:56PM ; [facility] Not a current smoker. 02/24/2023 Last Documented On 3 12:56PM ; [facility] Not exercising regularly 02/24/2023 Last Documented On 3 12:56PM ; [facility] Not using alcohol 02/24/2023 Last Documented On 3 12:56PM ; [facility] Not using drugs 02/24/2023 Last Documented On 3 12:56PM ; [facility] Smoking Status Unknown Procedures and Surgical History Includes: Procedures from 08/13/2023 through 08/12/2024 Procedures Code Diagnosis Performing Provider Service Location Service Date INJECT SACROILIAC JOINT (RIGHT) 58450 Sacroiliitis, not elsewhere classified Beth Chisholm MD [facility] 05/25/2024 Last Documented On 5 1:23PM ; [facility] Triamcinolone/Kenalog, 10mg per cc [id number] Sacroiliitis, not elsewhere classified Beth Chisholm MD [facility] 05/25/2024 Last Documented On 5 1:23PM ; [facility] DRAIN/INJECT, JOINT/BURSA (RIGHT) 07842 Trochanteric bursitis, right hip Beth Chisholm MD [facility] 11/17/2023 Last Documented On 4 9:16AM ; [facility] X-RAY EXAM OF LOWER SPINE 2-3 VIEWS LIMITED 00074 Spinal stenosis, lumbar region with neurogenic claudication Beth Chisholm MD [facility] 11/17/2023 Last Documented On 4 9:16AM ; [facility] Inj, Methylprednisolone acetate, 1 mg J1010 Trochanteric bursitis, right hip Beth Chisholm MD [facility] 11/17/2023 Last Documented On 4 9:16AM ; [facility] Facetectomy, lumbar 29601 Spinal stenosis, lumbar region with neurogenic claudication Beth Chisholm MD [facility] 10/09/2023 Last Documented On 4 1:51PM ; [facility] Surgical History Last Updated History of back surgery 10/09/2023 L4-5 Decompression @ [facility] 10/20/2023 Last Documented On 4 8:58AM ; [facility] Medical History Includes: Medical History in patient's chart Description Last Updated Past surgical history non-contributory 1 Last Documented On 3 12:56PM ; [facility] History of History of Blood Clots 2022 Last Documented On 3 12:56PM ; [facility] Family History Includes: Family History in patient's chart Description Last Updated Stroke / Seizures 02/24/2023 Last Documented On 3 12:56PM ; [facility] Review of Systems Review of Systems not supported for this document type No Review of Systems Recorded Mental Status No Mental Status Recorded Functional Status No Functional Status Recorded Physical Exam Physical Exam not supported for this document type No Physical Exam Recorded Allergies Includes: Active, inactive, and resolved Allergies Substance Type Reaction Onset Date Resolved Date Statu s Sulfa Antibiotics Allergy Hives / Urticaria 02/24/2023 Active Last Documented On 5 3:29PM ; [facility] Encounters Includes: Encounters from 08/13/2023 through 08/12/2024 Encounter Provider Location Date Check-In Time Check-Out Time Diagnosis SI joint injection ANGEL SALAZAR PA-C [facility] 05/25/19 25 10:15AM 10:28AM Follow Up Johnsen [facility] 05/17/19 25 3:21PM 4:01PM Overweight Follow Up Graysen [facility] 02/23/20 24 2:01PM 2:16PM Overweight Post Op Graysen [facility] 11/17/19 24 2:53PM 3:31PM Overweight Post Op Graysen [facility] 10/20/19 24 2:33PM 3:03PM Overweight [facility]en [facility] 10/09/19 24 10/08/2023 4:14PM 09/08/2023 11:59PM Follow Up Graysen [facility] 09/08/19 24 8:56AM 9:46AM Overweight Follow Up ANGEL SALAZAR PA-C [facility] 08/19/19 24 1:09PM 1:26PM Overweight Insurance Includes: Active Insurance Policies Plan Name Member ID Group # Subscriber Relationship Effect jaqui Dates 1 - [employer] [id number] Lizeth Quinnns Self 05/20/2021 - Unknown Clinical Notes Includes: Signed Clinical Notes starting from 04/18/2022 * Progress note Date Encounter Last Documented by 05/25/2024 SI joint injection Last document ed on 07/07/2024; 9:25 AM, ANGEL SALAZAR PA-C; [facility], [facility] Plan Diagnosis: SI Joint OA Procedure: Patient [...] software and may contain errors and omissions. * Progress note Date Encounter Last Documented by 05/17/2024 Follow Up Last documented on 07/07/2024; 3:57 PM, Beth Leyva MD; [facility], [facility] Active Problems & Conditions - Lower [...] treatment. - History of Physical Therapy @ [facility] - History of Home Exercise - [...] - Back surgery 10/09/2023 L4-5 Decompression @ [facility] Social History Not a current smoker. [...] Overweight Previous Tests Imaging: X-Ray: X-ray 02/24/2023 Dickson @ [facility] 11/17/2023 Dickson @ [facility]. MRI Scan: An MRI was performed 01/27/2023 Dickson @ [facility]. Counseling/Education - Tobacco non-user - Use of tobacco assessment performed - Lose weight Plan - Patient screened for future fall risk: documentation of any fall with injury in past year Practice Management Use of tobacco assessment performed Review of medications documented. Care Team - LESLIE BREWER MD - FI[employer] CONTR[employer]CH[employer]IC Notes This dictation was done with voice recognition software and may contain errors and omissions. Health Reminders - Assess BMI satisfied 05/17/2024. - Assess Tobacco Use satisfied 02/24/2023. - Follow Up Plan BMI Management satisfied 05/17/2024. * Progress note Date Encounter Last Documented by 02/23/2024 Follow Up Last documented on 02/23/2024; 2:36 PM, Beth Leyva MD; [facility], [facility] Active Problems & Conditions - Lower [...] treatment. - History of Physical Therapy @ [facility] - History of Home Exercise - History of Injections 03/06/2023 Bilat L4-S1 Facet Inj 04/17/2023 Bilat L4-S1 Facet Inj 2023 L4-5 [facility] - - Review of medications documented Medications used for this condition: This is a 68-year-old female following up with or 4 months status post L4-5 decompression. Overall, [...] - Back surgery 10/09/2023 L4-5 Decompression @ [facility] Social History Not a current smoker. [...] Imaging: X-Ray: An X-ray was performed 02/24/2023 LSronco @ [facility] 11/17/2023 LSpine @ [facility]. MRI Scan: An MRI was performed 01/27/2023 [facility] @ [facility]. Counseling/Education - Tobacco non-user - Use of tobacco assessment performed - Lose weight Plan - Patient screened for future fall risk: documentation of any fall with injury in past year Practice Management Use of tobacco assessment performed Review of medications documented. Care Team - LESLIE BREWER MD - FIRE CONTR[employer] MECHANIC Notes This dictation was done with voice recognition software and may contain errors and omissions. * Progress note Date Encounter Last Documented by 11/17/2023 Post Op Last documented on 11/20/2023; 11:07 AM, Beth Leyva MD; [facility], [facility] Active Problems & Conditions - Lower [...] treatment. - History of Physical Therapy @ [facility] - History of Home Exercise - [...] - Back surgery 10/09/2023 L4-5 Decompression @ [facility] Social History Not a current smoker. [...] An X-ray was performed 02/24/2023 Dickson @ [facility]. MRI Scan: An MRI was performed 01/27/2023 Dickson @ [facility]. Counseling/Education - Tobacco non-user - Use [...] Care Team - LESLIE BREWER MD - FI[employer] CONTR[employer] MECHANIC Notes This dictation was done with voice recognition software and may contain errors and omissions. * Progress note Date Encounter Last Documented by 10/20/2023 Post Op Last documented on 11/07/2023; 8:58 AM, Beth Leyva MD; [facility], [facility] Active Problems & Conditions - Lower [...] treatment. - History of Physical Therapy @ [facility] - History of Home Exercise - [...] - Back surgery 10/09/2023 L4-5 Decompression @ [facility] Social History Not a current smoker. [...] Imaging: X-Ray: An X-ray was performed 02/24/2023 MICHELLEronco @ [facility]. MRI Scan: An MRI was performed 01/27/2023 Dickson @ [facility]. Counseling/Education - Tobacco non-user - Use [...] Care Team - LESLIE BREWER MD - FIRE CONTR[employer] MECHANIC Notes This dictation was done with voice recognition software and may contain errors and omissions. * Progress note Date Encounter Last Documented by 09/08/2023 Follow Up Last documented on 09/08/2023; 12:21 PM, Beth Leyva MD; [facility] Active Problems & Conditions - Lower [...] time) - Patient pain level from 1-10: 7 -10 at night - Yes, previous treatment. - History of Physical Therapy @ [facility] - History of Home Exercise - History of Injections 03/06/2023 Bilat L4-S1 Facet Inj 04/17/2023 Bilat L4-S1 Facet Inj 2023 L4-5 [facility] - - Review of medications documented Medications used for this condition: This is a 68-year-old female following up with me on right lumbar radiculopathy and symptoms of lumbar stenosis. She reports pain that radiates from her low back down her right leg. She was recently told by her primary care physician that this is related to compression of the sciatic nerve in her lumbar spine. She has tried a significant course of nonoperative including physical therapy, epidural shots, facet shots and even SI joint unfortunately, none of these provided long-lasting relief although the epidurals in particular provided great short term pain relief Current Medication - Chlorhexidine Gluconate 0.12% Mouth/Throat [...] of Blood Clots Past surgical history non-contributory. Social History Not a current smoker. Current [...] and no abdominal pain. No Indigestion, no Acid Reflux, no Peptic Ulcer, no GI Stomach Bleed, and no Ulcers. Endocrine: No hot flashes. Muscle weakness and [...] allergic reaction. Physical Findings - Vitals taken 09/08/2023 09:01 am LC Height 64 in Weight 248 lbs 9.6 oz Body Mass Index 42.7 kg/m2 General: Alert and Oriented ? 3 Focused Musculoskeletal Exam of the Spine: Patient [...] clonus Symmetric, palpable posterior tibialis pulse bilaterally User Defined 5 This is a 68-year-old female with right lumbar radiculopathy with numbness and tingling going into the right lower extremity Including the right great toe. It was nice seeing Lizeth in the office today. I told her that I think on her MRI scan her pathology is somewhat on the mild side at L4-5 but there is some moderate central canal stenosis with some moderate to severe right lateral recess stenosis. Her clinical response to an L4-5 epidural was pretty dramatic for about 3-4 weeks. My hope is that an L4-5 decompression would relieve her symptoms to her satisfaction. She was very frustrated and feels as though she is tried everything she possibly could other than surgical intervention and she is very hopeful to schedule surgery to potentially provide her long-lasting benefit. I told her that my presumed operative plan would be an L4-5 decompression but I was very careful to tell her that this would almost in no way change her chronic low back pain. She voiced understanding of that but still said she would like to schedule the L4-5 decompression for potential partial relief of her right lumbar radiculopathy. The risks of the surgery were discussed and include but are not inclusive of the following: incomplete pain relief and ongoing symptoms following surgery, risk of blood loss possibly requiring blood transfusion, infection potentially requiring irrigation and debridement and nursing home antibiotic therapy, stone chimney mason or permanent neurologic deficit, CSF leak that may require further surgery, vascular injury, the potential need for revision surgery, and anesthesia related complications including cardiorespiratory issues, visual problems, and . We discussed that it would be impossible to enumerate any and all risks of surgery; however, all questions were elicited from the patient and answered to their satisfaction. No guarantees were given. We discussed that proper rehabilitation will be essential for the success of the surgery. After the appropriate medical clearances and insurance approvals, we will get the surgery scheduled. Fall Risk Assessment: This patient has been [...] An X-ray was performed 02/24/2023 Dickson @ [facility]. MRI Scan: An MRI was performed 01/27/2023 Dickson @ [facility]. Counseling/Education - Tobacco non-user - Use [...] Care Team - LESLIE BREWER MD - [employer] CONTR[employer] MECH[employer]IC Notes This dictation was done with voice recognition software and may contain errors and omissions. * Progress note Date Encounter Last Documented by 08/19/2023 Follow Up Last documented on 08/19/2023; 2:07 PM, ANGEL Spears; [facility] Active Problems & Conditions - Lower [...] Patient pain level from 1-10: was 0 6 - Yes, previous treatment. - History of Physical Therapy - History of Home Exercise - History of Injections 03/06/2023 Bilat L4-S1 Facet Inj Medications used for this condition: Patient returns following a recent lumbar epidural injection. Patient reports that for about 3 weeks she was completely pain-free. She had excellent response to the facet blocks that she had at the L4-5 and L5-S1 levels. But he is now started having increasing pain again. In the epidural injection provided excellent short-term relief. Patient has been having symptoms now for several years. We have been treating her since February of last year however she had been receiving treatment at other facilities for several years prior to her coming to see us. At this point it appears that we have done all we can do from a conservative standpoint. We may have to consider more permanent type procedure to help alleviate her pain. Therefore she will require referral onto Dr. Chisholm for surgical consultation. Current Medication - Baclofen 10 MG Oral Tablet take as directed 0 days, 0 refills - Levothyroxine Sodium 50 MCG Oral Tablet 90 days, 0 refills - Losartan Potassium 25 MG Oral Tablet 90 days, 0 refills - Methocarbamol 500 MG Oral Tablet 15 days, 0 refills - Xarelto 20 MG Oral Tablet 90 days, 0 refills Past Medical/Surgical History Diagnoses: History of Blood Clots Past surgical history non-contributory. Social History Not a current smoker. Current [...] and no abdominal pain. No Indigestion, no Acid Reflux, no Peptic Ulcer, no GI Stomach Bleed, and no Ulcers. Endocrine: No hot flashes. Muscle weakness and [...] allergic reaction. Physical Findings - Vitals taken 08/19/2023 01:16 pm pw Height 64 in 59 - 78 Weight 245 lbs 96 - 178 Body Mass Index 42.1 kg/m2 Body Surface Area 2.1 m2 At rest there has no lot of symptoms. She is able to get up done easily without assistance. He is after she had been standing or walking starts having increasing pain across the lumbosacral area and into both hips. With the worse side being on the right. She has pain with extension lesser pain with flexion. Hip knee and ankle motion normal. She does not have nerve root compression findings but she will describes some L5 radicular symptoms that affect the right leg especially with prolonged standing or walking. Assessment - Overweight Lumbar disc degeneration with facet arthropathy and stenosis predominantly at the L4-5 level. Conservative measures have not provided long-term relief for. Previous Tests Imaging: X-Ray: An X-ray was performed 02/24/2023 [place] @ [facility]. MRI Scan: An MRI was performed 01/27/2023 [place] @ [facility]. Counseling/Education - Lose weight Plan Fall Risk Assessment: This patient has been [...] therapy has been discussed with the patient. We will arrange for surgical consultation with Dr. Chisholm. Notes This dictation was done with voice recognition software and may contain errors and omissions. Practice Management Use of tobacco assessment performed and patient screened for future fall risk documentation of any fall with injury in past year Review of medications documented. Care Team - LESLIE BREWER MD - [employer] Health Reminders - Assess BMI satisfied 08/19/2023. - Assess Tobacco Use satisfied 02/24/2023. - Follow Up Plan BMI Management satisfied 08/19/2023.
== END 2024-08-11 23:59 | disposition home or self-care (01) ==
LOC: RAD 13:24
PROVIDERS: PCP Internal Medicine Adolescent Medicine; Visit Provider Internal Medicine Adolescent Medicine
DX: Z12.31 Encounter for screening mammogram for malignant neoplasm of breast (principal); R06.02 Shortness of breath; Z87.891 Personal history of nicotine dependence
CPT/HCPCS: 71271; 77063; 77067; 94010; 94640; 94727; 94729; J7613